=== PATIENT | male | born 1950 | race African-American/Black ===

== ENCOUNTER 2016-06-08 12:06 | Emergency (ER) | payer MEDICARE, MEDICAID ==
[~2016-06-08] VITALS: Ht 180.3 cm; Wt 112.0 kg
[~2016-06-08 12:06] MED LIST: ALBU05 IH; ALLO300T2 PO; COLC0.6T66 PO; COLCHICINE; DIAZ10TA4 PO; LISI20TA PO; METF500T PO; OMEP20CA4 PO; SOLI5TAB5 PO
[2016-06-08] MEDS ORDERED: ACETAMINOPHEN WITH CODEINE 300/30MG TABLET PO ONE (16:30)
[2016-06-08 16:35] VITALS: BP 166/84
== END 2016-06-08 17:30 | disposition home or self-care (01) ==
LOC: ER 16:24
DX: M25.561 Pain in right knee (principal); M54.5 Low back pain; M10.9 Gout, unspecified; I10 Essential (primary) hypertension; E11.9 Type 2 diabetes mellitus without complications; F17.210 Nicotine dependence, cigarettes, uncomplicated; Z88.6 Allergy status to analgesic agent; Z79.84 Long term (current) use of oral hypoglycemic drugs; Z79.899 Other long term (current) drug therapy; Z90.49 Acquired absence of other specified parts of digestive tract; Z96.659 Presence of unspecified artificial knee joint; Z82.49 Family history of ischemic heart disease and other diseases of the circulatory system
CPT/HCPCS: 99282

== ENCOUNTER 2017-06-22 06:46 | Emergency (ER) | payer MEDICARE, MEDICAID ==
[~2017-06-22] VITALS: Ht 180.3 cm; Wt 106.0 kg
[~2017-06-22 06:46] MED LIST changes: +ASCO-316 PO; +HYDR-519 PO; +OXYC30TA89 PO; +SOLI5TAB PO; -SOLI5TAB5 PO; +[UNRECOGNIZED DRUG - CODE] PO
[2017-06-22] MEDS ORDERED: METHYLPREDNISOLONE SOD SUCC 125 MG/2 ML VIAL IV STA (07:03)
[2017-06-22] MEDS ORDERED: IPRATROPIUM BROMIDE (0.02%) 0.5MG/2.5ML NEB HHN STA (07:03)
[2017-06-22] MEDS: ALBUTEROL (0.083%) 2.5MG/3ML NEB HHN SCH ×3 (07:15→08:23)
[2017-06-22 07:39] LABS: BASOPHILS % 0.9 % (0.0-2.0); HEMATOCRIT. 51.9 % (42.0-52.0); HEMOGLOBIN. 17.3 g/dL (14.0-18.0); LYMPHOCYTES % 28.3 % (20.0-50.0); MEAN CORPUSCULAR VOLUME 87.2 fL (80.0-94.0); MEAN PLATELET VOLUME 10.3 fl (7.4-10.4); MONOCYTES % 6.6 % (2.0-8.0); NEUTROPHILS % 61.2 % (40.0-76.0); PLATELET 93 x1000/uL (130-400); RED BLOOD CELL COUNT 5.95 mill/uL (4.7-6.1); RED CELL DISTRIBUTION WIDTH 15.6 % (11.6-14.6)
[2017-06-22 07:41] LABS: CHLORIDE 103 mEq/L (98-107)
[2017-06-22] MEDS ORDERED: ACETAMINOPHEN 325MG TABLET PO ONE (08:30)
[2017-06-22] MEDS ORDERED: ALBUTEROL (0.083%) 2.5MG/3ML NEB HHN ONE (10:45)
[2017-06-22] MEDS ORDERED: KETOROLAC 30MG/ML VIAL IV ONE (10:45)
[2017-06-22 11:50] VITALS: BP 140/74
== END 2017-06-22 12:10 | disposition home or self-care (01) ==
LOC: ER 06:46 → CANBEDREQ 12:41
DX: J44.1 Chronic obstructive pulmonary disease with (acute) exacerbation (principal); I10 Essential (primary) hypertension; E11.9 Type 2 diabetes mellitus without complications; E78.5 Hyperlipidemia, unspecified; E66.9 Obesity, unspecified; Z88.6 Allergy status to analgesic agent; Z88.8 Allergy status to other drugs, medicaments and biological substances; Z72.0 Tobacco use
CPT/HCPCS: 36415; 71045; 80053; 83880; 84484; 85025; 93005; 94640; 96374; 96375; 99285; J1885; J2930; J7611

== ENCOUNTER 2018-04-04 06:19 | Inpatient (IN) | payer MEDICARE, MEDICAID ==
[~2018-04-04] VITALS: Ht 180.3 cm; Wt 127.6 kg
[2018-04-04] MEDS: BLOOD SUGAR DIAGNOSTIC STRIP TEST SCH ×2 (01:32→17:02)
[~2018-04-04 06:19] MED LIST changes: -COLCHICINE; -SOLI5TAB PO
[2018-04-04] MEDS ORDERED: IPRATROPIUM BROMIDE (0.02%) 0.5MG/2.5ML NEB HHN STA (06:25)
[2018-04-04] MEDS ORDERED: METHYLPREDNISOLONE SOD SUCC 125 MG/2 ML VIAL IV STA (06:25)
[2018-04-04] MEDS ORDERED: ALBUTEROL (0.083%) 2.5MG/3ML NEB HHN STA (06:25)
[2018-04-04] MEDS ORDERED: SODIUM CHLORIDE 0.9% 1,000 ML IV ONE (06:28)
[2018-04-04 07:24] LABS: BASOPHILS % 0.8 % (0.0-2.0); EOSINOPHILS % 2.7 % (0.0-5.0); HEMATOCRIT. 57.1 % (42.0-52.0); HEMOGLOBIN. 18.9 g/dL (14.0-18.0); MEAN CORPUSCULAR VOLUME 87.9 fL (80.0-94.0); MEAN PLATELET VOLUME 9.3 fl (7.4-10.4); MONOCYTES % 8.4 % (2.0-8.0); NEUTROPHILS % 63.1 % (40.0-76.0); PLATELET 123 x1000/uL (130-400); RED BLOOD CELL COUNT 6.49 mill/uL (4.7-6.1); RED CELL DISTRIBUTION WIDTH 15.5 % (11.6-14.6)
[2018-04-04 07:31] LABS: CHLORIDE 97 mEq/L (98-107)
[2018-04-04 07:37] LABS: INR 1.2; PROTHROMBIN TIME 11.8 sec (9.1-11.1)
[2018-04-04 08:37] LABS: BG BASE EXCESS 2.5 mmol/L (-2.0-2.0); BG BILEVEL POS AIRWAY PRESSURE 15/5; BG CARBOXYHEMOGLOBIN 0.7 % (0.5-1.5); BG DEOXYHEMOGLOBIN 2.1 % (0.0-5.0); BG HCO3 ACT 28.8 mmol/L (22.0-26.0); BG METHEMOGLOBIN 0.5 % (0.0-1.5); BG OXYGEN SATURATION 97.9 % (92.0-98.5); BG OXYHEMOGLOBIN 96.7 % (94.0-97.0); BG PCO2 50.1 mmHg (35.0-45.0); BG PH 7.378 (7.350-7.450); BG PO2 107.5 mmHg (75.0-100.0); BG SAMPLE SITE RIGHT RADIAL; BG VENT MODE MASK - BIPAP; BG VENT RATE 18 set
[2018-04-04] MEDS ORDERED: LEVOFLOXACIN 750MG PREMIX 150 ML IV ONE (09:15)
[2018-04-04] MEDS ORDERED: LIDOCAINE HCL/PF 1% 2ML VIAL ONE (13:09)
[2018-04-04] MEDS ORDERED: DIPHENHYDRAMINE 50MG/ML VIAL IV PRN (13:30)
[2018-04-04] MEDS ORDERED: GUAIFENESIN 200MG/10ML SUGAR FREE UDC PO PRN (13:30)
[2018-04-04] MEDS ORDERED: ONDANSETRON HCL 4MG/2ML INJ IV PRN (13:30)
[2018-04-04] MEDS ORDERED: ACETAMINOPHEN 650MG SUPP PR PRN (13:30)
[2018-04-04] MEDS ORDERED: ACETAMINOPHEN 325MG TABLET PO PRN (13:30)
[2018-04-04] MEDS ORDERED: IPRATROPIUM/ALBUTEROL 0.5-3(2.5)MG/3ML NEB INH PRN (13:30)
[2018-04-04] MEDS ORDERED: CLONIDINE 0.1MG TABLET PO PRN (13:30)
[2018-04-04] MEDS ORDERED: LORAZEPAM 0.5MG TABLET PO PRN (13:30)
[2018-04-04] MEDS ORDERED: DOCUSATE SODIUM 100MG CAPSULE PO PRN (13:30)
[2018-04-04] MEDS ORDERED: NA PHOS,M-B/NA PHOS,DI-BA ENEMA 118ML PR PRN (13:30)
[2018-04-04] MEDS: IPRATROPIUM/ALBUTEROL 0.5-3(2.5)MG/3ML NEB INH SCH ×2 (13:30→16:36)
[2018-04-04] MEDS ORDERED: MAGNESIUM/ALUMINUM HYDROXIDE/SIMETHICONE 30ML UDC PO PRN (13:30)
[2018-04-04 14:54] LABS: HEMATOCRIT 52.4 % (42.0-52.0); HEMOGLOBIN 17.4 g/dL (14.0-18.0); MEAN CORPUSCULAR HEMOGLOBIN 29.2 pg (28.0-32.0); PLATELET 116 x1000/uL (130-400); RED BLOOD CELL COUNT 5.95 mill/uL (4.7-6.1); RED CELL DISTRIBUTION WIDTH 15.2 % (11.6-14.6)
[2018-04-04] MEDS ORDERED: CEFTRIAXONE 1 G PREMIX 50 ML IV SCH (15:00)
[2018-04-04] MEDS ORDERED: AZITHROMYCIN 500 MG in DEXT 5% WATER 250 ML IV SCH ×6 (15:00)
[2018-04-04 15:01] LABS: CHLORIDE 100 mEq/L (98-107)
[2018-04-04 15:09] LABS: CREATINE KINASE 966 IU/L (39-308)
[2018-04-04 15:10] LABS: CREATINE KINASE MB FRACTION 9.9 ng/mL (0.5-3.6)
[2018-04-04] MEDS: METHYLPREDNISOLONE SOD SUCC 40 MG/ML VIAL IV SCH (15:24)
[2018-04-04] MEDS ORDERED: LISINOPRIL 20 MG PO SCH (16:00)
[2018-04-04] MEDS ORDERED: DEXTROSE 50% WATER 50ML SYRINGE IV PRN (16:00)
[2018-04-04] MEDS ORDERED: BUDESONIDE 0.5MG/2ML NEB HHN SCH (16:15)
[2018-04-04] MEDS: SODIUM CHLORIDE 0.45% 1,000 ML IV SCH (16:40)
[2018-04-04 17:43] LABS: HEPATITIS B SURFACE ANTIGEN NEGATIVE
[2018-04-04 18:12] LABS: HEPATITIS A AB IGM NEGATIVE (NEGATIVE)
[2018-04-04] MEDS: INSULIN LISPRO 100 UNITS/ML SUBCUT SCH (18:20)
[2018-04-04] MEDS ORDERED: NITROGLYCERIN OINT 1GM/INCH UDPKT TD NR (19:00)
[2018-04-05] VITALS (12 sets, daily range): BP systolic 122–146; BP diastolic 68–96
[2018-04-05] MEDS: IPRATROPIUM/ALBUTEROL 0.5-3(2.5)MG/3ML NEB INH SCH ×6 (00:46→20:53)
[2018-04-05] MEDS: METHYLPREDNISOLONE SOD SUCC 40 MG/ML VIAL IV SCH ×4 (01:31→22:52)
[2018-04-05] MEDS: INSULIN LISPRO 100 UNITS/ML SUBCUT SCH ×5 (01:31→21:48)
[2018-04-05] MEDS: LOSARTAN POTASSIUM 25 MG TABLET PO SCH ×3 (01:31→21:00)
[2018-04-05] MEDS: NITROGLYCERIN OINT 1GM/INCH UDPKT TD SCH ×5 (01:31→21:46)
[2018-04-05] MEDS: HYDROCODONE/APAP 7.5/325MG 1 TAB TABLET PO PRN ×3 (01:58→21:49)
[2018-04-05] MEDS ORDERED: ENOXAPARIN 100MG/ML SYR SUBCUT SCH (05:00)
[2018-04-05 06:32] LABS: BASOPHILS % 0.5 % (0.0-2.0); HEMATOCRIT. 49.6 % (42.0-52.0); HEMOGLOBIN. 16.2 g/dL (14.0-18.0); LYMPHOCYTES % 9.7 % (20.0-50.0); MEAN CORPUSCULAR HEMOGLOBIN 28.7 pg (28.0-32.0); MEAN CORPUSCULAR VOLUME 87.8 fL (80.0-94.0); MEAN PLATELET VOLUME 9.5 fl (7.4-10.4); MONOCYTES % 4.2 % (2.0-8.0); NEUTROPHILS % 85.6 % (40.0-76.0); PLATELET 115 x1000/uL (130-400); RED BLOOD CELL COUNT 5.65 mill/uL (4.7-6.1); RED CELL DISTRIBUTION WIDTH 15.4 % (11.6-14.6)
[2018-04-05 06:43] LABS: CHLORIDE 103 mEq/L (98-107)
[2018-04-05 06:53] LABS: CREATINE KINASE MB FRACTION 12.5 ng/mL (0.5-3.6); LDL CHOLESTEROL 42 mg/dL (5-100)
[2018-04-05 06:54] LABS: CREATINE KINASE 814 IU/L (39-308)
[2018-04-05 06:55] LABS: T4 FREE 1.08 ng/dL (0.76-1.46)
[2018-04-05 06:56] LABS: HDL CHOLESTEROL 41 mg/dL (40-59)
[2018-04-05] MEDS: BLOOD SUGAR DIAGNOSTIC STRIP TEST SCH ×4 (07:30→21:30)
[2018-04-05] MEDS: OMEPRAZOLE 20MG CAPSULE EXTENDED RELEASE PO SCH (07:30)
[2018-04-05] MEDS: METFORMIN HCL 500MG TABLET PO SCH ×2 (08:00→17:29)
[2018-04-05] MEDS: VITAMIN E 1,000 UNIT CAPSULE PO SCH (09:00)
[2018-04-05 09:21] LABS: BG BASE EXCESS 2.2 mmol/L (-2.0-2.0); BG BILEVEL POS AIRWAY PRESSURE 15/5; BG CARBOXYHEMOGLOBIN 0.6 % (0.5-1.5); BG DEOXYHEMOGLOBIN 1.9 % (0.0-5.0); BG FRACTION INSPIRED OXYGEN 40; BG HCO3 ACT 27.8 mmol/L (22.0-26.0); BG METHEMOGLOBIN 0.4 % (0.0-1.5); BG OXYGEN SATURATION 98.1 % (92.0-98.5); BG OXYHEMOGLOBIN 97.1 % (94.0-97.0); BG PCO2 46.4 mmHg (35.0-45.0); BG PH 7.396 (7.350-7.450); BG PO2 115.9 mmHg (75.0-100.0); BG SAMPLE SITE RIGHT RADIAL; BG TOTAL HEMOGLOBIN 17.9 g/dL (12.0-18.0); BG VENT MODE MASK - BIPAP
[2018-04-05] MEDS: ASCORBIC ACID 500 MG TABLET PO SCH (09:32)
[2018-04-05] MEDS: ALLOPURINOL 300 MG TABLET PO SCH (09:33)
[2018-04-05] MEDS: COLCHICINE 0.6MG TABLET PO SCH (09:34)
[2018-04-05] MEDS: SODIUM CHLORIDE 0.45% 1,000 ML IV SCH (09:35)
[2018-04-05] MEDS: BUDESONIDE 0.5MG/2ML NEB HHN SCH ×2 (09:55→20:53)
[2018-04-05] MEDS ORDERED: CEFTRIAXONE 1 G PREMIX 50 ML IV SCH (13:00)
[2018-04-05] MEDS ORDERED: AZITHROMYCIN 500 MG in DEXT 5% WATER 250 ML IV SCH (14:00)
[2018-04-05] MEDS: CEFTRIAXONE 1,000 MG in DEXTROSE 5% WATER 50 ML IV SCH (14:57)
[2018-04-05] MEDS ORDERED: ASPIRIN 81MG EC TABLET PO SCH (15:30)
[2018-04-05] MEDS: ENOXAPARIN 150MG/ML SYR SUBCUT SCH (17:29)
[2018-04-06] VITALS (12 sets, daily range): BP systolic 109–160; BP diastolic 66–101
[2018-04-06] MEDS: IPRATROPIUM/ALBUTEROL 0.5-3(2.5)MG/3ML NEB INH SCH ×6 (00:37→21:14)
[2018-04-06] MEDS: SODIUM CHLORIDE 0.45% 1,000 ML IV SCH ×2 (01:37→13:04)
[2018-04-06] MEDS: ENOXAPARIN 150MG/ML SYR SUBCUT SCH ×2 (06:19→17:43)
[2018-04-06] MEDS: METHYLPREDNISOLONE SOD SUCC 40 MG/ML VIAL IV SCH ×3 (06:19→23:00)
[2018-04-06 07:24] LABS: BASOPHILS % 0.1 % (0.0-2.0); HEMATOCRIT. 47.4 % (42.0-52.0); HEMOGLOBIN. 15.6 g/dL (14.0-18.0); MEAN CORPUSCULAR HEMOGLOBIN 28.8 pg (28.0-32.0); MEAN CORPUSCULAR VOLUME 87.7 fL (80.0-94.0); MEAN PLATELET VOLUME 9.9 fl (7.4-10.4); MONOCYTES % 3.6 % (2.0-8.0); NEUTROPHILS % 88.3 % (40.0-76.0); PLATELET 131 x1000/uL (130-400); RED CELL DISTRIBUTION WIDTH 15.4 % (11.6-14.6)
[2018-04-06] MEDS: BLOOD SUGAR DIAGNOSTIC STRIP TEST SCH ×4 (07:30→21:20)
[2018-04-06 07:32] LABS: CHLORIDE 104 mEq/L (98-107)
[2018-04-06 07:44] LABS: CREATINE KINASE 440 IU/L (39-308)
[2018-04-06 07:44] LABS: CLARITY URINE CLEAR (CLEAR); COLOR URINE YELLOW (YELLOW); KETONES URINE NEGATIVE (NEGATIVE); LEUKOCYTE ESTERASE URINE NEGATIVE (NEGATIVE); NITRITE URINE NEGATIVE (NEGATIVE); OCCULT BLOOD URINE NEGATIVE (NEGATIVE); PH URINE 5.5 (4.5-8.0); PROTEIN URINE 1+ (NEGATIVE); UROBILINOGEN URINE 0.2 E.U./dL (0.2-1.0)
[2018-04-06 07:50] LABS: CREATINE KINASE MB FRACTION 10.5 ng/mL (0.5-3.6)
[2018-04-06 07:55] LABS: *AMPHETAMINES SCREEN URINE NEGATIVE (NEGATIVE); *BARBITURATES SCREEN URINE NEGATIVE (NEGATIVE); *BENZODIAZEPINES SCREEN URINE PRESUMTIVE POSITIVE (NEGATIVE); *COCAINE SCREEN URINE NEGATIVE (NEGATIVE)
[2018-04-06 07:56] LABS: CANNABINOID URINE SCREEN NEGATIVE (NEGATIVE); METHADONE URINE SCREEN NEGATIVE (NEGATIVE); OPIATES URINE SCREEN PRESUMTIVE POSITIVE (NEGATIVE); PHENCYCLIDINE URINE SCREEN NEGATIVE (NEGATIVE)
[2018-04-06] MEDS: COLCHICINE 0.6MG TABLET PO SCH (08:35)
[2018-04-06] MEDS: ASCORBIC ACID 500 MG TABLET PO SCH (08:35)
[2018-04-06] MEDS: LOSARTAN POTASSIUM 25 MG TABLET PO SCH ×2 (08:37→20:30)
[2018-04-06] MEDS: NITROGLYCERIN OINT 1GM/INCH UDPKT TD SCH ×4 (08:37→20:30)
[2018-04-06] MEDS: METFORMIN HCL 500MG TABLET PO SCH ×2 (08:38→17:43)
[2018-04-06] MEDS: OMEPRAZOLE 20MG CAPSULE EXTENDED RELEASE PO SCH (08:38)
[2018-04-06] MEDS: INSULIN LISPRO 100 UNITS/ML SUBCUT SCH ×4 (08:40→20:27)
[2018-04-06 09:03] LABS: BG BASE EXCESS 3.5 mmol/L (-2.0-2.0); BG CARBOXYHEMOGLOBIN 0.6 % (0.5-1.5); BG DEOXYHEMOGLOBIN 7.3 % (0.0-5.0); BG FRACTION INSPIRED OXYGEN 21; BG HCO3 ACT 30.9 mmol/L (22.0-26.0); BG METHEMOGLOBIN 0.2 % (0.0-1.5); BG OXYGEN SATURATION 92.6 % (92.0-98.5); BG OXYHEMOGLOBIN 91.9 % (94.0-97.0); BG PCO2 56.9 mmHg (35.0-45.0); BG PH 7.353 (7.350-7.450); BG SAMPLE SITE LEFT RADIAL; BG TOTAL HEMOGLOBIN 16.8 g/dL (12.0-18.0); BG VENT MODE ROOM AIR
[2018-04-06] MEDS: BUDESONIDE 0.5MG/2ML NEB HHN SCH ×2 (09:26→21:13)
[2018-04-06] MEDS: VITAMIN E 1,000 UNIT CAPSULE PO SCH (09:38)
[2018-04-06] MEDS: ALLOPURINOL 300 MG TABLET PO SCH (09:38)
[2018-04-06] MEDS: HYDROCODONE/APAP 7.5/325MG 1 TAB TABLET PO PRN ×2 (11:35→22:58)
[2018-04-06] MEDS: THROAT LOZENGES-BENZOCAINE/MENTH/CETYLPYRD CL LOZENGES MM PRN ×2 (12:50→18:00)
[2018-04-06] MEDS: CEFTRIAXONE 1,000 MG in DEXTROSE 5% WATER 50 ML IV SCH (13:45)
[2018-04-06] MEDS ORDERED: AZITHROMYCIN 500 MG in DEXT 5% WATER 250 ML IV SCH (14:00)
[2018-04-07] VITALS (12 sets, daily range): BP systolic 124–167; BP diastolic 38–97
[2018-04-07] MEDS: IPRATROPIUM/ALBUTEROL 0.5-3(2.5)MG/3ML NEB INH SCH ×7 (00:47→23:52)
[2018-04-07] MEDS: ENOXAPARIN 150MG/ML SYR SUBCUT SCH ×2 (06:06→17:19)
[2018-04-07] MEDS: METHYLPREDNISOLONE SOD SUCC 40 MG/ML VIAL IV SCH ×3 (06:06→20:44)
[2018-04-07] MEDS: HYDROCODONE/APAP 7.5/325MG 1 TAB TABLET PO PRN ×2 (06:06→20:36)
[2018-04-07] MEDS: BLOOD SUGAR DIAGNOSTIC STRIP TEST SCH ×4 (07:47→21:00)
[2018-04-07] MEDS: ALLOPURINOL 300 MG TABLET PO SCH (08:23)
[2018-04-07] MEDS: COLCHICINE 0.6MG TABLET PO SCH (08:23)
[2018-04-07] MEDS: VITAMIN E 1,000 UNIT CAPSULE PO SCH (08:23)
[2018-04-07] MEDS: OMEPRAZOLE 20MG CAPSULE EXTENDED RELEASE PO SCH (08:23)
[2018-04-07] MEDS: AZITHROMYCIN 500 MG TABLET PO SCH (08:23)
[2018-04-07] MEDS: LOSARTAN POTASSIUM 25 MG TABLET PO SCH ×2 (08:23→20:36)
[2018-04-07] MEDS: ASCORBIC ACID 500 MG TABLET PO SCH (08:23)
[2018-04-07] MEDS: NITROGLYCERIN OINT 1GM/INCH UDPKT TD SCH ×4 (08:23→20:36)
[2018-04-07] MEDS: METFORMIN HCL 500MG TABLET PO SCH ×2 (08:23→17:14)
[2018-04-07] MEDS: INSULIN LISPRO 100 UNITS/ML SUBCUT SCH ×4 (08:25→20:44)
[2018-04-07] MEDS: BUDESONIDE 0.5MG/2ML NEB HHN SCH ×2 (09:17→21:00)
[2018-04-07] MEDS: THROAT LOZENGES-BENZOCAINE/MENTH/CETYLPYRD CL LOZENGES MM PRN ×2 (11:35→17:14)
[2018-04-07] MEDS: CEFTRIAXONE 1,000 MG in DEXTROSE 5% WATER 50 ML IV SCH (14:34)
[2018-04-07] MEDS: FAMOTIDINE 20MG TABLET PO SCH (20:46)
[2018-04-08] VITALS (12 sets, daily range): BP systolic 115–168; BP diastolic 69–99
[2018-04-08] MEDS: IPRATROPIUM/ALBUTEROL 0.5-3(2.5)MG/3ML NEB INH SCH ×5 (05:03→21:38)
[2018-04-08] MEDS: ENOXAPARIN 150MG/ML SYR SUBCUT SCH ×2 (05:48→18:00)
[2018-04-08] MEDS: METHYLPREDNISOLONE SOD SUCC 40 MG/ML VIAL IV SCH ×2 (05:48→15:03)
[2018-04-08] MEDS: BLOOD SUGAR DIAGNOSTIC STRIP TEST SCH ×4 (08:03→21:28)
[2018-04-08] MEDS: BUDESONIDE 0.5MG/2ML NEB HHN SCH (08:13)
[2018-04-08] MEDS: ASCORBIC ACID 500 MG TABLET PO SCH (08:31)
[2018-04-08] MEDS: ALLOPURINOL 300 MG TABLET PO SCH (08:31)
[2018-04-08] MEDS: LOSARTAN POTASSIUM 25 MG TABLET PO SCH ×2 (08:31→21:28)
[2018-04-08] MEDS: VITAMIN E 1,000 UNIT CAPSULE PO SCH (08:31)
[2018-04-08] MEDS: AZITHROMYCIN 500 MG TABLET PO SCH (08:31)
[2018-04-08] MEDS: METFORMIN HCL 500MG TABLET PO SCH ×2 (08:31→18:02)
[2018-04-08] MEDS: FAMOTIDINE 20MG TABLET PO SCH ×2 (08:31→21:28)
[2018-04-08] MEDS: COLCHICINE 0.6MG TABLET PO SCH (08:32)
[2018-04-08] MEDS: INSULIN LISPRO 100 UNITS/ML SUBCUT SCH ×4 (08:33→21:30)
[2018-04-08] MEDS: NITROGLYCERIN OINT 1GM/INCH UDPKT TD SCH ×4 (08:34→21:28)
[2018-04-08] MEDS: CEFTRIAXONE 1,000 MG in DEXTROSE 5% WATER 50 ML IV SCH (15:04)
[2018-04-08] MEDS: HYDROCODONE/APAP 7.5/325MG 1 TAB TABLET PO PRN ×2 (16:17→21:58)
[2018-04-08] MEDS: THROAT LOZENGES-BENZOCAINE/MENTH/CETYLPYRD CL LOZENGES MM PRN (18:05)
[2018-04-09] VITALS (12 sets, daily range): BP systolic 129–168; BP diastolic 79–90
[2018-04-09] MEDS: IPRATROPIUM/ALBUTEROL 0.5-3(2.5)MG/3ML NEB INH SCH ×6 (00:40→21:04)
[2018-04-09] MEDS: METHYLPREDNISOLONE SOD SUCC 40 MG/ML VIAL IV SCH ×2 (02:45→15:48)
[2018-04-09] MEDS ORDERED: ENOXAPARIN 100MG/ML SYR SUBCUT NR (06:19)
[2018-04-09] MEDS ORDERED: ENOXAPARIN 30MG/0.3ML SYR SUBCUT NR (06:20)
[2018-04-09] MEDS: THROAT LOZENGES-BENZOCAINE/MENTH/CETYLPYRD CL LOZENGES MM PRN (06:26)
[2018-04-09 07:20] LABS: HEMATOCRIT 50.7 % (42.0-52.0); HEMOGLOBIN 16.6 g/dL (14.0-18.0); MEAN CORPUSCULAR HEMOGLOBIN 28.6 pg (28.0-32.0); MEAN CORPUSCULAR VOLUME 87.5 fL (80.0-94.0); PLATELET 134 x1000/uL (130-400); RED BLOOD CELL COUNT 5.79 mill/uL (4.7-6.1); RED CELL DISTRIBUTION WIDTH 15.2 % (11.6-14.6)
[2018-04-09] MEDS: BLOOD SUGAR DIAGNOSTIC STRIP TEST SCH ×4 (08:00→21:22)
[2018-04-09] MEDS: INSULIN LISPRO 100 UNITS/ML SUBCUT SCH ×4 (08:40→21:23)
[2018-04-09] MEDS: NITROGLYCERIN OINT 1GM/INCH UDPKT TD SCH ×4 (08:42→21:22)
[2018-04-09] MEDS: FAMOTIDINE 20MG TABLET PO SCH ×2 (08:42→21:22)
[2018-04-09] MEDS: LOSARTAN POTASSIUM 25 MG TABLET PO SCH ×2 (08:42→21:22)
[2018-04-09] MEDS: ASCORBIC ACID 500 MG TABLET PO SCH (08:42)
[2018-04-09] MEDS: COLCHICINE 0.6MG TABLET PO SCH (08:42)
[2018-04-09] MEDS: VITAMIN E 1,000 UNIT CAPSULE PO SCH (08:42)
[2018-04-09] MEDS: AZITHROMYCIN 500 MG TABLET PO SCH (08:42)
[2018-04-09] MEDS: ALLOPURINOL 300 MG TABLET PO SCH (08:42)
[2018-04-09] MEDS: METFORMIN HCL 500MG TABLET PO SCH ×2 (08:42→18:21)
[2018-04-09 09:02] LABS: BG BASE EXCESS 12.4 mmol/L (-2.0-2.0); BG CARBOXYHEMOGLOBIN 0.4 % (0.5-1.5); BG DEOXYHEMOGLOBIN 2.5 % (0.0-5.0); BG FRACTION INSPIRED OXYGEN 32; BG METHEMOGLOBIN 0.4 % (0.0-1.5); BG OXYGEN SATURATION 97.5 % (92.0-98.5); BG OXYHEMOGLOBIN 96.7 % (94.0-97.0); BG PCO2 66.4 mmHg (35.0-45.0); BG PH 7.408 (7.350-7.450); BG PO2 98.8 mmHg (75.0-100.0); BG SAMPLE SITE RIGHT RADIAL; BG TOTAL HEMOGLOBIN 17.5 g/dL (12.0-18.0); BG VENT MODE NASAL CANNULA
[2018-04-09 09:56] LABS: CHLORIDE 102 mEq/L (98-107)
[2018-04-09 10:04] LABS: CREATINE KINASE 240 IU/L (39-308)
[2018-04-09 10:06] LABS: CREATINE KINASE MB FRACTION 7.2 ng/mL (0.5-3.6)
[2018-04-09] MEDS: HYDROCODONE/APAP 7.5/325MG 1 TAB TABLET PO PRN ×2 (13:05→22:28)
[2018-04-09] MEDS ORDERED: LIDOCAINE HCL/PF 1% 2ML VIAL ONE (13:45)
[2018-04-09] MEDS: CEFTRIAXONE 1,000 MG in DEXTROSE 5% WATER 50 ML IV SCH (18:20)
[2018-04-09] MEDS: ENOXAPARIN 150MG/ML SYR SUBCUT SCH (18:22)
[2018-04-10] VITALS (11 sets, daily range): BP systolic 134–162; BP diastolic 62–97
[2018-04-10] MEDS: IPRATROPIUM/ALBUTEROL 0.5-3(2.5)MG/3ML NEB INH SCH ×4 (00:38→20:16)
[2018-04-10] MEDS: METHYLPREDNISOLONE SOD SUCC 40 MG/ML VIAL IV SCH (04:44)
[2018-04-10] MEDS: THROAT LOZENGES-BENZOCAINE/MENTH/CETYLPYRD CL LOZENGES MM PRN (06:21)
[2018-04-10] MEDS: ENOXAPARIN 150MG/ML SYR SUBCUT SCH (06:21)
[2018-04-10 06:56] LABS: HEMATOCRIT 50.8 % (42.0-52.0); HEMOGLOBIN 16.6 g/dL (14.0-18.0); MEAN CORPUSCULAR HEMOGLOBIN 28.5 pg (28.0-32.0); MEAN CORPUSCULAR VOLUME 87.5 fL (80.0-94.0); PLATELET 140 x1000/uL (130-400); RED BLOOD CELL COUNT 5.81 mill/uL (4.7-6.1); RED CELL DISTRIBUTION WIDTH 14.9 % (11.6-14.6)
[2018-04-10 07:16] LABS: CHLORIDE 99 mEq/L (98-107)
[2018-04-10] MEDS: BLOOD SUGAR DIAGNOSTIC STRIP TEST SCH ×4 (08:26→20:48)
[2018-04-10] MEDS: FAMOTIDINE 20MG TABLET PO SCH ×2 (08:52→20:45)
[2018-04-10] MEDS: VITAMIN E 1,000 UNIT CAPSULE PO SCH (08:52)
[2018-04-10] MEDS: LOSARTAN POTASSIUM 25 MG TABLET PO SCH ×2 (08:53→20:45)
[2018-04-10] MEDS: METFORMIN HCL 500MG TABLET PO SCH ×2 (08:53→18:00)
[2018-04-10] MEDS: ALLOPURINOL 300 MG TABLET PO SCH (08:53)
[2018-04-10] MEDS: ASCORBIC ACID 500 MG TABLET PO SCH (08:53)
[2018-04-10] MEDS: COLCHICINE 0.6MG TABLET PO SCH ×2 (08:53→09:00)
[2018-04-10] MEDS: AZITHROMYCIN 500 MG TABLET PO SCH (08:54)
[2018-04-10] MEDS: NITROGLYCERIN OINT 1GM/INCH UDPKT TD SCH ×4 (08:54→20:48)
[2018-04-10] MEDS: INSULIN LISPRO 100 UNITS/ML SUBCUT SCH ×4 (09:11→20:47)
[2018-04-10] MEDS ORDERED: LIDOCAINE HCL/PF 1% 2ML VIAL ONE (15:03)
[2018-04-10] MEDS: CEFTRIAXONE 1,000 MG in DEXTROSE 5% WATER 50 ML IV SCH (16:33)
[2018-04-10 18:53] LABS: BG BASE EXCESS 7.1 mmol/L (-2.0-2.0); BG CARBOXYHEMOGLOBIN 0.2 % (0.5-1.5); BG DEOXYHEMOGLOBIN 9.1 % (0.0-5.0); BG FRACTION INSPIRED OXYGEN 21; BG HCO3 ACT 34.2 mmol/L (22.0-26.0); BG METHEMOGLOBIN 0.4 % (0.0-1.5); BG OXYGEN SATURATION 90.8 % (92.0-98.5); BG OXYHEMOGLOBIN 90.3 % (94.0-97.0); BG PCO2 55.4 mmHg (35.0-45.0); BG PH 7.408 (7.350-7.450); BG PO2 60.3 mmHg (75.0-100.0); BG SAMPLE SITE RIGHT RADIAL; BG TOTAL HEMOGLOBIN 18.7 g/dL (12.0-18.0); BG VENT MODE ROOM AIR
[2018-04-10] MEDS: ENOXAPARIN 30MG/0.3ML SYR SUBCUT SCH (20:45)
[2018-04-10] MEDS: HYDROCODONE/APAP 7.5/325MG 1 TAB TABLET PO PRN (20:47)
[2018-04-11] VITALS (7 sets, daily range): BP systolic 128–163; BP diastolic 73–101
[2018-04-11] MEDS: IPRATROPIUM/ALBUTEROL 0.5-3(2.5)MG/3ML NEB INH SCH ×5 (01:07→16:22)
[2018-04-11] MEDS: METHYLPREDNISOLONE SOD SUCC 40 MG/ML VIAL IV SCH ×2 (03:39→15:43)
[2018-04-11 07:31] LABS: HEMATOCRIT 52.4 % (42.0-52.0); HEMOGLOBIN 17.2 g/dL (14.0-18.0); MEAN CORPUSCULAR HEMOGLOBIN 28.7 pg (28.0-32.0); MEAN CORPUSCULAR VOLUME 87.5 fL (80.0-94.0); PLATELET 145 x1000/uL (130-400); RED BLOOD CELL COUNT 5.99 mill/uL (4.7-6.1)
[2018-04-11 07:36] LABS: CHLORIDE 96 mEq/L (98-107)
[2018-04-11] MEDS: BLOOD SUGAR DIAGNOSTIC STRIP TEST SCH ×2 (08:03→17:28)
[2018-04-11] MEDS: METFORMIN HCL 500MG TABLET PO SCH ×2 (08:10→17:57)
[2018-04-11] MEDS: INSULIN LISPRO 100 UNITS/ML SUBCUT SCH ×3 (08:11→17:28)
[2018-04-11] MEDS: ENOXAPARIN 30MG/0.3ML SYR SUBCUT SCH (08:47)
[2018-04-11] MEDS: LOSARTAN POTASSIUM 25 MG TABLET PO SCH (08:48)
[2018-04-11] MEDS: FAMOTIDINE 20MG TABLET PO SCH (08:48)
[2018-04-11] MEDS: ALLOPURINOL 300 MG TABLET PO SCH (08:48)
[2018-04-11] MEDS: ASCORBIC ACID 500 MG TABLET PO SCH (08:48)
[2018-04-11] MEDS: VITAMIN E 1,000 UNIT CAPSULE PO SCH (08:48)
[2018-04-11] MEDS: AZITHROMYCIN 500 MG TABLET PO SCH (08:48)
[2018-04-11] MEDS: COLCHICINE 0.6MG TABLET PO SCH ×2 (08:48→09:00)
[2018-04-11] MEDS: NITROGLYCERIN OINT 1GM/INCH UDPKT TD SCH ×3 (09:00→17:00)
[2018-04-11] MEDS: HYDROCODONE/APAP 7.5/325MG 1 TAB TABLET PO PRN ×2 (09:19→16:02)
[2018-04-11] MEDS ORDERED: CEFTRIAXONE 1,000 MG in DEXTROSE 5% WATER 50 ML IV SCH (15:00)
== END 2018-04-11 19:19 | disposition home or self-care (01) | DRG 291 ==
LOC: ER 06:19 → 5EST 09:32 → EDBEDREQ 09:36 → ENRESERV 21:09 → 8WST 04-11 12:12
PROVIDERS: ADMIT Internal Medicine; ATTEND Internal Medicine
PROC: 5A09357 Assistance with Respiratory Ventilation, Less than 24 Consecutive Hours, Continuous Positive Airway Pressure (ICD-10-PCS; principal; 2018-04-04)
PROC: 5A09357 Assistance with Respiratory Ventilation, Less than 24 Consecutive Hours, Continuous Positive Airway Pressure (ICD-10-PCS; 2018-04-06)
PROC: 5A09357 Assistance with Respiratory Ventilation, Less than 24 Consecutive Hours, Continuous Positive Airway Pressure (ICD-10-PCS; 2018-04-07)
PROC: 5A09357 Assistance with Respiratory Ventilation, Less than 24 Consecutive Hours, Continuous Positive Airway Pressure (ICD-10-PCS; 2018-04-08)
PROC: 5A09357 Assistance with Respiratory Ventilation, Less than 24 Consecutive Hours, Continuous Positive Airway Pressure (ICD-10-PCS; 2018-04-09)
PROC: 5A09357 Assistance with Respiratory Ventilation, Less than 24 Consecutive Hours, Continuous Positive Airway Pressure (ICD-10-PCS; 2018-04-10)
DX: I13.0 Hypertensive heart and chronic kidney disease with heart failure and stage 1 through stage 4 chronic kidney disease, or unspecified chronic kidney disease (principal); J18.9 Pneumonia, unspecified organism; I50.33 Acute on chronic diastolic (congestive) heart failure; J96.22 Acute and chronic respiratory failure with hypercapnia; E66.2 Morbid (severe) obesity with alveolar hypoventilation; E87.2 Acidosis; J44.1 Chronic obstructive pulmonary disease with (acute) exacerbation; J44.0 Chronic obstructive pulmonary disease with (acute) lower respiratory infection; D69.6 Thrombocytopenia, unspecified; E11.22 Type 2 diabetes mellitus with diabetic chronic kidney disease; E11.621 Type 2 diabetes mellitus with foot ulcer; E11.65 Type 2 diabetes mellitus with hyperglycemia; E78.00 Pure hypercholesterolemia, unspecified; E78.5 Hyperlipidemia, unspecified; F17.210 Nicotine dependence, cigarettes, uncomplicated; G47.33 Obstructive sleep apnea (adult) (pediatric); K21.9 Gastro-esophageal reflux disease without esophagitis; L97.509 Non-pressure chronic ulcer of other part of unspecified foot with unspecified severity; M10.9 Gout, unspecified; N18.9 Chronic kidney disease, unspecified; Z91.19 Patient's noncompliance with other medical treatment and regimen; Z88.5 Allergy status to narcotic agent; Z88.9 Allergy status to unspecified drugs, medicaments and biological substances; R74.0 Nonspecific elevation of levels of transaminase and lactic acid dehydrogenase [LDH]; E86.0 Dehydration; Z68.39 Body mass index [BMI] 39.0-39.9, adult
CPT/HCPCS: 36415; 36600; 71045; 76700; 80048; 80061; 80305; 82375; 82550; 82553; 82805; 82962; 83036; 83605; 83735; 83880; 84145; 84439; 84443; 84484; 84550; 85027; 86705; 86709; 86803; 87340; 87804; 93005; 93306; 93970; 94003; 94618; 94640; 94644; 94660; 96365; 96375; 97116; 97162; 97530; 99285; J0456; J0696; J1650; J1815; J1956; J2920; J2930; J3490; J7030; J7060; J7611; J7620; J7626

== ENCOUNTER 2018-09-20 20:31 | Emergency (ER) | payer MEDICARE, MEDICAID ==
[~2018-09-20] VITALS: Ht 180.3 cm; Wt 116.0 kg
[~2018-09-20 20:31] MED LIST changes: -LISI20TA PO; -OXYC30TA89 PO
[2018-09-20] MEDS ORDERED: HYDROCODONE/ACETAMINOPHEN 5/325MG TABLET PO ONE (23:30)
[2018-09-21] MEDS ORDERED: BACITRACIN ZINC OINT UDPKT TOP ONE
[2018-09-21] MEDS ORDERED: BACITRACIN 15GM TUBE TOP NR (00:15)
[2018-09-21 00:19] LABS: BASOPHILS % 0.8 % (0.0-2.0); EOSINOPHILS % 5.2 % (0.0-5.0); HEMATOCRIT. 49.3 % (42.0-52.0); HEMOGLOBIN. 16.4 g/dL (14.0-18.0); MEAN CORPUSCULAR HEMOGLOBIN 29.2 pg (28.0-32.0); MEAN PLATELET VOLUME 9.6 fl (7.4-10.4); MONOCYTES % 11.8 % (2.0-8.0); NEUTROPHILS % 55.2 % (40.0-76.0); PLATELET 113 x1000/uL (130-400); RED CELL DISTRIBUTION WIDTH 14.5 % (11.6-14.6)
[2018-09-21 00:20] LABS: CHLORIDE 102 mEq/L (98-107)
[2018-09-21 01:50] VITALS: BP 167/82
== END 2018-09-21 01:50 | disposition home or self-care (01) ==
LOC: ER 20:31
DX: E11.622 Type 2 diabetes mellitus with other skin ulcer (principal); L97.829 Non-pressure chronic ulcer of other part of left lower leg with unspecified severity; L97.819 Non-pressure chronic ulcer of other part of right lower leg with unspecified severity; I10 Essential (primary) hypertension; Z79.84 Long term (current) use of oral hypoglycemic drugs; Z79.899 Other long term (current) drug therapy; Z88.6 Allergy status to analgesic agent
CPT/HCPCS: 36415; 80048; 82962; 99283

== ENCOUNTER 2018-09-30 14:25 | Inpatient (IN) | payer MEDICARE, MEDICAID ==
[~2018-09-30] VITALS: Ht 185.4 cm; Wt 132.9 kg
[2018-09-30] MEDS ORDERED: ONDANSETRON HCL 4MG/2ML INJ IV STA (18:02)
[2018-09-30] MEDS ORDERED: METHYLPREDNISOLONE SOD SUCC 125 MG/2 ML VIAL IV STA (18:02)
[2018-09-30] MEDS ORDERED: MORPHINE SULFATE 4 MG/ML CPJ (NOT FOR IM USE) IV STA (18:02)
[2018-09-30] MEDS ORDERED: FUROSEMIDE 40MG/4ML VIAL IV ONE (18:15)
[2018-09-30] MEDS ORDERED: PIPERACILLIN/TAZ 3.375G PREMIX 50 ML IV ONE (18:15)
[2018-09-30] MEDS ORDERED: IPRATROPIUM/ALBUTEROL 0.5-3(2.5)MG/3ML NEB HHN ONE (18:15)
[2018-09-30] MEDS ORDERED: VANCOMYCIN 1 G PREMIX 200 ML IV SCH ×2 (18:15→21:45)
[2018-09-30 18:47] LABS: CLARITY URINE CLEAR (CLEAR); COLOR URINE YELLOW (YELLOW); KETONES URINE NEGATIVE (NEGATIVE); LEUKOCYTE ESTERASE URINE NEGATIVE (NEGATIVE); NITRITE URINE NEGATIVE (NEGATIVE); OCCULT BLOOD URINE NEGATIVE (NEGATIVE); PH URINE 6.5 (4.5-8.0); PROTEIN URINE 1+ (NEGATIVE); SPECIFIC GRAVITY URINE 1.019 (1.005-1.030)
[2018-09-30 18:47] LABS: BASOPHILS % 1.4 % (0.0-2.0); EOSINOPHILS % 4.5 % (0.0-5.0); HEMATOCRIT. 50.7 % (42.0-52.0); HEMOGLOBIN. 17.1 g/dL (14.0-18.0); LYMPHOCYTES % 22.3 % (20.0-50.0); MEAN CORPUSCULAR HEMOGLOBIN 29.3 pg (28.0-32.0); MEAN CORPUSCULAR VOLUME 87.2 fL (80.0-94.0); MEAN PLATELET VOLUME 9.6 fl (7.4-10.4); MONOCYTES % 7.7 % (2.0-8.0); NEUTROPHILS % 64.1 % (40.0-76.0); PLATELET 148 x1000/uL (130-400); RED BLOOD CELL COUNT 5.81 mill/uL (4.7-6.1); RED CELL DISTRIBUTION WIDTH 14.9 % (11.6-14.6)
[2018-09-30 18:55] LABS: CHLORIDE 104 mEq/L (98-107)
[2018-09-30 18:59] LABS: ETHANOL BLOOD < 10 mg/dL
[2018-09-30 19:00] LABS: INR 1.1; PARTIAL THROMBOPLASTIN TIME 28.9 sec (23.4-31.0)
[2018-09-30 19:05] LABS: *BARBITURATES SCREEN URINE NEGATIVE (NEGATIVE); *BENZODIAZEPINES SCREEN URINE PRESUMTIVE POSITIVE (NEGATIVE); METHADONE URINE SCREEN NEGATIVE (NEGATIVE)
[2018-09-30 19:06] LABS: CANNABINOID URINE SCREEN NEGATIVE (NEGATIVE); OPIATES URINE SCREEN PRESUMTIVE POSITIVE (NEGATIVE); PHENCYCLIDINE URINE SCREEN NEGATIVE (NEGATIVE)
[2018-09-30 19:08] LABS: *COCAINE SCREEN URINE NEGATIVE (NEGATIVE)
[2018-09-30 19:14] LABS: *AMPHETAMINES SCREEN URINE NEGATIVE (NEGATIVE)
[2018-09-30] MEDS ORDERED: CLONIDINE 0.1MG TABLET PO ONE (19:30)
[2018-09-30] MEDS ORDERED: ONDANSETRON HCL 4MG/2ML INJ IV PRN (21:45)
[2018-09-30] MEDS ORDERED: GUAIFENESIN 200MG/10ML SUGAR FREE UDC PO PRN (21:45)
[2018-09-30] MEDS ORDERED: IPRATROPIUM/ALBUTEROL 0.5-3(2.5)MG/3ML NEB INH PRN (21:45)
[2018-09-30] MEDS ORDERED: DOCUSATE SODIUM 100MG CAPSULE PO PRN (21:45)
[2018-09-30 22:36] VITALS: BP 135/62
[2018-09-30 23:31] LABS: CREATINE KINASE 521 IU/L (39-308)
[2018-09-30 23:35] LABS: CREATINE KINASE MB FRACTION 4.4 ng/mL (0.5-3.6)
[2018-09-30] MEDS: MORPHINE SULFATE 2 MG/ML CPJ (NOT FOR IM USE) IV PRN (23:48)
[2018-10-01 00:23] VITALS: BP 134/53
[2018-10-01] MEDS: IPRATROPIUM/ALBUTEROL 0.5-3(2.5)MG/3ML NEB INH SCH ×4 (01:18→21:28)
[2018-10-01] MEDS ORDERED: DEXTROSE 50% WATER 50ML SYRINGE IV PRN (02:30)
[2018-10-01] MEDS: PIPERACILLIN/TAZOBACTAM 3.375 G in DEXT 5% WATER 100 ML IV SCH ×3 (03:21→19:06)
[2018-10-01 04:00] VITALS: BP 102/48
[2018-10-01] MEDS ORDERED: VANCOMYCIN 750 MG PREMIX 150 ML IV SCH (06:00)
[2018-10-01 06:53] LABS: CHLORIDE 96 mEq/L (98-107)
[2018-10-01 06:54] LABS: BASOPHILS % 0.3 % (0.0-2.0); HEMATOCRIT. 48.6 % (42.0-52.0); HEMOGLOBIN. 16.6 g/dL (14.0-18.0); LYMPHOCYTES % 9.7 % (20.0-50.0); MEAN CORPUSCULAR HEMOGLOBIN 29.9 pg (28.0-32.0); MEAN CORPUSCULAR VOLUME 87.2 fL (80.0-94.0); MONOCYTES % 1.5 % (2.0-8.0); NEUTROPHILS % 88.5 % (40.0-76.0); PLATELET 135 x1000/uL (130-400); RED BLOOD CELL COUNT 5.57 mill/uL (4.7-6.1); RED CELL DISTRIBUTION WIDTH 14.8 % (11.6-14.6)
[2018-10-01 07:03] LABS: LDL CHOLESTEROL 90 mg/dL (5-100)
[2018-10-01 07:05] LABS: CREATINE KINASE 424 IU/L (39-308); HDL CHOLESTEROL 51 mg/dL (40-59)
[2018-10-01] MEDS: BLOOD SUGAR DIAGNOSTIC STRIP TEST SCH ×4 (07:05→21:34)
[2018-10-01] MEDS: INSULIN LISPRO 100 UNITS/ML SUBCUT SCH ×4 (07:19→21:51)
[2018-10-01 08:00] VITALS: BP 196/91
[2018-10-01] MEDS ORDERED: ENOXAPARIN 40MG/0.4ML SYR SUBCUT SCH (09:00)
[2018-10-01] MEDS ORDERED: ENOXAPARIN 30MG/0.3ML SYR SUBCUT SCH (09:00)
[2018-10-01] MEDS: FUROSEMIDE 40MG/4ML VIAL IV SCH (09:15)
[2018-10-01 12:00] VITALS: BP 145/75
[2018-10-01] MEDS: MORPHINE SULFATE 2 MG/ML CPJ (NOT FOR IM USE) IV PRN ×2 (12:35→19:08)
[2018-10-01] MEDS ORDERED: DIPHENHYDRAMINE 50MG/ML VIAL IV PRN (15:45)
[2018-10-01 16:00] VITALS: BP 133/52
[2018-10-01] MEDS ORDERED: INSULIN GLARGINE UD 100 UNITS/ML SYR SUBCUT NR (17:00)
[2018-10-01 20:00] VITALS: BP_SYST 108; BP_SYST 165; BP_DIAS 39; BP_DIAS 56
[2018-10-01] MEDS: BUDESONIDE 0.5MG/2ML NEB HHN SCH (21:28)
[2018-10-01] MEDS: ENOXAPARIN 40MG/0.4ML SYR SUBCUT SCH (21:34)
[2018-10-01] MEDS ORDERED: INSULIN GLARGINE UD 100 UNITS/ML SYR SUBCUT SCH (22:00)
[2018-10-01] MEDS ORDERED: VANCOMYCIN 1 G PREMIX 200 ML IV SCH ×2 (23:00)
[2018-10-02] VITALS: BP 134/62
[2018-10-02] MEDS: IPRATROPIUM/ALBUTEROL 0.5-3(2.5)MG/3ML NEB INH SCH ×3 (01:52→14:10)
[2018-10-02] MEDS: PIPERACILLIN/TAZOBACTAM 3.375 G in DEXT 5% WATER 100 ML IV SCH ×3 (02:11→20:44)
[2018-10-02 04:00] VITALS: BP 137/45
[2018-10-02] MEDS: BLOOD SUGAR DIAGNOSTIC STRIP TEST SCH ×4 (06:32→20:24)
[2018-10-02] MEDS: INSULIN LISPRO 100 UNITS/ML SUBCUT SCH ×4 (06:44→20:37)
[2018-10-02 06:54] LABS: BASOPHILS % 0.7 % (0.0-2.0); HEMATOCRIT. 47.1 % (42.0-52.0); HEMOGLOBIN. 15.8 g/dL (14.0-18.0); MEAN CORPUSCULAR HEMOGLOBIN 29.2 pg (28.0-32.0); MEAN PLATELET VOLUME 9.8 fl (7.4-10.4); MONOCYTES % 6.6 % (2.0-8.0); NEUTROPHILS % 74.7 % (40.0-76.0); PLATELET 138 x1000/uL (130-400); RED BLOOD CELL COUNT 5.41 mill/uL (4.7-6.1); RED CELL DISTRIBUTION WIDTH 14.8 % (11.6-14.6)
[2018-10-02 06:57] LABS: CHLORIDE 99 mEq/L (98-107)
[2018-10-02 07:16] LABS: CREATINE KINASE 416 IU/L (39-308)
[2018-10-02 07:19] LABS: CREATINE KINASE MB FRACTION 4.4 ng/mL (0.5-3.6)
[2018-10-02 08:00] VITALS: BP 129/65
[2018-10-02] MEDS: ENOXAPARIN 40MG/0.4ML SYR SUBCUT SCH ×2 (08:42→20:16)
[2018-10-02] MEDS: FUROSEMIDE 40MG/4ML VIAL IV SCH (08:42)
[2018-10-02] MEDS: MORPHINE SULFATE 2 MG/ML CPJ (NOT FOR IM USE) IV PRN ×2 (08:47→21:32)
[2018-10-02] MEDS ORDERED: INSULIN GLARGINE UD 100 UNITS/ML SYR SUBCUT NR (11:30)
[2018-10-02 12:00] VITALS: BP 118/77
[2018-10-02] MEDS ORDERED: NITROGLYCERIN 0.4MG TABLET SL SL PRN (12:45)
[2018-10-02] MEDS: BUDESONIDE 0.5MG/2ML NEB HHN SCH ×2 (14:10→22:05)
[2018-10-02] MEDS: METHYLPREDNISOLONE SOD SUCC 40 MG/ML VIAL IV SCH (14:51)
[2018-10-02 16:00] VITALS: BP 127/60
[2018-10-02] MEDS: VANCOMYCIN 1 G PREMIX 200 ML IV SCH (18:17)
[2018-10-02 20:00] VITALS: BP 140/52
[2018-10-02] MEDS: INSULIN GLARGINE UD 100 UNITS/ML SYR SUBCUT SCH (22:00)
[2018-10-02] MEDS: IPRATROPIUM/ALBUTEROL 0.5-3(2.5)MG/3ML NEB HHN SCH (22:06)
[2018-10-03] VITALS: BP 136/45
[2018-10-03] MEDS: IPRATROPIUM/ALBUTEROL 0.5-3(2.5)MG/3ML NEB HHN SCH ×4 (03:00→19:55)
[2018-10-03] MEDS: PIPERACILLIN/TAZOBACTAM 3.375 G in DEXT 5% WATER 100 ML IV SCH ×3 (03:17→20:23)
[2018-10-03 04:00] VITALS: BP 174/63
[2018-10-03] MEDS: MORPHINE SULFATE 2 MG/ML CPJ (NOT FOR IM USE) IV PRN ×2 (05:49→20:24)
[2018-10-03] MEDS: VANCOMYCIN 1 G PREMIX 200 ML IV SCH ×2 (06:02→17:00)
[2018-10-03] MEDS: BLOOD SUGAR DIAGNOSTIC STRIP TEST SCH ×4 (06:04→20:32)
[2018-10-03] MEDS: CLONIDINE 0.1MG TABLET PO PRN (06:04)
[2018-10-03] MEDS: INSULIN LISPRO 100 UNITS/ML SUBCUT SCH ×4 (07:23→20:44)
[2018-10-03 08:11] LABS: HEMATOCRIT 50.6 % (42.0-52.0); HEMOGLOBIN 16.8 g/dL (14.0-18.0); MEAN CORPUSCULAR VOLUME 87.3 fL (80.0-94.0); PLATELET 148 x1000/uL (130-400); RED CELL DISTRIBUTION WIDTH 14.8 % (11.6-14.6)
[2018-10-03 08:34] LABS: CHLORIDE 97 mEq/L (98-107)
[2018-10-03] MEDS: METHYLPREDNISOLONE SOD SUCC 40 MG/ML VIAL IV SCH (09:25)
[2018-10-03] MEDS: FUROSEMIDE 40MG/4ML VIAL IV SCH (09:25)
[2018-10-03] MEDS: ENOXAPARIN 40MG/0.4ML SYR SUBCUT SCH (09:26)
[2018-10-03] MEDS: INSULIN GLARGINE UD 100 UNITS/ML SYR SUBCUT SCH ×2 (09:27→21:51)
[2018-10-03] MEDS: BUDESONIDE 0.5MG/2ML NEB HHN SCH ×2 (09:45→19:55)
[2018-10-03 20:00] VITALS: BP 152/64
[2018-10-03] MEDS: FAMOTIDINE 20MG TABLET PO SCH (20:23)
[2018-10-03] MEDS: ENOXAPARIN 30MG/0.3ML SYR SUBCUT SCH (20:23)
[2018-10-03] MEDS ORDERED: OXYC30TA86 MT (20:44)
[2018-10-03] MEDS ORDERED: LISI-604 MT (20:44)
[2018-10-04] VITALS (7 sets, daily range): BP systolic 123–163; BP diastolic 55–77
[2018-10-04] MEDS: IPRATROPIUM/ALBUTEROL 0.5-3(2.5)MG/3ML NEB HHN SCH ×3 (01:53→20:45)
[2018-10-04] MEDS: PIPERACILLIN/TAZOBACTAM 3.375 G in DEXT 5% WATER 100 ML IV SCH ×3 (03:04→20:48)
[2018-10-04] MEDS: VANCOMYCIN 1 G PREMIX 200 ML IV SCH ×2 (05:10→17:46)
[2018-10-04] MEDS: BLOOD SUGAR DIAGNOSTIC STRIP TEST SCH ×4 (06:01→20:48)
[2018-10-04 06:20] LABS: HEMATOCRIT 49.2 % (42.0-52.0); HEMOGLOBIN 16.4 g/dL (14.0-18.0); MEAN CORPUSCULAR HEMOGLOBIN 29.2 pg (28.0-32.0); MEAN CORPUSCULAR VOLUME 87.5 fL (80.0-94.0); PLATELET 145 x1000/uL (130-400); RED BLOOD CELL COUNT 5.63 mill/uL (4.7-6.1); RED CELL DISTRIBUTION WIDTH 14.7 % (11.6-14.6)
[2018-10-04] MEDS: CLONIDINE 0.1MG TABLET PO PRN (06:25)
[2018-10-04] MEDS: INSULIN LISPRO 100 UNITS/ML SUBCUT SCH ×4 (06:28→20:49)
[2018-10-04 06:47] LABS: CHLORIDE 96 mEq/L (98-107)
[2018-10-04 06:56] LABS: VANCOMYCIN TROUGH 44.3 ug/mL (5.0-10.0)
[2018-10-04] MEDS: BUDESONIDE 0.5MG/2ML NEB HHN SCH ×2 (08:15→20:45)
[2018-10-04] MEDS: METHYLPREDNISOLONE SOD SUCC 40 MG/ML VIAL IV SCH (09:43)
[2018-10-04] MEDS: FUROSEMIDE 40MG/4ML VIAL IV SCH (09:43)
[2018-10-04] MEDS: FAMOTIDINE 20MG TABLET PO SCH ×2 (09:43→20:47)
[2018-10-04] MEDS: ENOXAPARIN 30MG/0.3ML SYR SUBCUT SCH ×2 (09:44→20:47)
[2018-10-04] MEDS: INSULIN GLARGINE UD 100 UNITS/ML SYR SUBCUT SCH ×2 (09:46→21:49)
[2018-10-04] MEDS: MORPHINE SULFATE 2 MG/ML CPJ (NOT FOR IM USE) IV PRN (23:08)
[2018-10-05] VITALS: BP_SYST 122; BP_SYST 131; BP_DIAS 51; BP_DIAS 57
[2018-10-05] MEDS: PIPERACILLIN/TAZOBACTAM 3.375 G in DEXT 5% WATER 100 ML IV SCH ×3 (03:42→18:03)
[2018-10-05 04:00] VITALS: BP 129/54
[2018-10-05 05:05] LABS: CHLORIDE 95 mEq/L (98-107)
[2018-10-05 05:12] LABS: VANCOMYCIN TROUGH 15.8 ug/mL (5.0-10.0)
[2018-10-05] MEDS: VANCOMYCIN 1 G PREMIX 200 ML IV SCH (05:38)
[2018-10-05] MEDS: BLOOD SUGAR DIAGNOSTIC STRIP TEST SCH ×2 (06:33→12:10)
[2018-10-05] MEDS: INSULIN LISPRO 100 UNITS/ML SUBCUT SCH ×3 (06:34→17:15)
[2018-10-05 08:00] VITALS: BP 149/57
[2018-10-05] MEDS: ENOXAPARIN 30MG/0.3ML SYR SUBCUT SCH (09:25)
[2018-10-05] MEDS: FUROSEMIDE 40MG/4ML VIAL IV SCH (09:25)
[2018-10-05] MEDS: METHYLPREDNISOLONE SOD SUCC 40 MG/ML VIAL IV SCH (09:25)
[2018-10-05] MEDS: FAMOTIDINE 20MG TABLET PO SCH (09:25)
[2018-10-05] MEDS: MORPHINE SULFATE 2 MG/ML CPJ (NOT FOR IM USE) IV PRN (09:37)
[2018-10-05] MEDS: IPRATROPIUM/ALBUTEROL 0.5-3(2.5)MG/3ML NEB HHN SCH ×3 (09:44→15:15)
[2018-10-05] MEDS: INSULIN GLARGINE UD 100 UNITS/ML SYR SUBCUT SCH (10:48)
[2018-10-05 12:00] VITALS: BP 151/74
[2018-10-05] MEDS ORDERED: HYDROCODONE/ACETAMINOPHEN 5/325MG TABLET PO PRN (12:00)
[2018-10-05 15:02] VITALS: BP 151/74
== END 2018-10-05 20:30 | disposition home or self-care (01) | DRG 291 ==
LOC: ER 14:25 → 5WST 19:55 → EDBEDREQ 19:59 → EDBEDREQTM 19:59 → ENRESERV 20:40 → CANRESERV 20:42 → ENRESERV 20:42
PROVIDERS: ADMIT Internal Medicine; ATTEND Internal Medicine
DX: I13.0 Hypertensive heart and chronic kidney disease with heart failure and stage 1 through stage 4 chronic kidney disease, or unspecified chronic kidney disease (principal); I50.33 Acute on chronic diastolic (congestive) heart failure; J44.1 Chronic obstructive pulmonary disease with (acute) exacerbation; E66.2 Morbid (severe) obesity with alveolar hypoventilation; N17.9 Acute kidney failure, unspecified; M62.82 Rhabdomyolysis; N39.0 Urinary tract infection, site not specified; Z96.653 Presence of artificial knee joint, bilateral; K21.9 Gastro-esophageal reflux disease without esophagitis; R07.1 Chest pain on breathing; L97.529 Non-pressure chronic ulcer of other part of left foot with unspecified severity; L97.519 Non-pressure chronic ulcer of other part of right foot with unspecified severity; E11.621 Type 2 diabetes mellitus with foot ulcer; E11.65 Type 2 diabetes mellitus with hyperglycemia; R74.0 Nonspecific elevation of levels of transaminase and lactic acid dehydrogenase [LDH]; E78.5 Hyperlipidemia, unspecified; M10.9 Gout, unspecified; D72.829 Elevated white blood cell count, unspecified; E11.22 Type 2 diabetes mellitus with diabetic chronic kidney disease; M19.90 Unspecified osteoarthritis, unspecified site; N18.9 Chronic kidney disease, unspecified; Z82.49 Family history of ischemic heart disease and other diseases of the circulatory system; Z90.89 Acquired absence of other organs; Z87.891 Personal history of nicotine dependence; Z88.6 Allergy status to analgesic agent; Z88.1 Allergy status to other antibiotic agents; Z91.048 Other nonmedicinal substance allergy status; Z79.899 Other long term (current) drug therapy; Z79.84 Long term (current) use of oral hypoglycemic drugs; Z68.38 Body mass index [BMI] 38.0-38.9, adult; Z71.3 Dietary counseling and surveillance; Z99.81 Dependence on supplemental oxygen
CPT/HCPCS: 36415; 71045; 80048; 80061; 80202; 80305; 80320; 81003; 82550; 82553; 82962; 83036; 83605; 83735; 83880; 84484; 84550; 85027; 93005; 93306; 93970; 94640; 96374; 97110; 97162; 99285; J1650; J1815; J1940; J2270; J2405; J2543; J2920; J2930; J3370; J7060; J7620; J7626; G0480

== ENCOUNTER 2018-11-07 10:39 | Inpatient (IN) | payer MEDICARE, MEDICAID ==
[~2018-11-07] VITALS: Ht 180.3 cm; Wt 132.4 kg
[~2018-11-07 10:39] MED LIST changes: -ASCO-316 PO; -HYDR-519 PO; +LISI-604 MT; -OMEP20CA4 PO; +OXYC30TA86 MT; -[UNRECOGNIZED DRUG - CODE] PO
[2018-11-07] MEDS ORDERED: FUROSEMIDE 40MG/4ML VIAL IV ONE (11:15)
[2018-11-07] MEDS ORDERED: NITROGLYCERIN OINT 1GM/INCH UDPKT TD ONE (11:15)
[2018-11-07] MEDS ORDERED: CLOPIDOGREL 75MG TABLET PO ONE (11:15)
[2018-11-07] MEDS ORDERED: ONDANSETRON HCL 4MG/2ML INJ IV STA ×2 (13:22→17:06)
[2018-11-07] MEDS ORDERED: MORPHINE SULFATE 4 MG/ML CPJ (NOT FOR IM USE) IV STA ×2 (13:22→17:06)
[2018-11-07 14:28] LABS: BASOPHILS % 0.8 % (0.0-2.0); EOSINOPHILS % 4.1 % (0.0-5.0); HEMATOCRIT. 50.2 % (42.0-52.0); HEMOGLOBIN. 16.7 g/dL (14.0-18.0); LYMPHOCYTES % 14.8 % (20.0-50.0); MEAN CORPUSCULAR VOLUME 87.1 fL (80.0-94.0); MEAN PLATELET VOLUME 8.9 fl (7.4-10.4); MONOCYTES % 10.7 % (2.0-8.0); NEUTROPHILS % 69.6 % (40.0-76.0); PLATELET 172 x1000/uL (130-400); RED BLOOD CELL COUNT 5.76 mill/uL (4.7-6.1)
[2018-11-07] MEDS ORDERED: SODIUM BICARBONATE 4% (2.4MEQ) 5ML VIAL IV ONE (14:33)
[2018-11-07] MEDS ORDERED: LIDOCAINE HCL 1% 20ML VIAL (Pyxis) INJ ONE (14:34)
[2018-11-07 14:37] LABS: CHLORIDE 99 mEq/L (98-107)
[2018-11-07 14:38] LABS: D-DIMER 1.44 mg/L FEU (<0.50); INR 1.1; PROTHROMBIN TIME 11.1 sec (9.6-11.0)
[2018-11-07] MEDS ORDERED: DOCUSATE SODIUM 100MG CAPSULE PO PRN (18:45)
[2018-11-07] MEDS ORDERED: ONDANSETRON HCL 4MG/2ML INJ IV PRN (18:45)
[2018-11-07] MEDS ORDERED: DIPHENHYDRAMINE 50MG/ML VIAL IV PRN (18:45)
[2018-11-07] MEDS ORDERED: MAGNESIUM/ALUMINUM HYDROXIDE/SIMETHICONE 30ML UDC PO PRN (18:45)
[2018-11-07] MEDS ORDERED: ACETAMINOPHEN 325MG TABLET PO PRN (18:45)
[2018-11-07] MEDS ORDERED: NA PHOS,M-B/NA PHOS,DI-BA ENEMA 118ML PR PRN (18:45)
[2018-11-07] MEDS ORDERED: IPRATROPIUM/ALBUTEROL 0.5-3(2.5)MG/3ML NEB NEB PRN (18:45)
[2018-11-07] MEDS ORDERED: LORAZEPAM 0.5MG TABLET PO PRN (18:45)
[2018-11-07] MEDS ORDERED: ACETAMINOPHEN 650MG SUPP PR PRN (18:45)
[2018-11-07] MEDS ORDERED: GUAIFENESIN 200MG/10ML SUGAR FREE UDC PO PRN (18:45)
[2018-11-07] MEDS ORDERED: DEXTROSE 50% WATER 50ML SYRINGE IV PRN (18:45)
[2018-11-07] MEDS ORDERED: CLONIDINE 0.1MG TABLET PO PRN (18:45)
[2018-11-07] MEDS ORDERED: MORPHINE SULFATE 2 MG/ML CPJ (NOT FOR IM USE) IV PRN (18:45)
[2018-11-08] VITALS: BP 158/66
[2018-11-08] MEDS: LISINOPRIL 20MG TABLET PO SCH ×2 (00:46→09:45)
[2018-11-08] MEDS: METHYLPREDNISOLONE SOD SUCC 40 MG/ML VIAL IV SCH ×4 (00:46→21:48)
[2018-11-08] MEDS: INSULIN LISPRO 100 UNITS/ML SUBCUT SCH ×5 (00:47→21:17)
[2018-11-08] MEDS: IPRATROPIUM/ALBUTEROL 0.5-3(2.5)MG/3ML NEB NEB SCH ×4 (02:29→20:52)
[2018-11-08 04:00] VITALS: BP 148/56
[2018-11-08] MEDS: BLOOD SUGAR DIAGNOSTIC STRIP TEST SCH ×5 (06:39→21:00)
[2018-11-08 06:47] LABS: BASOPHILS % 0.5 % (0.0-2.0); EOSINOPHILS % 0.5 % (0.0-5.0); HEMATOCRIT. 45.8 % (42.0-52.0); HEMOGLOBIN. 15.2 g/dL (14.0-18.0); LYMPHOCYTES % 11.5 % (20.0-50.0); MEAN CORPUSCULAR HEMOGLOBIN 29.2 pg (28.0-32.0); MEAN CORPUSCULAR VOLUME 88.2 fL (80.0-94.0); MEAN PLATELET VOLUME 9.5 fl (7.4-10.4); NEUTROPHILS % 84.5 % (40.0-76.0); PLATELET 139 x1000/uL (130-400); RED CELL DISTRIBUTION WIDTH 15.3 % (11.6-14.6)
[2018-11-08 07:11] LABS: CHLORIDE 98 mEq/L (98-107)
[2018-11-08 07:23] LABS: CREATINE KINASE 502 IU/L (39-308)
[2018-11-08 07:26] LABS: CREATINE KINASE MB FRACTION 2.6 ng/mL (0.5-3.6)
[2018-11-08 08:00] VITALS: BP 167/75
[2018-11-08] MEDS: ALLOPURINOL 300 MG TABLET PO SCH (09:45)
[2018-11-08] MEDS: FUROSEMIDE 40MG/4ML VIAL IV SCH ×2 (09:46→21:05)
[2018-11-08 12:00] VITALS: BP 150/80
[2018-11-08 14:47] LABS: BG CARBOXYHEMOGLOBIN 1.4 % (0.5-1.5); BG DEOXYHEMOGLOBIN 7.1 % (0.0-5.0); BG FRACTION INSPIRED OXYGEN 21; BG HCO3 ACT 31.9 mmol/L (22.0-26.0); BG METHEMOGLOBIN 0.4 % (0.0-1.5); BG OXYGEN SATURATION 92.8 % (92.0-98.5); BG OXYHEMOGLOBIN 91.1 % (94.0-97.0); BG PCO2 50.6 mmHg (35.0-45.0); BG PH 7.418 (7.350-7.450); BG PO2 63.4 mmHg (75.0-100.0); BG SAMPLE SITE RIGHT RADIAL; BG VENT MODE ROOM AIR
[2018-11-08] MEDS ORDERED: OMEPRAZOLE 20MG CAPSULE EXTENDED RELEASE PO SCH (15:20)
[2018-11-08 16:00] VITALS: BP 140/70
[2018-11-08] MEDS ORDERED: OMEP20CA5 PO (17:17)
[2018-11-08] MEDS ORDERED: TRAMADOL 50MG TABLET PO PRN (17:30)
[2018-11-08 20:00] VITALS: BP 135/50
[2018-11-08] MEDS: HYDROCODONE/ACETAMINOPHEN 5/325MG TABLET PO PRN (21:12)
[2018-11-09] VITALS: BP 125/53
[2018-11-09] MEDS: HYDROCODONE/ACETAMINOPHEN 5/325MG TABLET PO PRN ×2 (03:22→15:29)
[2018-11-09 04:00] VITALS: BP 137/65
[2018-11-09] MEDS: METHYLPREDNISOLONE SOD SUCC 40 MG/ML VIAL IV SCH ×2 (05:38→13:05)
[2018-11-09] MEDS: BLOOD SUGAR DIAGNOSTIC STRIP TEST SCH ×3 (06:35→17:45)
[2018-11-09] MEDS ORDERED: OMEPRAZOLE 20MG CAPSULE EXTENDED RELEASE PO SCH (07:20)
[2018-11-09] MEDS: LISINOPRIL 20MG TABLET PO SCH (08:21)
[2018-11-09] MEDS: IPRATROPIUM/ALBUTEROL 0.5-3(2.5)MG/3ML NEB NEB SCH ×3 (08:21→14:45)
[2018-11-09] MEDS: ALLOPURINOL 300 MG TABLET PO SCH (08:21)
[2018-11-09] MEDS: FUROSEMIDE 40MG/4ML VIAL IV SCH (08:21)
[2018-11-09 08:26] VITALS: BP 127/63
[2018-11-09] MEDS: INSULIN LISPRO 100 UNITS/ML SUBCUT SCH ×2 (08:37→12:00)
[2018-11-09] MEDS ORDERED: INSULIN LISPRO 100 UNITS/ML SUBCUT NR (12:00)
[2018-11-09 12:24] VITALS: BP 132/52
[2018-11-09 16:18] VITALS: BP 133/65
[2018-11-09 17:11] VITALS: BP 133/65
[2018-11-09] MEDS ORDERED: INSULIN LISPRO 100 UNITS/ML SUBCUT SCH (17:50)
[2018-11-09] MEDS ORDERED: INSULIN GLARGINE UD 100 UNITS/ML SYR SUBCUT SCH (22:00)
== END 2018-11-09 20:54 | disposition home or self-care (01) | DRG 291 ==
LOC: ER 10:39 → 6WST 16:21 → ENRESERV 20:46
PROVIDERS: ADMIT Internal Medicine; ATTEND Internal Medicine
PROC: 02HV33Z Insertion of Infusion Device into Superior Vena Cava, Percutaneous Approach (ICD-10-PCS; principal; 2018-11-07)
PROC: B5181ZA Fluoroscopy of Superior Vena Cava using Low Osmolar Contrast, Guidance (ICD-10-PCS; 2018-11-07)
PROC: B548ZZA Ultrasonography of Superior Vena Cava, Guidance (ICD-10-PCS; 2018-11-07)
DX: I13.0 Hypertensive heart and chronic kidney disease with heart failure and stage 1 through stage 4 chronic kidney disease, or unspecified chronic kidney disease (principal); I50.43 Acute on chronic combined systolic (congestive) and diastolic (congestive) heart failure; J18.9 Pneumonia, unspecified organism; E66.2 Morbid (severe) obesity with alveolar hypoventilation; F11.20 Opioid dependence, uncomplicated; J44.0 Chronic obstructive pulmonary disease with (acute) lower respiratory infection; Z68.41 Body mass index [BMI] 40.0-44.9, adult; E11.22 Type 2 diabetes mellitus with diabetic chronic kidney disease; E11.621 Type 2 diabetes mellitus with foot ulcer; E78.5 Hyperlipidemia, unspecified; R74.0 Nonspecific elevation of levels of transaminase and lactic acid dehydrogenase [LDH]; G89.29 Other chronic pain; L97.509 Non-pressure chronic ulcer of other part of unspecified foot with unspecified severity; M10.9 Gout, unspecified; M54.9 Dorsalgia, unspecified; I34.0 Nonrheumatic mitral (valve) insufficiency; M19.90 Unspecified osteoarthritis, unspecified site; N18.9 Chronic kidney disease, unspecified; Z82.49 Family history of ischemic heart disease and other diseases of the circulatory system; Z90.89 Acquired absence of other organs; Z91.19 Patient's noncompliance with other medical treatment and regimen; Z88.6 Allergy status to analgesic agent; Z88.8 Allergy status to other drugs, medicaments and biological substances; Z79.899 Other long term (current) drug therapy; Z79.84 Long term (current) use of oral hypoglycemic drugs
CPT/HCPCS: 36415; 36573; 36600; 71045; 76700; 78582; 82375; 82550; 82553; 82805; 82962; 83880; 84132; 84484; 85379; 87077; 93005; 93970; 94640; 96374; 97161; 99285; A9558; C1725; J1815; J1940; J2270; J2405; J2920; J3490; J7620

== ENCOUNTER 2018-11-10 08:36 | Inpatient (IN) | payer MEDICARE, MEDICAID ==
[~2018-11-10] VITALS: Ht 180.3 cm; Wt 129.3 kg
[~2018-11-10 08:36] MED LIST changes: +OMEP20CA5 PO
[2018-11-10] MEDS ORDERED: IPRATROPIUM BROMIDE (0.02%) 0.5MG/2.5ML NEB HHN STA (08:40)
[2018-11-10] MEDS ORDERED: METHYLPREDNISOLONE SOD SUCC 125 MG/2 ML VIAL IV STA (08:40)
[2018-11-10] MEDS ORDERED: MAGNESIUM 2 G PREMIX 50 ML IV ONE (08:45)
[2018-11-10] MEDS: ALBUTEROL (0.083%) 2.5MG/3ML NEB HHN SCH ×3 (09:00→10:00)
[2018-11-10 09:17] LABS: BASOPHILS % 0.5 % (0.0-2.0); EOSINOPHILS % 0.1 % (0.0-5.0); HEMATOCRIT. 49.1 % (42.0-52.0); HEMOGLOBIN. 16.3 g/dL (14.0-18.0); LYMPHOCYTES % 10.9 % (20.0-50.0); MEAN CORPUSCULAR VOLUME 87.6 fL (80.0-94.0); MEAN PLATELET VOLUME 9.6 fl (7.4-10.4); MONOCYTES % 5.9 % (2.0-8.0); NEUTROPHILS % 82.6 % (40.0-76.0); PLATELET 174 x1000/uL (130-400); RED CELL DISTRIBUTION WIDTH 15.5 % (11.6-14.6)
[2018-11-10 09:20] LABS: CHLORIDE 96 mEq/L (98-107)
[2018-11-10] MEDS ORDERED: DEXTROSE 50% WATER 50ML SYRINGE IV PRN (12:15)
[2018-11-10] MEDS ORDERED: ONDANSETRON HCL 4MG/2ML INJ IV PRN (12:15)
[2018-11-10] MEDS ORDERED: ACETAMINOPHEN 325MG TABLET PO PRN (12:15)
[2018-11-10] MEDS: INSULIN LISPRO 100 UNITS/ML SUBCUT SCH ×3 (12:16→22:11)
[2018-11-10] MEDS ORDERED: IPRATROPIUM/ALBUTEROL 0.5-3(2.5)MG/3ML NEB HHN PRN (12:30)
[2018-11-10] MEDS ORDERED: BLOOD SUGAR DIAGNOSTIC STRIP TEST SCH (13:00)
[2018-11-10] MEDS ORDERED: METHYLPREDNISOLONE SOD SUCC 125 MG/2 ML VIAL IV SCH (14:00)
[2018-11-10 15:30] VITALS: BP 137/62
[2018-11-10 16:00] VITALS: BP 142/66
[2018-11-10] MEDS: BLOOD SUGAR DIAGNOSTIC STRIP TEST SCH ×2 (17:20→21:40)
[2018-11-10] MEDS: METHYLPREDNISOLONE SOD SUCC 125 MG/2 ML VIAL IV SCH ×2 (18:19→22:14)
[2018-11-10] MEDS: MONTELUKAST SODIUM 10MG TABLET PO SCH (18:19)
[2018-11-10 20:00] VITALS: BP 163/74
[2018-11-10] MEDS: IPRATROPIUM/ALBUTEROL 0.5-3(2.5)MG/3ML NEB HHN SCH (21:03)
[2018-11-10] MEDS ORDERED: INSULIN GLARGINE UD 100 UNITS/ML SYR SUBCUT SCH (22:00)
[2018-11-10] MEDS: ENOXAPARIN 30MG/0.3ML SYR SUBCUT SCH (22:13)
[2018-11-10] MEDS: CLONIDINE 0.1MG TABLET PO PRN (22:14)
[2018-11-10] MEDS: BENZONATATE 100MG CAPSULE PO PRN (22:15)
[2018-11-10] MEDS: INSULIN GLARGINE UD 100 UNITS/ML SYR SUBCUT SCH (23:22)
[2018-11-11] VITALS: BP 141/56
[2018-11-11] MEDS: IPRATROPIUM/ALBUTEROL 0.5-3(2.5)MG/3ML NEB HHN SCH ×8 (00:53→23:25)
[2018-11-11] MEDS: HYDROCODONE/ACETAMINOPHEN 5/325MG TABLET PO PRN ×3 (01:28→23:31)
[2018-11-11 02:23] LABS: CLARITY URINE CLEAR (CLEAR); COLOR URINE YELLOW (YELLOW); KETONES URINE NEGATIVE (NEGATIVE); LEUKOCYTE ESTERASE URINE NEGATIVE (NEGATIVE); NITRITE URINE NEGATIVE (NEGATIVE); OCCULT BLOOD URINE NEGATIVE (NEGATIVE); PH URINE 6.5 (4.5-8.0); PROTEIN URINE NEGATIVE (NEGATIVE); SPECIFIC GRAVITY URINE 1.019 (1.005-1.030); UROBILINOGEN URINE 0.2 E.U./dL (0.2-1.0)
[2018-11-11 02:35] LABS: *AMPHETAMINES SCREEN URINE NEGATIVE (NEGATIVE); *BARBITURATES SCREEN URINE NEGATIVE (NEGATIVE); CANNABINOID URINE SCREEN NEGATIVE (NEGATIVE); PHENCYCLIDINE URINE SCREEN NEGATIVE (NEGATIVE)
[2018-11-11 02:36] LABS: *BENZODIAZEPINES SCREEN URINE NEGATIVE (NEGATIVE); *COCAINE SCREEN URINE NEGATIVE (NEGATIVE); METHADONE URINE SCREEN NEGATIVE (NEGATIVE); OPIATES URINE SCREEN PRESUMTIVE POSITIVE (NEGATIVE)
[2018-11-11 04:00] VITALS: BP 140/62
[2018-11-11] MEDS: BLOOD SUGAR DIAGNOSTIC STRIP TEST SCH ×4 (06:36→21:37)
[2018-11-11] MEDS: METHYLPREDNISOLONE SOD SUCC 125 MG/2 ML VIAL IV SCH ×2 (06:36→13:47)
[2018-11-11] MEDS: INSULIN LISPRO 100 UNITS/ML SUBCUT SCH ×4 (07:08→21:37)
[2018-11-11 08:00] VITALS: BP 166/82
[2018-11-11] MEDS: ENOXAPARIN 30MG/0.3ML SYR SUBCUT SCH ×2 (09:13→21:17)
[2018-11-11] MEDS: BENZONATATE 100MG CAPSULE PO PRN (09:37)
[2018-11-11] MEDS ORDERED: LISINOPRIL 20MG TABLET PO NR (10:45)
[2018-11-11] MEDS: INSULIN GLARGINE UD 100 UNITS/ML SYR SUBCUT SCH ×2 (11:06→21:36)
[2018-11-11 11:54] LABS: HEMATOCRIT. 46.7 % (42.0-52.0); HEMOGLOBIN. 15.5 g/dL (14.0-18.0); MEAN CORPUSCULAR HEMOGLOBIN 29.1 pg (28.0-32.0); MEAN CORPUSCULAR VOLUME 87.8 fL (80.0-94.0); MEAN PLATELET VOLUME 9.6 fl (7.4-10.4); PLATELET 161 x1000/uL (130-400); RED BLOOD CELL COUNT 5.32 mill/uL (4.7-6.1); RED CELL DISTRIBUTION WIDTH 14.7 % (11.6-14.6)
[2018-11-11 12:00] VITALS: BP 154/68
[2018-11-11 12:24] LABS: CHLORIDE 94 mEq/L (98-107)
[2018-11-11 14:00] LABS: PLATELET ESTIMATE NORMAL
[2018-11-11] MEDS ORDERED: PIPERACILLIN/TAZOBACTAM 2.25 G in DEXTROSE 5% WATER 50 ML IV SCH (15:30)
[2018-11-11 16:00] VITALS: BP 186/81
[2018-11-11] MEDS: METFORMIN HCL 500MG TABLET PO SCH (18:16)
[2018-11-11] MEDS: MONTELUKAST SODIUM 10MG TABLET PO SCH (18:17)
[2018-11-11] MEDS: PIPERACILLIN SODIUM/TAZOBACTAM 4.5 G in DEXT 5% WATER 100 ML IV SCH ×2 (18:18→23:32)
[2018-11-11 20:00] VITALS: BP 185/68
[2018-11-11] MEDS: METHYLPREDNISOLONE SOD SUCC 40 MG/ML VIAL IV SCH (21:17)
[2018-11-12] VITALS (7 sets, daily range): BP systolic 136–186; BP diastolic 55–69
[2018-11-12] MEDS: IPRATROPIUM/ALBUTEROL 0.5-3(2.5)MG/3ML NEB HHN SCH ×5 (03:48→20:57)
[2018-11-12] MEDS: METHYLPREDNISOLONE SOD SUCC 40 MG/ML VIAL IV SCH ×2 (06:38→21:52)
[2018-11-12] MEDS: PIPERACILLIN SODIUM/TAZOBACTAM 4.5 G in DEXT 5% WATER 100 ML IV SCH ×3 (06:38→18:47)
[2018-11-12] MEDS: OMEPRAZOLE 20MG CAPSULE EXTENDED RELEASE PO SCH (06:38)
[2018-11-12] MEDS: BLOOD SUGAR DIAGNOSTIC STRIP TEST SCH ×4 (06:38→21:52)
[2018-11-12 06:54] LABS: HEMATOCRIT 45.1 % (42.0-52.0); MEAN CORPUSCULAR HEMOGLOBIN 29.2 pg (28.0-32.0); MEAN CORPUSCULAR VOLUME 87.5 fL (80.0-94.0); PLATELET 146 x1000/uL (130-400); RED BLOOD CELL COUNT 5.16 mill/uL (4.7-6.1)
[2018-11-12] MEDS: HYDROCODONE/ACETAMINOPHEN 5/325MG TABLET PO PRN ×2 (07:02→13:24)
[2018-11-12 07:08] LABS: CHLORIDE 97 mEq/L (98-107)
[2018-11-12] MEDS: ENOXAPARIN 30MG/0.3ML SYR SUBCUT SCH ×2 (08:41→21:51)
[2018-11-12] MEDS: ALLOPURINOL 300 MG TABLET PO SCH (08:41)
[2018-11-12] MEDS: METFORMIN HCL 500MG TABLET PO SCH ×2 (08:42→18:46)
[2018-11-12] MEDS: BENZONATATE 100MG CAPSULE PO PRN (08:42)
[2018-11-12] MEDS: LISINOPRIL 20MG TABLET PO SCH (08:42)
[2018-11-12] MEDS: INSULIN LISPRO 100 UNITS/ML SUBCUT SCH ×4 (08:43→22:13)
[2018-11-12] MEDS: INSULIN GLARGINE UD 100 UNITS/ML SYR SUBCUT SCH ×2 (11:01→22:12)
[2018-11-12] MEDS ORDERED: INSULIN LISPRO 100 UNITS/ML SUBCUT NR (11:15)
[2018-11-12] MEDS: MONTELUKAST SODIUM 10MG TABLET PO SCH (18:46)
[2018-11-12] MEDS: SODIUM CHLORIDE 45ML SPRAY NS PRN (18:46)
[2018-11-13] VITALS: BP 158/80
[2018-11-13] MEDS: SODIUM CHLORIDE 45ML SPRAY NS PRN ×3 (01:05→15:28)
[2018-11-13] MEDS: PIPERACILLIN SODIUM/TAZOBACTAM 4.5 G in DEXT 5% WATER 100 ML IV SCH ×4 (01:06→18:32)
[2018-11-13] MEDS: IPRATROPIUM/ALBUTEROL 0.5-3(2.5)MG/3ML NEB HHN SCH ×6 (01:23→21:23)
[2018-11-13] MEDS: HYDROCODONE/ACETAMINOPHEN 5/325MG TABLET PO PRN ×3 (01:44→20:56)
[2018-11-13 04:00] VITALS: BP 155/79
[2018-11-13] MEDS: OMEPRAZOLE 20MG CAPSULE EXTENDED RELEASE PO SCH (06:52)
[2018-11-13] MEDS: BLOOD SUGAR DIAGNOSTIC STRIP TEST SCH ×4 (06:53→20:56)
[2018-11-13] MEDS: METFORMIN HCL 500MG TABLET PO SCH ×2 (08:20→18:32)
[2018-11-13] MEDS: ALLOPURINOL 300 MG TABLET PO SCH (08:20)
[2018-11-13] MEDS: ENOXAPARIN 30MG/0.3ML SYR SUBCUT SCH ×2 (08:21→20:56)
[2018-11-13] MEDS: INSULIN LISPRO 100 UNITS/ML SUBCUT SCH ×4 (08:24→21:35)
[2018-11-13] MEDS: LISINOPRIL 20MG TABLET PO SCH (08:25)
[2018-11-13] MEDS: METHYLPREDNISOLONE SOD SUCC 40 MG/ML VIAL IV SCH (10:00)
[2018-11-13 12:00] VITALS: BP 164/73
[2018-11-13] MEDS: INSULIN GLARGINE UD 100 UNITS/ML SYR SUBCUT SCH ×2 (14:03→21:36)
[2018-11-13] MEDS: CLONIDINE 0.1MG TABLET PO PRN (15:43)
[2018-11-13 16:00] VITALS: BP 129/81
[2018-11-13] MEDS ORDERED: METHYLPREDNISOLONE SOD SUCC 40 MG/ML VIAL IV SCH (18:00)
[2018-11-13] MEDS: MONTELUKAST SODIUM 10MG TABLET PO SCH (18:32)
[2018-11-13 20:00] VITALS: BP 141/56
[2018-11-13] MEDS: SODIUM CHLORIDE 0.9% INJ 3ML FLUSH IVF SCH (21:39)
[2018-11-14] VITALS: BP 187/74
[2018-11-14] MEDS: PIPERACILLIN SODIUM/TAZOBACTAM 4.5 G in DEXT 5% WATER 100 ML IV SCH ×4 (00:45→18:34)
[2018-11-14] MEDS: IPRATROPIUM/ALBUTEROL 0.5-3(2.5)MG/3ML NEB HHN SCH ×7 (01:03→23:50)
[2018-11-14] MEDS: HYDROCODONE/ACETAMINOPHEN 5/325MG TABLET PO PRN (02:06)
[2018-11-14 03:42] VITALS: BP 157/72
[2018-11-14] MEDS: SODIUM CHLORIDE 0.9% INJ 3ML FLUSH IVF SCH ×3 (06:00→21:41)
[2018-11-14] MEDS: OMEPRAZOLE 20MG CAPSULE EXTENDED RELEASE PO SCH (06:33)
[2018-11-14] MEDS: BLOOD SUGAR DIAGNOSTIC STRIP TEST SCH ×4 (06:33→21:33)
[2018-11-14 07:45] LABS: CHLORIDE 98 mEq/L (98-107)
[2018-11-14 07:54] LABS: HEMATOCRIT 49.7 % (42.0-52.0); HEMOGLOBIN 16.5 g/dL (14.0-18.0); MEAN CORPUSCULAR VOLUME 87.7 fL (80.0-94.0); PLATELET 140 x1000/uL (130-400); RED BLOOD CELL COUNT 5.67 mill/uL (4.7-6.1); RED CELL DISTRIBUTION WIDTH 15.1 % (11.6-14.6)
[2018-11-14 08:17] VITALS: BP 168/79
[2018-11-14] MEDS: INSULIN LISPRO 100 UNITS/ML SUBCUT SCH ×4 (09:10→21:44)
[2018-11-14] MEDS: METFORMIN HCL 500MG TABLET PO SCH ×2 (09:11→18:32)
[2018-11-14] MEDS: ALLOPURINOL 300 MG TABLET PO SCH (09:11)
[2018-11-14] MEDS: LISINOPRIL 20MG TABLET PO SCH (09:13)
[2018-11-14] MEDS: METHYLPREDNISOLONE SOD SUCC 40 MG/ML VIAL IV SCH (09:13)
[2018-11-14] MEDS: ENOXAPARIN 30MG/0.3ML SYR SUBCUT SCH ×2 (09:15→21:42)
[2018-11-14] MEDS: INSULIN GLARGINE UD 100 UNITS/ML SYR SUBCUT SCH ×2 (11:01→21:58)
[2018-11-14 12:42] VITALS: BP 148/88
[2018-11-14] MEDS: SODIUM CHLORIDE 45ML SPRAY NS PRN (15:35)
[2018-11-14 16:17] VITALS: BP 148/64
[2018-11-14] MEDS: MONTELUKAST SODIUM 10MG TABLET PO SCH (18:32)
[2018-11-14 20:00] VITALS: BP 164/76
[2018-11-15] VITALS: BP 157/75
[2018-11-15] MEDS: PIPERACILLIN SODIUM/TAZOBACTAM 4.5 G in DEXT 5% WATER 100 ML IV SCH ×2 (00:16→06:35)
[2018-11-15] MEDS: IPRATROPIUM/ALBUTEROL 0.5-3(2.5)MG/3ML NEB HHN SCH ×3 (03:57→13:36)
[2018-11-15 04:00] VITALS: BP 128/71
[2018-11-15] MEDS: BLOOD SUGAR DIAGNOSTIC STRIP TEST SCH (06:35)
[2018-11-15] MEDS: SODIUM CHLORIDE 0.9% INJ 3ML FLUSH IVF SCH (06:35)
[2018-11-15] MEDS: OMEPRAZOLE 20MG CAPSULE EXTENDED RELEASE PO SCH (06:36)
[2018-11-15] MEDS: METFORMIN HCL 500MG TABLET PO SCH (08:38)
[2018-11-15] MEDS: ALLOPURINOL 300 MG TABLET PO SCH (08:38)
[2018-11-15] MEDS: LISINOPRIL 20MG TABLET PO SCH (08:40)
[2018-11-15] MEDS: ENOXAPARIN 30MG/0.3ML SYR SUBCUT SCH (08:41)
[2018-11-15] MEDS: METHYLPREDNISOLONE SOD SUCC 40 MG/ML VIAL IV SCH (08:41)
[2018-11-15 08:45] VITALS: BP 163/69
[2018-11-15] MEDS: HYDROCODONE/ACETAMINOPHEN 5/325MG TABLET PO PRN ×2 (09:01→16:31)
[2018-11-15] MEDS: INSULIN LISPRO 100 UNITS/ML SUBCUT SCH (09:07)
[2018-11-15] MEDS: INSULIN GLARGINE UD 100 UNITS/ML SYR SUBCUT SCH (10:44)
[2018-11-15 12:38] VITALS: BP 173/79
[2018-11-15 15:06] VITALS: BP 145/79
[2018-11-15 16:31] VITALS: BP 141/66
== END 2018-11-15 16:35 | disposition home or self-care (01) | DRG 291 ==
LOC: ER 08:36 → EDBEDREQ 11:16 → ENRESERV 14:04 → 6WST 14:56
PROVIDERS: ADMIT Internal Medicine; ATTEND Internal Medicine
PROC: 5A09357 Assistance with Respiratory Ventilation, Less than 24 Consecutive Hours, Continuous Positive Airway Pressure (ICD-10-PCS; principal; 2018-11-10)
DX: I13.0 Hypertensive heart and chronic kidney disease with heart failure and stage 1 through stage 4 chronic kidney disease, or unspecified chronic kidney disease (principal); J96.00 Acute respiratory failure, unspecified whether with hypoxia or hypercapnia; I50.43 Acute on chronic combined systolic (congestive) and diastolic (congestive) heart failure; J44.1 Chronic obstructive pulmonary disease with (acute) exacerbation; L97.909 Non-pressure chronic ulcer of unspecified part of unspecified lower leg with unspecified severity; E44.1 Mild protein-calorie malnutrition; E66.2 Morbid (severe) obesity with alveolar hypoventilation; F11.20 Opioid dependence, uncomplicated; I42.9 Cardiomyopathy, unspecified; E87.8 Other disorders of electrolyte and fluid balance, not elsewhere classified; E11.22 Type 2 diabetes mellitus with diabetic chronic kidney disease; K80.20 Calculus of gallbladder without cholecystitis without obstruction; E78.5 Hyperlipidemia, unspecified; M19.90 Unspecified osteoarthritis, unspecified site; I34.0 Nonrheumatic mitral (valve) insufficiency; M10.9 Gout, unspecified; K76.0 Fatty (change of) liver, not elsewhere classified; N18.9 Chronic kidney disease, unspecified; T38.0X5A Adverse effect of glucocorticoids and synthetic analogues, initial encounter; Z82.49 Family history of ischemic heart disease and other diseases of the circulatory system; Z90.49 Acquired absence of other specified parts of digestive tract; Z91.19 Patient's noncompliance with other medical treatment and regimen; Z88.5 Allergy status to narcotic agent; Z71.3 Dietary counseling and surveillance; Z68.39 Body mass index [BMI] 39.0-39.9, adult
CPT/HCPCS: 36415; 71045; 71250; 80048; 80305; 81003; 82962; 83880; 84484; 85027; 93005; 94640; 94660; 97162; 99291; C1893; J1650; J1815; J2543; J2920; J2930; J3475; J7060; J7611; J7620

== ENCOUNTER 2018-11-27 11:29 | Inpatient (IN) | payer MEDICARE, MEDICAID ==
[~2018-11-27] VITALS: Ht 180.3 cm; Wt 117.9 kg
[2018-11-27 12:59] LABS: BASOPHILS % 0.6 % (0.0-2.0); EOSINOPHILS % 2.5 % (0.0-5.0); HEMATOCRIT. 48.8 % (42.0-52.0); HEMOGLOBIN. 16.3 g/dL (14.0-18.0); LYMPHOCYTES % 12.9 % (20.0-50.0); MEAN CORPUSCULAR HEMOGLOBIN 29.2 pg (28.0-32.0); MEAN CORPUSCULAR VOLUME 87.3 fL (80.0-94.0); MEAN PLATELET VOLUME 8.9 fl (7.4-10.4); MONOCYTES % 5.5 % (2.0-8.0); NEUTROPHILS % 78.5 % (40.0-76.0); PLATELET 106 x1000/uL (130-400); RED BLOOD CELL COUNT 5.59 mill/uL (4.7-6.1); RED CELL DISTRIBUTION WIDTH 15.7 % (11.6-14.6)
[2018-11-27 13:06] LABS: CHLORIDE 100 mEq/L (98-107)
[2018-11-27] MEDS ORDERED: TRAMADOL 50MG TABLET PO ONE ×2 (14:45→18:00)
[2018-11-28] VITALS: BP_SYST 131; BP_SYST 144; BP_DIAS 48; BP_DIAS 69
[2018-11-28] MEDS ORDERED: DEXTROSE 50% WATER 50ML SYRINGE IV PRN (01:30)
[2018-11-28] MEDS ORDERED: IPRATROPIUM/ALBUTEROL 0.5-3(2.5)MG/3ML NEB HHN PRN (01:45)
[2018-11-28] MEDS: HYDROCODONE/APAP 7.5/325MG 1 TAB TABLET PO PRN ×2 (03:49→12:52)
[2018-11-28 04:00] VITALS: BP 130/62
[2018-11-28] MEDS ORDERED: POTASSIUM CHLORIDE 20MEQ TABLET SR PO NR (04:00)
[2018-11-28 07:36] LABS: BASOPHILS % 0.8 % (0.0-2.0); EOSINOPHILS % 2.4 % (0.0-5.0); HEMATOCRIT. 46.4 % (42.0-52.0); HEMOGLOBIN. 15.4 g/dL (14.0-18.0); LYMPHOCYTES % 19.2 % (20.0-50.0); MEAN CORPUSCULAR HEMOGLOBIN 29.3 pg (28.0-32.0); MEAN PLATELET VOLUME 9.4 fl (7.4-10.4); MONOCYTES % 5.6 % (2.0-8.0); PLATELET 100 x1000/uL (130-400); RED BLOOD CELL COUNT 5.27 mill/uL (4.7-6.1); RED CELL DISTRIBUTION WIDTH 15.6 % (11.6-14.6)
[2018-11-28] MEDS: PANTOPRAZOLE 40MG DR TABLET PO SCH (07:40)
[2018-11-28] MEDS: BLOOD SUGAR DIAGNOSTIC STRIP TEST SCH ×4 (07:42→20:17)
[2018-11-28] MEDS: INSULIN LISPRO 100 UNITS/ML SUBCUT SCH ×4 (07:43→20:18)
[2018-11-28 07:51] LABS: CHLORIDE 99 mEq/L (98-107)
[2018-11-28 08:00] VITALS: BP 162/77
[2018-11-28] MEDS: FUROSEMIDE 40MG/4ML VIAL IVP SCH ×2 (09:43→17:44)
[2018-11-28] MEDS: ALLOPURINOL 300 MG TABLET PO SCH (09:43)
[2018-11-28] MEDS: ENOXAPARIN 30MG/0.3ML SYR SUBCUT SCH ×2 (09:44→20:56)
[2018-11-28] MEDS: LISINOPRIL 20MG TABLET PO SCH (09:44)
[2018-11-28 12:00] VITALS: BP_SYST 110; BP_SYST 154; BP_DIAS 42; BP_DIAS 53
[2018-11-28 16:00] VITALS: BP 134/61
[2018-11-28 20:00] VITALS: BP 146/75
[2018-11-28] MEDS: DIAZEPAM 5 MG TABLET PO SCH (20:55)
[2018-11-29] VITALS: BP 133/71
[2018-11-29 04:00] VITALS: BP 124/63
[2018-11-29] MEDS: BLOOD SUGAR DIAGNOSTIC STRIP TEST SCH ×4 (06:27→20:07)
[2018-11-29] MEDS: PANTOPRAZOLE 40MG DR TABLET PO SCH (06:45)
[2018-11-29] MEDS: HYDROCODONE/APAP 7.5/325MG 1 TAB TABLET PO PRN ×2 (06:45→19:03)
[2018-11-29] MEDS: INSULIN LISPRO 100 UNITS/ML SUBCUT SCH ×4 (07:10→20:13)
[2018-11-29 08:00] VITALS: BP 123/72
[2018-11-29] MEDS: FUROSEMIDE 40MG/4ML VIAL IVP SCH ×2 (09:33→19:02)
[2018-11-29] MEDS: ALLOPURINOL 300 MG TABLET PO SCH (09:34)
[2018-11-29] MEDS: ENOXAPARIN 30MG/0.3ML SYR SUBCUT SCH ×2 (09:34→20:11)
[2018-11-29] MEDS: LISINOPRIL 20MG TABLET PO SCH (09:34)
[2018-11-29 12:00] VITALS: BP 148/70
[2018-11-29 16:00] VITALS: BP 140/80
[2018-11-29 20:00] VITALS: BP 123/68
[2018-11-29] MEDS: DIAZEPAM 5 MG TABLET PO SCH (20:11)
[2018-11-30] VITALS: BP 116/58
[2018-11-30 04:00] VITALS: BP 121/58
[2018-11-30] MEDS: BLOOD SUGAR DIAGNOSTIC STRIP TEST SCH ×2 (07:50→20:19)
[2018-11-30 08:00] VITALS: BP 95/53
[2018-11-30] MEDS: LISINOPRIL 20MG TABLET PO SCH (09:00)
[2018-11-30] MEDS: FUROSEMIDE 40MG/4ML VIAL IVP SCH ×2 (09:22→17:21)
[2018-11-30] MEDS: ALLOPURINOL 300 MG TABLET PO SCH (09:22)
[2018-11-30] MEDS: PANTOPRAZOLE 40MG DR TABLET PO SCH (09:22)
[2018-11-30] MEDS: INSULIN LISPRO 100 UNITS/ML SUBCUT SCH ×3 (09:31→20:29)
[2018-11-30] MEDS: ENOXAPARIN 30MG/0.3ML SYR SUBCUT SCH ×2 (09:48→20:29)
[2018-11-30 12:00] VITALS: BP 100/51
[2018-11-30] MEDS: HYDROCODONE/APAP 7.5/325MG 1 TAB TABLET PO PRN (12:48)
[2018-11-30 16:00] VITALS: BP 142/65
[2018-11-30 20:00] VITALS: BP 115/68
[2018-11-30 20:06] LABS: CHLORIDE 98 mEq/L (98-107)
[2018-11-30] MEDS: DIAZEPAM 5 MG TABLET PO SCH (20:29)
[2018-11-30] MEDS ORDERED: MAGNESIUM 1 G PREMIX 100 ML IV NR (22:00)
[2018-11-30] MEDS ORDERED: MAGNESIUM 4 G PREMIX 100 ML IV NR (23:00)
[2018-12-01] VITALS: BP 152/57
[2018-12-01 04:00] VITALS: BP 157/57
[2018-12-01] MEDS: PANTOPRAZOLE 40MG DR TABLET PO SCH (07:14)
[2018-12-01 07:37] LABS: CHLORIDE 97 mEq/L (98-107)
[2018-12-01] MEDS: BLOOD SUGAR DIAGNOSTIC STRIP TEST SCH ×4 (07:40→21:15)
[2018-12-01 07:52] LABS: PHOSPHORUS 2.2 mg/dL (2.5-4.9)
[2018-12-01 08:00] VITALS: BP 122/60
[2018-12-01] MEDS: INSULIN LISPRO 100 UNITS/ML SUBCUT SCH ×4 (08:10→21:16)
[2018-12-01] MEDS: FUROSEMIDE 40MG/4ML VIAL IVP SCH ×2 (09:31→17:34)
[2018-12-01] MEDS: ENOXAPARIN 30MG/0.3ML SYR SUBCUT SCH ×2 (09:32→21:15)
[2018-12-01] MEDS: ALLOPURINOL 300 MG TABLET PO SCH (09:36)
[2018-12-01] MEDS: LISINOPRIL 20MG TABLET PO SCH (10:02)
[2018-12-01] MEDS: CYCLOBENZAPRINE 10MG TABLET PO SCH ×2 (15:24→21:15)
[2018-12-01] MEDS: HYDROCODONE/APAP 7.5/325MG 1 TAB TABLET PO PRN (15:37)
[2018-12-01 20:00] VITALS: BP 125/60
[2018-12-01] MEDS: DIAZEPAM 5 MG TABLET PO SCH (21:15)
[2018-12-02] VITALS: BP 98/55
[2018-12-02] MEDS: BLOOD SUGAR DIAGNOSTIC STRIP TEST SCH ×4 (06:40→21:36)
[2018-12-02] MEDS: CYCLOBENZAPRINE 10MG TABLET PO SCH ×3 (06:40→21:38)
[2018-12-02] MEDS: INSULIN LISPRO 100 UNITS/ML SUBCUT SCH ×4 (06:40→21:00)
[2018-12-02] MEDS: PANTOPRAZOLE 40MG DR TABLET PO SCH (06:40)
[2018-12-02 08:00] VITALS: BP 136/52
[2018-12-02] MEDS: LISINOPRIL 20MG TABLET PO SCH (09:28)
[2018-12-02] MEDS: ALLOPURINOL 300 MG TABLET PO SCH (09:28)
[2018-12-02] MEDS: FUROSEMIDE 40MG/4ML VIAL IVP SCH ×2 (09:29→17:57)
[2018-12-02] MEDS: ENOXAPARIN 30MG/0.3ML SYR SUBCUT SCH ×2 (09:29→21:38)
[2018-12-02 12:00] VITALS: BP 167/70
[2018-12-02] MEDS ORDERED: CLONIDINE 0.1MG TABLET PO PRN (14:45)
[2018-12-02 16:00] VITALS: BP 139/76
[2018-12-02 16:23] LABS: BASOPHILS % 0.7 % (0.0-2.0); EOSINOPHILS % 7.2 % (0.0-5.0); HEMATOCRIT. 48.2 % (42.0-52.0); MEAN CORPUSCULAR HEMOGLOBIN 29.4 pg (28.0-32.0); MEAN CORPUSCULAR VOLUME 88.3 fL (80.0-94.0); MEAN PLATELET VOLUME 9.7 fl (7.4-10.4); MONOCYTES % 8.5 % (2.0-8.0); NEUTROPHILS % 56.6 % (40.0-76.0); PLATELET 112 x1000/uL (130-400); RED BLOOD CELL COUNT 5.46 mill/uL (4.7-6.1); RED CELL DISTRIBUTION WIDTH 15.6 % (11.6-14.6)
[2018-12-02 16:27] LABS: CHLORIDE 99 mEq/L (98-107)
[2018-12-02 20:00] VITALS: BP 96/54
[2018-12-02] MEDS: DIAZEPAM 5 MG TABLET PO SCH (21:38)
[2018-12-02 21:50] VITALS: BP 130/69
[2018-12-02] MEDS: HYDROCODONE/APAP 7.5/325MG 1 TAB TABLET PO PRN (21:54)
[2018-12-03] VITALS: BP 108/57
[2018-12-03 04:00] VITALS: BP 115/70
[2018-12-03] MEDS: CYCLOBENZAPRINE 10MG TABLET PO SCH ×2 (05:36→15:05)
[2018-12-03] MEDS ORDERED: HYDROCODONE/APAP 7.5/325MG 1 TAB TABLET PO PRN (06:30)
[2018-12-03] MEDS: BLOOD SUGAR DIAGNOSTIC STRIP TEST SCH ×2 (07:40→13:12)
[2018-12-03 08:00] VITALS: BP 113/44
[2018-12-03] MEDS: INSULIN LISPRO 100 UNITS/ML SUBCUT SCH ×2 (08:10→13:10)
[2018-12-03] MEDS: ENOXAPARIN 30MG/0.3ML SYR SUBCUT SCH (09:30)
[2018-12-03] MEDS: FUROSEMIDE 40MG/4ML VIAL IVP SCH (09:30)
[2018-12-03] MEDS: LISINOPRIL 20MG TABLET PO SCH (09:31)
[2018-12-03] MEDS: PANTOPRAZOLE 40MG DR TABLET PO SCH (09:31)
[2018-12-03] MEDS: ALLOPURINOL 300 MG TABLET PO SCH (09:39)
[2018-12-03 12:00] VITALS: BP 113/52
[2018-12-03 16:24] VITALS: BP 110/63
== END 2018-12-03 16:55 | disposition home or self-care (01) | DRG 551 ==
LOC: ER 11:29 → 7WST 18:11 → ENRESERV 20:37
PROVIDERS: ADMIT Internal Medicine; ATTEND Internal Medicine
DX: M48.061 Spinal stenosis, lumbar region without neurogenic claudication (principal); I50.43 Acute on chronic combined systolic (congestive) and diastolic (congestive) heart failure; I13.0 Hypertensive heart and chronic kidney disease with heart failure and stage 1 through stage 4 chronic kidney disease, or unspecified chronic kidney disease; J44.1 Chronic obstructive pulmonary disease with (acute) exacerbation; E66.2 Morbid (severe) obesity with alveolar hypoventilation; F11.20 Opioid dependence, uncomplicated; M51.9 Unspecified thoracic, thoracolumbar and lumbosacral intervertebral disc disorder; D69.6 Thrombocytopenia, unspecified; D72.829 Elevated white blood cell count, unspecified; E11.22 Type 2 diabetes mellitus with diabetic chronic kidney disease; G89.29 Other chronic pain; M54.9 Dorsalgia, unspecified; K80.20 Calculus of gallbladder without cholecystitis without obstruction; M10.9 Gout, unspecified; M19.90 Unspecified osteoarthritis, unspecified site; N18.9 Chronic kidney disease, unspecified; T38.0X5A Adverse effect of glucocorticoids and synthetic analogues, initial encounter; Z90.49 Acquired absence of other specified parts of digestive tract; Z79.52 Long term (current) use of systemic steroids; Z79.84 Long term (current) use of oral hypoglycemic drugs; Z79.899 Other long term (current) drug therapy; Z91.19 Patient's noncompliance with other medical treatment and regimen; Z88.6 Allergy status to analgesic agent; Z88.8 Allergy status to other drugs, medicaments and biological substances
CPT/HCPCS: 36415; 71045; 72148; 80048; 82962; 83735; 83880; 84075; 84100; 84436; 84443; 84484; 86850; 86900; 93005; 97162; 99285; J1650; J1815; J1940; J3475

== ENCOUNTER 2019-02-02 12:02 | Inpatient (IN) | payer MEDICARE, MEDICAID ==
[~2019-02-02] VITALS: Ht 172.7 cm; Wt 78.0 kg
[2019-02-02 12:38] LABS: BASOPHILS % 0.2 % (0.0-2.0); EOSINOPHILS % 3.4 % (0.0-5.0); HEMOGLOBIN. 15.2 g/dL (14.0-18.0); LYMPHOCYTES % 23.2 % (20.0-50.0); MEAN CORPUSCULAR HEMOGLOBIN 30.2 pg (28.0-32.0); MEAN CORPUSCULAR VOLUME 89.6 fL (80.0-94.0); MEAN PLATELET VOLUME 9.2 fl (7.4-10.4); MONOCYTES % 7.5 % (2.0-8.0); NEUTROPHILS % 65.7 % (40.0-76.0); PLATELET 160 x1000/uL (130-400); RED BLOOD CELL COUNT 5.03 mill/uL (4.7-6.1); RED CELL DISTRIBUTION WIDTH 15.1 % (11.6-14.6)
[2019-02-02 12:44] LABS: CHLORIDE 102 mEq/L (98-107)
[2019-02-02 12:56] LABS: BG BASE EXCESS 5.6 mmol/L (-2.0-2.0); BG BILEVEL POS AIRWAY PRESSURE 16/5; BG CARBOXYHEMOGLOBIN 1.2 % (0.5-1.5); BG DEOXYHEMOGLOBIN 0.7 % (0.0-5.0); BG FRACTION INSPIRED OXYGEN 50; BG HCO3 ACT 32.2 mmol/L (22.0-26.0); BG METHEMOGLOBIN 0.1 % (0.0-1.5); BG OXYGEN SATURATION 99.3 % (92.0-98.5); BG PCO2 54.3 mmHg (35.0-45.0); BG PH 7.391 (7.350-7.450); BG PO2 186.4 mmHg (75.0-100.0); BG SAMPLE SITE RIGHT RADIAL; BG TOTAL HEMOGLOBIN 15.5 g/dL (12.0-18.0); BG VENT MODE MASK - BIPAP; BG VENT RATE 16 set
[2019-02-02] MEDS ORDERED: LIDOCAINE HCL/PF 1% 2ML VIAL ONE (13:00)
[2019-02-02] MEDS ORDERED: IPRATROPIUM BROMIDE (0.02%) 0.5MG/2.5ML NEB HHN STA (13:11)
[2019-02-02] MEDS ORDERED: METHYLPREDNISOLONE SOD SUCC 125 MG/2 ML VIAL IV STA (13:11)
[2019-02-02] MEDS ORDERED: ALBUTEROL (0.083%) 2.5MG/3ML NEB HHN STA (13:11)
[2019-02-02] MEDS ORDERED: DEXTROSE 50% WATER 50ML SYRINGE IV PRN (15:30)
[2019-02-02] MEDS ORDERED: DOCUSATE SODIUM 100MG CAPSULE PO PRN (15:30)
[2019-02-02] MEDS ORDERED: ONDANSETRON HCL 4MG/2ML INJ IV PRN (15:30)
[2019-02-02] MEDS ORDERED: ACETAMINOPHEN 325MG TABLET PO PRN (15:30)
[2019-02-02] MEDS ORDERED: NA PHOS,M-B/NA PHOS,DI-BA ENEMA 118ML PR PRN (15:30)
[2019-02-02] MEDS ORDERED: IPRATROPIUM/ALBUTEROL 0.5-3(2.5)MG/3ML NEB NEB PRN (15:30)
[2019-02-02] MEDS ORDERED: MAGNESIUM/ALUMINUM HYDROXIDE/SIMETHICONE 30ML UDC PO PRN (15:30)
[2019-02-02] MEDS ORDERED: ACETAMINOPHEN 650MG SUPP PR PRN (15:30)
[2019-02-02 20:22] LABS: INR 1.1; PROTHROMBIN TIME 11.1 sec (9.6-11.0)
[2019-02-02] MEDS: INSULIN LISPRO 100 UNITS/ML SUBCUT SCH (20:29)
[2019-02-02 23:00] VITALS: BP 116/65
[2019-02-02 23:30] VITALS: BP 116/65
[2019-02-03] VITALS: BP 125/57
[2019-02-03] MEDS: IPRATROPIUM/ALBUTEROL 0.5-3(2.5)MG/3ML NEB NEB SCH ×4 (00:41→20:12)
[2019-02-03] MEDS: METHYLPREDNISOLONE SOD SUCC 40 MG/ML VIAL IV SCH ×4 (02:05→21:35)
[2019-02-03] MEDS: METFORMIN HCL 500MG TABLET PO SCH ×3 (02:05→21:34)
[2019-02-03] MEDS: AMLODIPINE 5MG TABLET PO SCH ×3 (02:06→21:35)
[2019-02-03] MEDS: INSULIN GLARGINE UD 100 UNITS/ML SYR SUBCUT SCH ×2 (02:17→11:09)
[2019-02-03] MEDS: DIPHENHYDRAMINE 50MG/ML VIAL IV PRN ×2 (02:35→21:38)
[2019-02-03 04:00] VITALS: BP 164/87
[2019-02-03] MEDS: BLOOD SUGAR DIAGNOSTIC STRIP TEST SCH ×4 (06:42→21:35)
[2019-02-03] MEDS: OMEPRAZOLE 20MG CAPSULE EXTENDED RELEASE PO SCH (06:42)
[2019-02-03 07:01] LABS: BASOPHILS % 0.2 % (0.0-2.0); HEMATOCRIT. 43.4 % (42.0-52.0); HEMOGLOBIN. 14.8 g/dL (14.0-18.0); LYMPHOCYTES % 7.3 % (20.0-50.0); MEAN CORPUSCULAR HEMOGLOBIN 30.4 pg (28.0-32.0); MEAN CORPUSCULAR VOLUME 88.9 fL (80.0-94.0); MEAN PLATELET VOLUME 9.9 fl (7.4-10.4); MONOCYTES % 3.8 % (2.0-8.0); NEUTROPHILS % 88.7 % (40.0-76.0); PLATELET 151 x1000/uL (130-400); RED BLOOD CELL COUNT 4.88 mill/uL (4.7-6.1)
[2019-02-03 07:02] LABS: CHLORIDE 102 mEq/L (98-107)
[2019-02-03 07:11] LABS: LDL CHOLESTEROL 70 mg/dL (5-100)
[2019-02-03 07:12] LABS: CREATINE KINASE 227 IU/L (39-308)
[2019-02-03 07:13] LABS: CREATINE KINASE MB FRACTION 2.3 ng/mL (0.5-3.6); HDL CHOLESTEROL 56 mg/dL (40-59); T4 FREE 0.98 ng/dL (0.76-1.46)
[2019-02-03 08:00] VITALS: BP 164/68
[2019-02-03] MEDS: ALLOPURINOL 300 MG TABLET PO SCH (08:25)
[2019-02-03] MEDS: COLCHICINE 0.6MG TABLET PO SCH (08:25)
[2019-02-03] MEDS: LISINOPRIL 20MG TABLET PO SCH ×2 (08:29)
[2019-02-03] MEDS: INSULIN LISPRO 100 UNITS/ML SUBCUT SCH ×4 (08:42→21:38)
[2019-02-03] MEDS: BUDESONIDE 0.5MG/2ML NEB HHN SCH ×2 (10:37→20:12)
[2019-02-03] MEDS ORDERED: INSULIN LISPRO 100 UNITS/ML SUBCUT NR (11:00)
[2019-02-03 12:00] VITALS: BP 149/52
[2019-02-03] MEDS: GUAIFENESIN 200MG/10ML SUGAR FREE UDC PO PRN (13:34)
[2019-02-03] MEDS: HYDROCODONE/APAP 7.5/325MG 1 TAB TABLET PO PRN ×2 (13:36→19:43)
[2019-02-03 16:10] VITALS: BP 170/67
[2019-02-03 20:00] VITALS: BP 137/57
[2019-02-03] MEDS ORDERED: INSULIN GLARGINE UD 100 UNITS/ML SYR SUBCUT NR (23:30)
[2019-02-04] VITALS: BP 139/51
[2019-02-04] MEDS: GUAIFENESIN 200MG/10ML SUGAR FREE UDC PO PRN ×4 (01:47→21:07)
[2019-02-04] MEDS: HYDROCODONE/APAP 7.5/325MG 1 TAB TABLET PO PRN ×2 (01:47→22:19)
[2019-02-04] MEDS: IPRATROPIUM/ALBUTEROL 0.5-3(2.5)MG/3ML NEB NEB SCH ×4 (02:09→20:10)
[2019-02-04 03:49] VITALS: BP 140/64
[2019-02-04] MEDS: METHYLPREDNISOLONE SOD SUCC 40 MG/ML VIAL IV SCH ×3 (06:17→22:18)
[2019-02-04] MEDS: BLOOD SUGAR DIAGNOSTIC STRIP TEST SCH ×4 (06:20→20:57)
[2019-02-04] MEDS: OMEPRAZOLE 20MG CAPSULE EXTENDED RELEASE PO SCH (06:20)
[2019-02-04 08:00] VITALS: BP 150/69
[2019-02-04] MEDS: BUDESONIDE 0.5MG/2ML NEB HHN SCH ×2 (08:14→20:14)
[2019-02-04] MEDS: INSULIN LISPRO 100 UNITS/ML SUBCUT SCH ×4 (09:15→22:28)
[2019-02-04] MEDS: COLCHICINE 0.6MG TABLET PO SCH (09:21)
[2019-02-04] MEDS: METFORMIN HCL 500MG TABLET PO SCH ×2 (09:21→20:45)
[2019-02-04] MEDS: ALLOPURINOL 300 MG TABLET PO SCH (09:21)
[2019-02-04] MEDS: LISINOPRIL 20MG TABLET PO SCH (09:24)
[2019-02-04] MEDS: AMLODIPINE 5MG TABLET PO SCH ×2 (09:26→20:45)
[2019-02-04] MEDS: INSULIN GLARGINE UD 100 UNITS/ML SYR SUBCUT SCH ×2 (11:09→22:28)
[2019-02-04 12:00] VITALS: BP 153/78
[2019-02-04 16:00] VITALS: BP 157/76
[2019-02-04 20:00] VITALS: BP 151/62
[2019-02-04] MEDS: DIPHENHYDRAMINE 50MG/ML VIAL IV PRN (22:19)
[2019-02-05] VITALS: BP 158/74
[2019-02-05] MEDS: IPRATROPIUM/ALBUTEROL 0.5-3(2.5)MG/3ML NEB NEB SCH ×3 (02:08→14:48)
[2019-02-05 04:00] VITALS: BP 161/76
[2019-02-05] MEDS: METHYLPREDNISOLONE SOD SUCC 40 MG/ML VIAL IV SCH ×2 (06:42→12:52)
[2019-02-05] MEDS: OMEPRAZOLE 20MG CAPSULE EXTENDED RELEASE PO SCH (06:43)
[2019-02-05] MEDS: CLONIDINE 0.1MG TABLET PO PRN ×2 (06:43→08:18)
[2019-02-05] MEDS: BLOOD SUGAR DIAGNOSTIC STRIP TEST SCH ×2 (06:43→12:33)
[2019-02-05 08:00] VITALS: BP 185/65
[2019-02-05] MEDS: INSULIN LISPRO 100 UNITS/ML SUBCUT SCH ×2 (08:15→12:57)
[2019-02-05] MEDS: LISINOPRIL 20MG TABLET PO SCH (08:17)
[2019-02-05] MEDS: COLCHICINE 0.6MG TABLET PO SCH (08:17)
[2019-02-05] MEDS: METFORMIN HCL 500MG TABLET PO SCH (08:17)
[2019-02-05] MEDS: AMLODIPINE 5MG TABLET PO SCH (08:17)
[2019-02-05] MEDS: HYDROCODONE/APAP 7.5/325MG 1 TAB TABLET PO PRN (08:18)
[2019-02-05 08:27] LABS: CLARITY URINE CLEAR (CLEAR); COLOR URINE YELLOW (YELLOW); KETONES URINE NEGATIVE (NEGATIVE); LEUKOCYTE ESTERASE URINE NEGATIVE (NEGATIVE); NITRITE URINE NEGATIVE (NEGATIVE); OCCULT BLOOD URINE NEGATIVE (NEGATIVE); PH URINE 5.5 (4.5-8.0); PROTEIN URINE TRACE (NEGATIVE); UROBILINOGEN URINE 0.2 E.U./dL (0.2-1.0)
[2019-02-05] MEDS: ALLOPURINOL 300 MG TABLET PO SCH (08:28)
[2019-02-05 08:36] LABS: *AMPHETAMINES SCREEN URINE NEGATIVE (NEGATIVE); *BARBITURATES SCREEN URINE NEGATIVE (NEGATIVE); *BENZODIAZEPINES SCREEN URINE PRESUMTIVE POSITIVE (NEGATIVE); *COCAINE SCREEN URINE NEGATIVE (NEGATIVE); METHADONE URINE SCREEN NEGATIVE (NEGATIVE)
[2019-02-05 08:37] LABS: CANNABINOID URINE SCREEN NEGATIVE (NEGATIVE); OPIATES URINE SCREEN PRESUMTIVE POSITIVE (NEGATIVE); PHENCYCLIDINE URINE SCREEN NEGATIVE (NEGATIVE)
[2019-02-05] MEDS: INSULIN GLARGINE UD 100 UNITS/ML SYR SUBCUT SCH (10:23)
[2019-02-05 12:00] VITALS: BP 149/63
[2019-02-05] MEDS ORDERED: FAMOTIDINE 20MG TABLET PO SCH (21:00)
== END 2019-02-05 16:31 | disposition home or self-care (01) | DRG 189 ==
LOC: ER 12:43 → 6WST 14:02 → EDBEDREQTM 17:53 → EDBEDREQ 17:53 → EDBEDREQSVC 17:53 → ENRESERV 21:47
PROVIDERS: ADMIT Internal Medicine; ATTEND Internal Medicine
PROC: 5A09357 Assistance with Respiratory Ventilation, Less than 24 Consecutive Hours, Continuous Positive Airway Pressure (ICD-10-PCS; principal; 2019-02-02)
DX: J96.00 Acute respiratory failure, unspecified whether with hypoxia or hypercapnia (principal); I50.43 Acute on chronic combined systolic (congestive) and diastolic (congestive) heart failure; I13.0 Hypertensive heart and chronic kidney disease with heart failure and stage 1 through stage 4 chronic kidney disease, or unspecified chronic kidney disease; J44.1 Chronic obstructive pulmonary disease with (acute) exacerbation; E66.2 Morbid (severe) obesity with alveolar hypoventilation; F11.20 Opioid dependence, uncomplicated; E78.00 Pure hypercholesterolemia, unspecified; K80.20 Calculus of gallbladder without cholecystitis without obstruction; M19.90 Unspecified osteoarthritis, unspecified site; G89.29 Other chronic pain; E11.22 Type 2 diabetes mellitus with diabetic chronic kidney disease; M48.061 Spinal stenosis, lumbar region without neurogenic claudication; M10.9 Gout, unspecified; N18.9 Chronic kidney disease, unspecified; Z82.49 Family history of ischemic heart disease and other diseases of the circulatory system; Z90.49 Acquired absence of other specified parts of digestive tract; Z91.19 Patient's noncompliance with other medical treatment and regimen; Z88.6 Allergy status to analgesic agent; Z88.8 Allergy status to other drugs, medicaments and biological substances; Z79.84 Long term (current) use of oral hypoglycemic drugs; Z79.899 Other long term (current) drug therapy; Z72.0 Tobacco use
CPT/HCPCS: 36415; 36600; 71045; 80053; 80061; 80305; 81003; 82375; 82550; 82553; 82805; 82962; 83880; 84439; 84443; 84484; 85025; 93005; 96374; 99291; J1200; J1815; J2920; J2930; J3490; J7611; J7620; J7626

== ENCOUNTER 2019-02-05 16:52 | Inpatient (IN) | payer MEDICARE, MEDICAID ==
[~2019-02-05] VITALS: Ht 182.9 cm; Wt 116.6 kg
[2019-02-05] MEDS ORDERED: ALBUTEROL (0.083%) 2.5MG/3ML NEB HHN STA (17:56)
[2019-02-05] MEDS ORDERED: IPRATROPIUM BROMIDE (0.02%) 0.5MG/2.5ML NEB HHN STA (17:56)
[2019-02-05] MEDS ORDERED: METHYLPREDNISOLONE SOD SUCC 125 MG/2 ML VIAL IV STA (17:56)
[2019-02-05 18:10] LABS: HEMATOCRIT. 45.2 % (42.0-52.0); HEMOGLOBIN. 14.9 g/dL (14.0-18.0); MEAN CORPUSCULAR HEMOGLOBIN 29.7 pg (28.0-32.0); MEAN CORPUSCULAR VOLUME 90.2 fL (80.0-94.0); PLATELET 131 x1000/uL (130-400); RED BLOOD CELL COUNT 5.01 mill/uL (4.7-6.1); RED CELL DISTRIBUTION WIDTH 15.3 % (11.6-14.6)
[2019-02-05 18:13] LABS: CHLORIDE 99 mEq/L (98-107)
[2019-02-05 20:02] LABS: PLATELET ESTIMATE NORMAL
[2019-02-05] MEDS: MORPHINE SULFATE 2 MG/ML CPJ (NOT FOR IM USE) IV PRN (23:57)
[2019-02-06] MEDS ORDERED: DEXTROSE 50% WATER 50ML SYRINGE IV PRN (01:30)
[2019-02-06] MEDS: INSULIN LISPRO 100 UNITS/ML SUBCUT SCH ×7 (02:05→21:21)
[2019-02-06 02:20] VITALS: BP 155/76
[2019-02-06] MEDS: IPRATROPIUM/ALBUTEROL 0.5-3(2.5)MG/3ML NEB HHN PRN ×3 (03:08→14:32)
[2019-02-06 04:00] VITALS: BP 127/85
[2019-02-06] MEDS: MORPHINE SULFATE 2 MG/ML CPJ (NOT FOR IM USE) IV PRN (05:30)
[2019-02-06] MEDS: BLOOD SUGAR DIAGNOSTIC STRIP TEST SCH ×4 (05:59→20:52)
[2019-02-06 08:00] VITALS: BP 108/81
[2019-02-06] MEDS: OMEPRAZOLE 20MG CAPSULE EXTENDED RELEASE PO SCH (08:00)
[2019-02-06] MEDS: METFORMIN HCL 500MG TABLET PO SCH ×2 (08:02→18:16)
[2019-02-06] MEDS ORDERED: METOPROLOL TARTRATE 50MG TABLET PO SCH (09:00)
[2019-02-06] MEDS: LISINOPRIL 20MG TABLET PO SCH (09:00)
[2019-02-06] MEDS: METHYLPREDNISOLONE SOD SUCC 40 MG/ML VIAL IV SCH ×3 (09:30→21:19)
[2019-02-06] MEDS: CLOPIDOGREL 75MG TABLET PO SCH (09:34)
[2019-02-06] MEDS: COLCHICINE 0.6MG TABLET PO SCH (09:35)
[2019-02-06] MEDS: ENOXAPARIN 30MG/0.3ML SYR SUBCUT SCH ×2 (09:36→21:19)
[2019-02-06] MEDS: ALLOPURINOL 300 MG TABLET PO SCH (09:40)
[2019-02-06] MEDS ORDERED: BENZONATATE 100MG CAPSULE PO PRN (12:00)
[2019-02-06] MEDS: IPRATROPIUM/ALBUTEROL 0.5-3(2.5)MG/3ML NEB HHN SCH ×3 (12:37→21:32)
[2019-02-06] MEDS: GUAIFENESIN 600MG ER TABLET PO SCH ×2 (13:38→21:18)
[2019-02-06] MEDS ORDERED: MORPHINE SULFATE 2 MG/ML CPJ (NOT FOR IM USE) IV NR (15:30)
[2019-02-06 15:43] VITALS: BP 148/45
[2019-02-06 20:00] VITALS: BP 173/77
[2019-02-06] MEDS ORDERED: GUAIFENESIN 200MG/10ML SUGAR FREE UDC PO PRN (20:30)
[2019-02-06] MEDS: CLONIDINE 0.1MG TABLET PO PRN (21:18)
[2019-02-06] MEDS: DIAZEPAM 5 MG TABLET PO SCH (21:19)
[2019-02-06] MEDS: INSULIN GLARGINE UD 100 UNITS/ML SYR SUBCUT SCH (21:31)
[2019-02-07] VITALS (7 sets, daily range): BP systolic 147–198; BP diastolic 75–97
[2019-02-07] MEDS: IPRATROPIUM/ALBUTEROL 0.5-3(2.5)MG/3ML NEB HHN SCH ×6 (01:17→20:06)
[2019-02-07] MEDS: METHYLPREDNISOLONE SOD SUCC 40 MG/ML VIAL IV SCH ×2 (06:03→13:15)
[2019-02-07] MEDS ORDERED: THROAT LOZENGES-BENZOCAINE/MENTH/CETYLPYRD CL LOZENGES MM PRN ×2 (06:15→11:45)
[2019-02-07] MEDS: BLOOD SUGAR DIAGNOSTIC STRIP TEST SCH ×4 (07:47→21:54)
[2019-02-07] MEDS: METFORMIN HCL 500MG TABLET PO SCH ×2 (08:32→17:17)
[2019-02-07] MEDS: ENOXAPARIN 30MG/0.3ML SYR SUBCUT SCH ×2 (08:32→21:40)
[2019-02-07] MEDS: CLONIDINE 0.1MG TABLET PO PRN (08:33)
[2019-02-07] MEDS: OMEPRAZOLE 20MG CAPSULE EXTENDED RELEASE PO SCH (08:33)
[2019-02-07] MEDS: GUAIFENESIN 600MG ER TABLET PO SCH (08:33)
[2019-02-07] MEDS: ALLOPURINOL 300 MG TABLET PO SCH (08:33)
[2019-02-07] MEDS: CLOPIDOGREL 75MG TABLET PO SCH (08:33)
[2019-02-07] MEDS: LISINOPRIL 20MG TABLET PO SCH (08:33)
[2019-02-07] MEDS: COLCHICINE 0.6MG TABLET PO SCH (08:35)
[2019-02-07] MEDS: INSULIN LISPRO 100 UNITS/ML SUBCUT SCH ×6 (08:36→17:20)
[2019-02-07] MEDS: INSULIN GLARGINE UD 100 UNITS/ML SYR SUBCUT SCH (10:00)
[2019-02-07] MEDS: HYDRALAZINE HCL 10MG TABLET PO SCH ×2 (12:14→21:40)
[2019-02-07] MEDS ORDERED: HYDRALAZINE 20MG/ML VIAL IV PRN (12:15)
[2019-02-07] MEDS ORDERED: INSULIN LISPRO 100 UNITS/ML SUBCUT SCH (12:40)
[2019-02-07] MEDS: HYDROCODONE/ACETAMINOPHEN 5/325MG TABLET PO PRN ×2 (12:49→21:41)
[2019-02-07] MEDS: PHENOL/SODIUM PHENOLATE 1.4% SRPAY 177ML MM PRN ×2 (14:32→20:04)
[2019-02-07] MEDS ORDERED: NON FORMULARY PATIENT HOME MED XX SCH (14:45)
[2019-02-07] MEDS: MONTELUKAST SODIUM 10MG TABLET PO SCH (16:28)
[2019-02-07] MEDS: PIPERACILLIN/TAZOBACTAM 3.375 G in DEXT 5% WATER 100 ML IV SCH (16:29)
[2019-02-07] MEDS: SODIUM CHLORIDE 45ML SPRAY NS SCH (17:16)
[2019-02-07] MEDS: NYSTATIN 100,000 UNITS/ML 5ML UDC SSW SCH (17:17)
[2019-02-07] MEDS: DIPHENHYDRAMINE 12.5MG/5ML UDC PO SCH (17:23)
[2019-02-07] MEDS: VISCOUS LIDOCAINE 2% 15 ML UDC PO SCH (17:23)
[2019-02-07] MEDS: AMLODIPINE 5MG TABLET PO SCH (21:41)
[2019-02-07] MEDS: DIAZEPAM 5 MG TABLET PO SCH (21:41)
[2019-02-08] VITALS (8 sets, daily range): BP systolic 155–200; BP diastolic 65–94
[2019-02-08] MEDS: INSULIN LISPRO 100 UNITS/ML SUBCUT SCH ×8 (00:01→22:07)
[2019-02-08] MEDS: INSULIN GLARGINE UD 100 UNITS/ML SYR SUBCUT SCH ×3 (00:02→22:08)
[2019-02-08] MEDS: IPRATROPIUM/ALBUTEROL 0.5-3(2.5)MG/3ML NEB HHN SCH ×6 (00:32→20:05)
[2019-02-08] MEDS: PIPERACILLIN/TAZOBACTAM 3.375 G in DEXT 5% WATER 100 ML IV SCH ×5 (00:54→23:02)
[2019-02-08] MEDS: VISCOUS LIDOCAINE 2% 15 ML UDC PO SCH ×4 (00:54→17:26)
[2019-02-08] MEDS: SODIUM CHLORIDE 45ML SPRAY NS SCH ×5 (00:54→23:02)
[2019-02-08] MEDS: DIPHENHYDRAMINE 12.5MG/5ML UDC PO SCH ×4 (00:55→17:26)
[2019-02-08] MEDS: NYSTATIN 100,000 UNITS/ML 5ML UDC SSW SCH ×4 (00:57→17:26)
[2019-02-08] MEDS: GUAIFENESIN 600MG ER TABLET PO SCH ×3 (01:15→21:56)
[2019-02-08] MEDS: METHYLPREDNISOLONE SOD SUCC 40 MG/ML VIAL IV SCH ×2 (07:33)
[2019-02-08] MEDS: BLOOD SUGAR DIAGNOSTIC STRIP TEST SCH ×4 (07:45→21:59)
[2019-02-08] MEDS: ALLOPURINOL 300 MG TABLET PO SCH (08:33)
[2019-02-08] MEDS: LISINOPRIL 20MG TABLET PO SCH (08:33)
[2019-02-08] MEDS: CLOPIDOGREL 75MG TABLET PO SCH (08:34)
[2019-02-08] MEDS: HYDRALAZINE HCL 10MG TABLET PO SCH ×2 (08:34→21:56)
[2019-02-08] MEDS: AMLODIPINE 5MG TABLET PO SCH ×2 (08:34→21:56)
[2019-02-08] MEDS: OMEPRAZOLE 20MG CAPSULE EXTENDED RELEASE PO SCH (08:34)
[2019-02-08] MEDS: COLCHICINE 0.6MG TABLET PO SCH (08:34)
[2019-02-08] MEDS: METFORMIN HCL 500MG TABLET PO SCH ×2 (08:34→18:11)
[2019-02-08] MEDS: ENOXAPARIN 30MG/0.3ML SYR SUBCUT SCH ×2 (08:35→21:59)
[2019-02-08] MEDS: CLONIDINE 0.1MG TABLET PO PRN ×2 (13:34→22:08)
[2019-02-08 17:04] LABS: CHLORIDE 97 mEq/L (98-107)
[2019-02-08 17:13] LABS: BASOPHILS % 0.1 % (0.0-2.0); HEMATOCRIT. 49.1 % (42.0-52.0); HEMOGLOBIN. 16.2 g/dL (14.0-18.0); LYMPHOCYTES % 8.7 % (20.0-50.0); MEAN CORPUSCULAR HEMOGLOBIN 29.5 pg (28.0-32.0); MEAN CORPUSCULAR VOLUME 89.4 fL (80.0-94.0); MONOCYTES % 7.2 % (2.0-8.0); PLATELET 133 x1000/uL (130-400); RED BLOOD CELL COUNT 5.49 mill/uL (4.7-6.1); RED CELL DISTRIBUTION WIDTH 15.3 % (11.6-14.6)
[2019-02-08] MEDS: PREDNISONE 20MG TABLET PO SCH (17:26)
[2019-02-08] MEDS: MONTELUKAST SODIUM 10MG TABLET PO SCH (17:29)
[2019-02-08 17:45] LABS: HEPATITIS B SURFACE ANTIGEN NEGATIVE; MONOTEST NEGATIVE (NEGATIVE)
[2019-02-08 18:15] LABS: HEPATITIS A AB IGM NEGATIVE (NEGATIVE)
[2019-02-08] MEDS: HYDROCODONE/ACETAMINOPHEN 5/325MG TABLET PO PRN (18:39)
[2019-02-08] MEDS: DIAZEPAM 5 MG TABLET PO SCH (21:55)
[2019-02-09] VITALS: BP 155/74
[2019-02-09] MEDS: IPRATROPIUM/ALBUTEROL 0.5-3(2.5)MG/3ML NEB HHN SCH ×6 (01:28→20:16)
[2019-02-09 04:00] VITALS: BP 153/88
[2019-02-09] MEDS: PIPERACILLIN/TAZOBACTAM 3.375 G in DEXT 5% WATER 100 ML IV SCH ×2 (05:01→11:59)
[2019-02-09] MEDS: SODIUM CHLORIDE 45ML SPRAY NS SCH ×4 (05:01→23:30)
[2019-02-09] MEDS: BLOOD SUGAR DIAGNOSTIC STRIP TEST SCH ×4 (06:04→21:46)
[2019-02-09 08:00] VITALS: BP 154/74
[2019-02-09] MEDS: ALLOPURINOL 300 MG TABLET PO SCH (08:51)
[2019-02-09] MEDS: DIPHENHYDRAMINE 12.5MG/5ML UDC PO SCH ×3 (08:51→18:15)
[2019-02-09] MEDS: OMEPRAZOLE 20MG CAPSULE EXTENDED RELEASE PO SCH (08:51)
[2019-02-09] MEDS: LISINOPRIL 20MG TABLET PO SCH (08:52)
[2019-02-09] MEDS: PREDNISONE 20MG TABLET PO SCH ×2 (08:52→18:18)
[2019-02-09] MEDS: AMLODIPINE 5MG TABLET PO SCH ×2 (08:52→21:37)
[2019-02-09] MEDS: NYSTATIN 100,000 UNITS/ML 5ML UDC SSW SCH ×3 (08:52→18:15)
[2019-02-09] MEDS: COLCHICINE 0.6MG TABLET PO SCH (08:52)
[2019-02-09] MEDS: CLOPIDOGREL 75MG TABLET PO SCH (08:52)
[2019-02-09] MEDS: METFORMIN HCL 500MG TABLET PO SCH ×2 (08:53→18:14)
[2019-02-09] MEDS: HYDRALAZINE HCL 10MG TABLET PO SCH ×2 (08:53→21:37)
[2019-02-09] MEDS: INSULIN LISPRO 100 UNITS/ML SUBCUT SCH ×6 (08:54→21:47)
[2019-02-09] MEDS ORDERED: NON FORMULARY PATIENT HOME MED XX SCH (09:00)
[2019-02-09] MEDS: GUAIFENESIN 600MG ER TABLET PO SCH ×2 (09:01→21:37)
[2019-02-09] MEDS: ENOXAPARIN 30MG/0.3ML SYR SUBCUT SCH ×2 (09:01→21:45)
[2019-02-09] MEDS: VISCOUS LIDOCAINE 2% 15 ML UDC PO SCH ×3 (09:06→18:14)
[2019-02-09] MEDS: INSULIN GLARGINE UD 100 UNITS/ML SYR SUBCUT SCH ×2 (10:53→21:49)
[2019-02-09 11:49] LABS: BASOPHILS % 0.1 % (0.0-2.0); HEMATOCRIT. 46.4 % (42.0-52.0); HEMOGLOBIN. 15.4 g/dL (14.0-18.0); MEAN CORPUSCULAR HEMOGLOBIN 29.9 pg (28.0-32.0); MEAN PLATELET VOLUME 9.6 fl (7.4-10.4); MONOCYTES % 8.9 % (2.0-8.0); PLATELET 107 x1000/uL (130-400); RED BLOOD CELL COUNT 5.15 mill/uL (4.7-6.1); RED CELL DISTRIBUTION WIDTH 14.9 % (11.6-14.6)
[2019-02-09 12:00] VITALS: BP 135/78
[2019-02-09 12:00] LABS: CHLORIDE 97 mEq/L (98-107)
[2019-02-09 16:00] VITALS: BP 154/74
[2019-02-09] MEDS: FLUCONAZOLE 100MG TABLET PO SCH (18:15)
[2019-02-09] MEDS: HYDROCODONE/ACETAMINOPHEN 10/325MG TABLET PO PRN (18:15)
[2019-02-09] MEDS: MONTELUKAST SODIUM 10MG TABLET PO SCH (18:16)
[2019-02-09 20:00] VITALS: BP 153/76
[2019-02-09] MEDS: DIAZEPAM 5 MG TABLET PO SCH (21:37)
[2019-02-10] VITALS: BP 154/88
[2019-02-10] MEDS: HYDROCODONE/ACETAMINOPHEN 10/325MG TABLET PO PRN ×2 (03:29→21:57)
[2019-02-10 04:00] VITALS: BP 159/92
[2019-02-10] MEDS: IPRATROPIUM/ALBUTEROL 0.5-3(2.5)MG/3ML NEB HHN SCH ×5 (04:50→20:31)
[2019-02-10] MEDS: SODIUM CHLORIDE 45ML SPRAY NS SCH ×3 (05:03→17:52)
[2019-02-10] MEDS: BLOOD SUGAR DIAGNOSTIC STRIP TEST SCH ×4 (06:06→21:25)
[2019-02-10 08:00] VITALS: BP 115/70
[2019-02-10] MEDS: ENOXAPARIN 40MG/0.4ML SYR SUBCUT SCH ×4 (08:44→21:23)
[2019-02-10] MEDS: CLOPIDOGREL 75MG TABLET PO SCH (08:45)
[2019-02-10] MEDS: NYSTATIN 100,000 UNITS/ML 5ML UDC SSW SCH ×3 (08:45→17:48)
[2019-02-10] MEDS: VISCOUS LIDOCAINE 2% 15 ML UDC PO SCH ×3 (08:45→17:49)
[2019-02-10] MEDS: LISINOPRIL 20MG TABLET PO SCH (08:45)
[2019-02-10] MEDS: HYDRALAZINE HCL 10MG TABLET PO SCH ×2 (08:46→21:24)
[2019-02-10] MEDS: METFORMIN HCL 500MG TABLET PO SCH ×2 (08:46→17:49)
[2019-02-10] MEDS: OMEPRAZOLE 20MG CAPSULE EXTENDED RELEASE PO SCH (08:46)
[2019-02-10] MEDS: FLUCONAZOLE 100MG TABLET PO SCH (08:46)
[2019-02-10] MEDS: GUAIFENESIN 600MG ER TABLET PO SCH ×2 (08:46→21:23)
[2019-02-10] MEDS: COLCHICINE 0.6MG TABLET PO SCH (08:46)
[2019-02-10] MEDS: PREDNISONE 20MG TABLET PO SCH ×2 (08:46→17:49)
[2019-02-10] MEDS: ALLOPURINOL 300 MG TABLET PO SCH (08:46)
[2019-02-10] MEDS: INSULIN LISPRO 100 UNITS/ML SUBCUT SCH ×7 (08:48→21:22)
[2019-02-10] MEDS: DIPHENHYDRAMINE 12.5MG/5ML UDC PO SCH ×3 (09:00→17:49)
[2019-02-10] MEDS: INSULIN GLARGINE UD 100 UNITS/ML SYR SUBCUT SCH ×2 (11:28→21:22)
[2019-02-10 12:00] VITALS: BP 136/61
[2019-02-10] MEDS: AMLODIPINE 5MG TABLET PO SCH ×2 (13:41→21:24)
[2019-02-10 16:00] VITALS: BP 150/82
[2019-02-10] MEDS: MONTELUKAST SODIUM 10MG TABLET PO SCH (17:49)
[2019-02-10 20:00] VITALS: BP 180/88
[2019-02-10] MEDS: DIAZEPAM 5 MG TABLET PO SCH (21:23)
[2019-02-11] VITALS: BP 139/80
[2019-02-11] MEDS: SODIUM CHLORIDE 45ML SPRAY NS SCH ×5 (00:05→18:00)
[2019-02-11] MEDS: IPRATROPIUM/ALBUTEROL 0.5-3(2.5)MG/3ML NEB HHN SCH ×5 (02:40→21:03)
[2019-02-11] MEDS ORDERED: THROAT LOZENGES-BENZOCAINE/MENTH/CETYLPYRD CL LOZENGES MM PRN (03:30)
[2019-02-11 04:00] VITALS: BP 137/81
[2019-02-11 08:00] VITALS: BP 146/85
[2019-02-11 08:07] LABS: HIV SCREEN 4G Non Reactive (Non Reactive)
[2019-02-11] MEDS: BLOOD SUGAR DIAGNOSTIC STRIP TEST SCH ×4 (08:19→21:12)
[2019-02-11] MEDS: ALLOPURINOL 300 MG TABLET PO SCH (08:53)
[2019-02-11] MEDS: COLCHICINE 0.6MG TABLET PO SCH (08:54)
[2019-02-11] MEDS: METFORMIN HCL 500MG TABLET PO SCH ×2 (08:54→19:10)
[2019-02-11] MEDS: CLOPIDOGREL 75MG TABLET PO SCH (08:54)
[2019-02-11] MEDS: FLUCONAZOLE 100MG TABLET PO SCH (08:54)
[2019-02-11] MEDS: AMLODIPINE 5MG TABLET PO SCH ×2 (08:54→20:24)
[2019-02-11] MEDS: NYSTATIN 100,000 UNITS/ML 5ML UDC SSW SCH ×3 (08:55→19:05)
[2019-02-11] MEDS: VISCOUS LIDOCAINE 2% 15 ML UDC PO SCH ×3 (08:55→19:05)
[2019-02-11] MEDS: DIPHENHYDRAMINE 12.5MG/5ML UDC PO SCH ×3 (08:55→19:05)
[2019-02-11] MEDS: GUAIFENESIN 600MG ER TABLET PO SCH ×2 (08:57→20:24)
[2019-02-11] MEDS: HYDRALAZINE HCL 10MG TABLET PO SCH ×2 (08:57→20:24)
[2019-02-11] MEDS: OMEPRAZOLE 20MG CAPSULE EXTENDED RELEASE PO SCH (08:57)
[2019-02-11] MEDS: ENOXAPARIN 40MG/0.4ML SYR SUBCUT SCH ×2 (08:58→21:30)
[2019-02-11] MEDS: PREDNISONE 20MG TABLET PO SCH ×2 (09:02→19:11)
[2019-02-11] MEDS: LISINOPRIL 20MG TABLET PO SCH (09:02)
[2019-02-11] MEDS: INSULIN LISPRO 100 UNITS/ML SUBCUT SCH ×7 (09:06→21:30)
[2019-02-11] MEDS: INSULIN GLARGINE UD 100 UNITS/ML SYR SUBCUT SCH ×2 (10:43→21:30)
[2019-02-11 12:00] VITALS: BP 140/83
[2019-02-11 16:00] VITALS: BP 143/93
[2019-02-11] MEDS: MONTELUKAST SODIUM 10MG TABLET PO SCH (19:05)
[2019-02-11 20:00] VITALS: BP 180/105
[2019-02-11] MEDS: DIAZEPAM 5 MG TABLET PO SCH (20:24)
[2019-02-11] MEDS: CLONIDINE 0.1MG TABLET PO PRN (20:24)
[2019-02-12] VITALS: BP 136/62
[2019-02-12] MEDS: IPRATROPIUM/ALBUTEROL 0.5-3(2.5)MG/3ML NEB HHN SCH ×6 (01:03→21:46)
[2019-02-12] MEDS: HYDROCODONE/ACETAMINOPHEN 10/325MG TABLET PO PRN ×2 (03:02→18:33)
[2019-02-12 04:00] VITALS: BP 117/70
[2019-02-12] MEDS: METHYLPREDNISOLONE SOD SUCC 40 MG/ML VIAL IV SCH ×3 (04:18→21:42)
[2019-02-12] MEDS: SODIUM CHLORIDE 45ML SPRAY NS SCH ×5 (06:33→23:21)
[2019-02-12] MEDS: BLOOD SUGAR DIAGNOSTIC STRIP TEST SCH ×4 (07:42→21:00)
[2019-02-12 08:00] VITALS: BP 140/84
[2019-02-12] MEDS: DIPHENHYDRAMINE 12.5MG/5ML UDC PO SCH ×3 (09:14→18:30)
[2019-02-12] MEDS: CLOPIDOGREL 75MG TABLET PO SCH (09:14)
[2019-02-12] MEDS: VISCOUS LIDOCAINE 2% 15 ML UDC PO SCH ×3 (09:14→18:30)
[2019-02-12] MEDS: NYSTATIN 100,000 UNITS/ML 5ML UDC SSW SCH ×3 (09:14→18:30)
[2019-02-12] MEDS: ENOXAPARIN 40MG/0.4ML SYR SUBCUT SCH ×2 (09:15→21:43)
[2019-02-12] MEDS: FLUCONAZOLE 100MG TABLET PO SCH (09:15)
[2019-02-12] MEDS: METFORMIN HCL 500MG TABLET PO SCH ×2 (09:15→18:32)
[2019-02-12] MEDS: OMEPRAZOLE 20MG CAPSULE EXTENDED RELEASE PO SCH (09:15)
[2019-02-12] MEDS: GUAIFENESIN 600MG ER TABLET PO SCH ×2 (09:16→21:42)
[2019-02-12] MEDS: HYDRALAZINE HCL 10MG TABLET PO SCH ×2 (09:16→21:42)
[2019-02-12] MEDS: COLCHICINE 0.6MG TABLET PO SCH (09:16)
[2019-02-12] MEDS: LISINOPRIL 20MG TABLET PO SCH (09:16)
[2019-02-12] MEDS: AMLODIPINE 5MG TABLET PO SCH ×2 (09:17→21:42)
[2019-02-12] MEDS: ALLOPURINOL 300 MG TABLET PO SCH (09:23)
[2019-02-12] MEDS: INSULIN LISPRO 100 UNITS/ML SUBCUT SCH ×7 (09:24→22:02)
[2019-02-12] MEDS: INSULIN GLARGINE UD 100 UNITS/ML SYR SUBCUT SCH ×2 (09:59→22:03)
[2019-02-12 12:00] VITALS: BP 132/78
[2019-02-12 16:00] VITALS: BP 153/96
[2019-02-12] MEDS: MONTELUKAST SODIUM 10MG TABLET PO SCH (18:32)
[2019-02-13] VITALS: BP 124/81
[2019-02-13] MEDS: IPRATROPIUM/ALBUTEROL 0.5-3(2.5)MG/3ML NEB HHN SCH ×5 (00:09→22:09)
[2019-02-13 04:00] VITALS: BP 149/82
[2019-02-13] MEDS: SODIUM CHLORIDE 45ML SPRAY NS SCH ×4 (05:08→23:44)
[2019-02-13] MEDS: METHYLPREDNISOLONE SOD SUCC 40 MG/ML VIAL IV SCH (05:10)
[2019-02-13] MEDS: BLOOD SUGAR DIAGNOSTIC STRIP TEST SCH ×4 (07:40→21:19)
[2019-02-13 08:00] VITALS: BP 164/105
[2019-02-13 09:02] LABS: HEMATOCRIT. 48.8 % (42.0-52.0); HEMOGLOBIN. 16.1 g/dL (14.0-18.0); MEAN CORPUSCULAR HEMOGLOBIN 29.8 pg (28.0-32.0); MEAN CORPUSCULAR VOLUME 90.1 fL (80.0-94.0); MEAN PLATELET VOLUME 10.3 fl (7.4-10.4); PLATELET 126 x1000/uL (130-400); RED BLOOD CELL COUNT 5.41 mill/uL (4.7-6.1); RED CELL DISTRIBUTION WIDTH 15.3 % (11.6-14.6)
[2019-02-13 09:10] LABS: CHLORIDE 97 mEq/L (98-107)
[2019-02-13] MEDS: INSULIN LISPRO 100 UNITS/ML SUBCUT SCH ×7 (09:38→21:20)
[2019-02-13] MEDS: INSULIN GLARGINE UD 100 UNITS/ML SYR SUBCUT SCH ×2 (09:39→21:19)
[2019-02-13] MEDS: ALLOPURINOL 300 MG TABLET PO SCH (09:40)
[2019-02-13] MEDS: METFORMIN HCL 500MG TABLET PO SCH ×2 (09:42→18:37)
[2019-02-13] MEDS: LISINOPRIL 20MG TABLET PO SCH (09:42)
[2019-02-13] MEDS: HYDRALAZINE HCL 10MG TABLET PO SCH ×2 (09:42→21:20)
[2019-02-13] MEDS: CLOPIDOGREL 75MG TABLET PO SCH (09:42)
[2019-02-13] MEDS: COLCHICINE 0.6MG TABLET PO SCH (09:42)
[2019-02-13] MEDS: NYSTATIN 100,000 UNITS/ML 5ML UDC SSW SCH ×3 (09:43→18:38)
[2019-02-13] MEDS: AMLODIPINE 5MG TABLET PO SCH ×2 (09:44→21:20)
[2019-02-13] MEDS: GUAIFENESIN 600MG ER TABLET PO SCH ×2 (09:44→21:20)
[2019-02-13] MEDS: HYDROCODONE/ACETAMINOPHEN 10/325MG TABLET PO PRN ×2 (09:44→18:37)
[2019-02-13] MEDS: OMEPRAZOLE 20MG CAPSULE EXTENDED RELEASE PO SCH (09:44)
[2019-02-13] MEDS: FLUCONAZOLE 100MG TABLET PO SCH (09:45)
[2019-02-13] MEDS: VISCOUS LIDOCAINE 2% 15 ML UDC PO SCH ×3 (09:45→18:38)
[2019-02-13] MEDS: DIPHENHYDRAMINE 12.5MG/5ML UDC PO SCH ×3 (09:45→18:38)
[2019-02-13] MEDS: ENOXAPARIN 40MG/0.4ML SYR SUBCUT SCH ×2 (09:49→21:18)
[2019-02-13 12:00] VITALS: BP 124/78
[2019-02-13 13:03] LABS: PLATELET ESTIMATE SLIGHTLY DECREASED
[2019-02-13] MEDS: MONTELUKAST SODIUM 10MG TABLET PO SCH (18:41)
[2019-02-13 20:00] VITALS: BP 114/59
[2019-02-14] VITALS: BP 142/77
[2019-02-14] MEDS: IPRATROPIUM/ALBUTEROL 0.5-3(2.5)MG/3ML NEB HHN SCH ×5 (02:54→21:08)
[2019-02-14 04:00] VITALS: BP 111/65
[2019-02-14] MEDS: SODIUM CHLORIDE 45ML SPRAY NS SCH ×3 (05:41→17:50)
[2019-02-14 08:00] VITALS: BP 116/77
[2019-02-14] MEDS: ACETYLCYSTEINE 100MG/ML 10% VIAL 4ML INH SCH ×2 (08:00→16:00)
[2019-02-14 08:12] VITALS: BP 116/7
[2019-02-14] MEDS: ALLOPURINOL 300 MG TABLET PO SCH (08:26)
[2019-02-14] MEDS: METFORMIN HCL 500MG TABLET PO SCH ×2 (08:27→17:53)
[2019-02-14] MEDS: HYDRALAZINE HCL 10MG TABLET PO SCH ×2 (08:27→21:00)
[2019-02-14] MEDS: OMEPRAZOLE 20MG CAPSULE EXTENDED RELEASE PO SCH (08:27)
[2019-02-14] MEDS: GUAIFENESIN 600MG ER TABLET PO SCH ×2 (08:27→21:28)
[2019-02-14] MEDS: LISINOPRIL 20MG TABLET PO SCH (08:27)
[2019-02-14] MEDS: AMLODIPINE 5MG TABLET PO SCH ×2 (08:28→21:00)
[2019-02-14] MEDS: DIPHENHYDRAMINE 12.5MG/5ML UDC PO SCH ×3 (08:28→17:57)
[2019-02-14] MEDS: CLOPIDOGREL 75MG TABLET PO SCH (08:28)
[2019-02-14] MEDS: NYSTATIN 100,000 UNITS/ML 5ML UDC SSW SCH ×2 (08:28→12:55)
[2019-02-14] MEDS: VISCOUS LIDOCAINE 2% 15 ML UDC PO SCH ×3 (08:28→17:58)
[2019-02-14] MEDS: COLCHICINE 0.6MG TABLET PO SCH (08:28)
[2019-02-14] MEDS: INSULIN LISPRO 100 UNITS/ML SUBCUT SCH ×7 (08:30→21:26)
[2019-02-14] MEDS: BLOOD SUGAR DIAGNOSTIC STRIP TEST SCH ×4 (08:31→21:25)
[2019-02-14] MEDS: ENOXAPARIN 40MG/0.4ML SYR SUBCUT SCH (08:31)
[2019-02-14 08:52] LABS: HEMATOCRIT. 48.9 % (42.0-52.0); HEMOGLOBIN. 16.1 g/dL (14.0-18.0); MEAN CORPUSCULAR HEMOGLOBIN 29.7 pg (28.0-32.0); MEAN CORPUSCULAR VOLUME 90.6 fL (80.0-94.0); MEAN PLATELET VOLUME 10.2 fl (7.4-10.4); PLATELET 123 x1000/uL (130-400); RED CELL DISTRIBUTION WIDTH 15.1 % (11.6-14.6)
[2019-02-14 08:58] LABS: CHLORIDE 97 mEq/L (98-107)
[2019-02-14] MEDS ORDERED: PREDNISONE 20MG TABLET PO SCH (09:00)
[2019-02-14] MEDS: INSULIN GLARGINE UD 100 UNITS/ML SYR SUBCUT SCH ×2 (09:22→21:28)
[2019-02-14 10:17] LABS: PLATELET ESTIMATE SLIGHTLY DECREASED
[2019-02-14 12:19] VITALS: BP 157/79
[2019-02-14] MEDS: MONTELUKAST SODIUM 10MG TABLET PO SCH (17:53)
[2019-02-14 20:00] VITALS: BP 100/61
[2019-02-15] VITALS: BP 113/55
[2019-02-15] MEDS: HYDROCODONE/ACETAMINOPHEN 10/325MG TABLET PO PRN ×2 (00:15→18:04)
[2019-02-15] MEDS: SODIUM CHLORIDE 45ML SPRAY NS SCH ×4 (00:15→18:02)
[2019-02-15] MEDS: ACETYLCYSTEINE 100MG/ML 10% VIAL 4ML INH SCH ×3 (00:42→20:09)
[2019-02-15] MEDS: IPRATROPIUM/ALBUTEROL 0.5-3(2.5)MG/3ML NEB HHN SCH ×6 (00:42→20:10)
[2019-02-15 04:00] VITALS: BP 106/63
[2019-02-15] MEDS: BLOOD SUGAR DIAGNOSTIC STRIP TEST SCH ×4 (07:40→21:35)
[2019-02-15 08:00] VITALS: BP 99/61
[2019-02-15] MEDS: OMEPRAZOLE 20MG CAPSULE EXTENDED RELEASE PO SCH (08:09)
[2019-02-15] MEDS: PREDNISONE 20MG TABLET PO SCH (08:10)
[2019-02-15] MEDS: METFORMIN HCL 500MG TABLET PO SCH ×2 (08:10→17:52)
[2019-02-15] MEDS: INSULIN LISPRO 100 UNITS/ML SUBCUT SCH ×7 (08:11→21:00)
[2019-02-15] MEDS ORDERED: ENOXAPARIN 40MG/0.4ML SYR SUBCUT SCH (09:00)
[2019-02-15] MEDS: DIPHENHYDRAMINE 12.5MG/5ML UDC PO SCH ×3 (09:01→17:52)
[2019-02-15] MEDS: VISCOUS LIDOCAINE 2% 15 ML UDC PO SCH ×3 (09:01→17:52)
[2019-02-15] MEDS: LISINOPRIL 20MG TABLET PO SCH (09:02)
[2019-02-15] MEDS: ALLOPURINOL 300 MG TABLET PO SCH (09:02)
[2019-02-15] MEDS: AMLODIPINE 5MG TABLET PO SCH ×2 (09:02→21:35)
[2019-02-15] MEDS: CLOPIDOGREL 75MG TABLET PO SCH (09:02)
[2019-02-15] MEDS: GUAIFENESIN 600MG ER TABLET PO SCH ×2 (09:02→21:34)
[2019-02-15] MEDS: COLCHICINE 0.6MG TABLET PO SCH (09:02)
[2019-02-15] MEDS: HYDRALAZINE HCL 10MG TABLET PO SCH ×2 (09:04→21:34)
[2019-02-15] MEDS: INSULIN GLARGINE UD 100 UNITS/ML SYR SUBCUT SCH ×2 (11:01→21:36)
[2019-02-15 12:00] VITALS: BP 99/61
[2019-02-15 16:00] VITALS: BP 112/70
[2019-02-15] MEDS ORDERED: FUROSEMIDE 40MG/4ML VIAL IVP NR (16:45)
[2019-02-15] MEDS: MONTELUKAST SODIUM 10MG TABLET PO SCH (17:52)
[2019-02-15 20:00] VITALS: BP 110/72
[2019-02-15 21:52] LABS: *AMPHETAMINES SCREEN URINE NEGATIVE (NEGATIVE); *BARBITURATES SCREEN URINE NEGATIVE (NEGATIVE); *BENZODIAZEPINES SCREEN URINE NEGATIVE (NEGATIVE); *COCAINE SCREEN URINE NEGATIVE (NEGATIVE); CANNABINOID URINE SCREEN NEGATIVE (NEGATIVE); METHADONE URINE SCREEN NEGATIVE (NEGATIVE); OPIATES URINE SCREEN NEGATIVE (NEGATIVE); PHENCYCLIDINE URINE SCREEN NEGATIVE (NEGATIVE)
[2019-02-16] VITALS: BP 116/67
[2019-02-16 04:00] VITALS: BP 114/74
[2019-02-16] MEDS: IPRATROPIUM/ALBUTEROL 0.5-3(2.5)MG/3ML NEB HHN SCH ×4 (07:19→21:27)
[2019-02-16] MEDS: BLOOD SUGAR DIAGNOSTIC STRIP TEST SCH ×4 (07:40→21:56)
[2019-02-16 08:00] VITALS: BP 117/63
[2019-02-16] MEDS: INSULIN LISPRO 100 UNITS/ML SUBCUT SCH ×7 (08:44→21:56)
[2019-02-16] MEDS: VISCOUS LIDOCAINE 2% 15 ML UDC PO SCH ×3 (08:45→17:33)
[2019-02-16] MEDS: ENOXAPARIN 30MG/0.3ML SYR SUBCUT SCH ×2 (08:48→21:55)
[2019-02-16] MEDS: DIPHENHYDRAMINE 12.5MG/5ML UDC PO SCH ×3 (08:48→17:33)
[2019-02-16] MEDS: PREDNISONE 20MG TABLET PO SCH (08:48)
[2019-02-16] MEDS: HYDRALAZINE HCL 10MG TABLET PO SCH ×2 (08:49→21:00)
[2019-02-16] MEDS: OMEPRAZOLE 20MG CAPSULE EXTENDED RELEASE PO SCH (08:49)
[2019-02-16] MEDS: CLOPIDOGREL 75MG TABLET PO SCH (08:49)
[2019-02-16] MEDS: AMLODIPINE 5MG TABLET PO SCH ×2 (08:51→21:00)
[2019-02-16] MEDS: METFORMIN HCL 500MG TABLET PO SCH ×2 (08:51→17:32)
[2019-02-16] MEDS: COLCHICINE 0.6MG TABLET PO SCH (08:52)
[2019-02-16] MEDS: GUAIFENESIN 600MG ER TABLET PO SCH ×2 (08:52→21:54)
[2019-02-16] MEDS: LISINOPRIL 20MG TABLET PO SCH (08:52)
[2019-02-16] MEDS: ALLOPURINOL 300 MG TABLET PO SCH (09:27)
[2019-02-16] MEDS: ACETYLCYSTEINE 100MG/ML 10% VIAL 4ML INH SCH ×2 (09:33→15:17)
[2019-02-16] MEDS: INSULIN GLARGINE UD 100 UNITS/ML SYR SUBCUT SCH ×2 (10:56→21:56)
[2019-02-16 12:00] VITALS: BP 111/44
[2019-02-16] MEDS: FUROSEMIDE 40MG/4ML VIAL IVP SCH (12:45)
[2019-02-16] MEDS: HYDROCODONE/ACETAMINOPHEN 10/325MG TABLET PO PRN ×2 (15:02→21:54)
[2019-02-16 16:00] VITALS: BP 115/61
[2019-02-16] MEDS: MONTELUKAST SODIUM 10MG TABLET PO SCH (17:32)
[2019-02-16 20:00] VITALS: BP 104/54
[2019-02-17 00:12] VITALS: BP 121/67
[2019-02-17] MEDS: IPRATROPIUM/ALBUTEROL 0.5-3(2.5)MG/3ML NEB HHN SCH ×5 (00:30→17:26)
[2019-02-17] MEDS: ACETYLCYSTEINE 100MG/ML 10% VIAL 4ML INH SCH ×2 (00:30→17:26)
[2019-02-17 04:00] VITALS: BP 113/59
[2019-02-17 06:46] LABS: BASOPHILS % 0.3 % (0.0-2.0); EOSINOPHILS % 0.3 % (0.0-5.0); HEMOGLOBIN. 15.6 g/dL (14.0-18.0); LYMPHOCYTES % 9.6 % (20.0-50.0); MEAN CORPUSCULAR HEMOGLOBIN 29.8 pg (28.0-32.0); MEAN CORPUSCULAR VOLUME 89.8 fL (80.0-94.0); MONOCYTES % 5.9 % (2.0-8.0); NEUTROPHILS % 83.9 % (40.0-76.0); RED BLOOD CELL COUNT 5.24 mill/uL (4.7-6.1)
[2019-02-17] MEDS: BLOOD SUGAR DIAGNOSTIC STRIP TEST SCH ×3 (06:55→18:27)
[2019-02-17 07:25] LABS: CHLORIDE 96 mEq/L (98-107)
[2019-02-17] MEDS: HYDROCODONE/ACETAMINOPHEN 10/325MG TABLET PO PRN ×2 (07:53→15:20)
[2019-02-17] MEDS: ALLOPURINOL 300 MG TABLET PO SCH (07:53)
[2019-02-17] MEDS: OMEPRAZOLE 20MG CAPSULE EXTENDED RELEASE PO SCH (07:56)
[2019-02-17 08:00] VITALS: BP 178/101
[2019-02-17 08:03] LABS: PLATELET 93 x1000/uL (130-400)
[2019-02-17] MEDS: COLCHICINE 0.6MG TABLET PO SCH (08:51)
[2019-02-17] MEDS: METFORMIN HCL 500MG TABLET PO SCH ×2 (08:52→18:31)
[2019-02-17] MEDS: GUAIFENESIN 600MG ER TABLET PO SCH (08:52)
[2019-02-17] MEDS: CLOPIDOGREL 75MG TABLET PO SCH (08:52)
[2019-02-17] MEDS: VISCOUS LIDOCAINE 2% 15 ML UDC PO SCH (08:52)
[2019-02-17] MEDS: PREDNISONE 20MG TABLET PO SCH (08:52)
[2019-02-17] MEDS: DIPHENHYDRAMINE 12.5MG/5ML UDC PO SCH (08:52)
[2019-02-17] MEDS: FUROSEMIDE 40MG/4ML VIAL IVP SCH (08:52)
[2019-02-17] MEDS: AMLODIPINE 5MG TABLET PO SCH (08:52)
[2019-02-17] MEDS: HYDRALAZINE HCL 10MG TABLET PO SCH (08:53)
[2019-02-17] MEDS: LISINOPRIL 20MG TABLET PO SCH (08:53)
[2019-02-17] MEDS: INSULIN LISPRO 100 UNITS/ML SUBCUT SCH ×6 (08:54→18:32)
[2019-02-17] MEDS: ENOXAPARIN 30MG/0.3ML SYR SUBCUT SCH (08:55)
[2019-02-17] MEDS ORDERED: FLUTICASONE PROPIONATE 50MCG/SPRAY BOTTLE BOTHNSTRLS SCH ×2 (11:00→21:00)
[2019-02-17] MEDS: INSULIN GLARGINE UD 100 UNITS/ML SYR SUBCUT SCH (11:50)
[2019-02-17 12:00] VITALS: BP 131/80
[2019-02-17 12:07] VITALS: BP 131/80
[2019-02-17] MEDS ORDERED: HYDR-4001 MT (13:04)
[2019-02-17 15:20] VITALS: BP 142/80
[2019-02-17] MEDS: MONTELUKAST SODIUM 10MG TABLET PO SCH (18:31)
== END 2019-02-17 19:30 | disposition home or self-care (01) | DRG 189 ==
LOC: ER 17:21 → EDBEDREQ 19:31 → ENRESERV 23:13 → 7WST 02-06 00:54
PROVIDERS: ADMIT Internal Medicine; ATTEND Internal Medicine
PROC: 02HV33Z Insertion of Infusion Device into Superior Vena Cava, Percutaneous Approach (ICD-10-PCS; 2019-02-09)
PROC: B548ZZA Ultrasonography of Superior Vena Cava, Guidance (ICD-10-PCS; 2019-02-09)
PROC: B5181ZA Fluoroscopy of Superior Vena Cava using Low Osmolar Contrast, Guidance (ICD-10-PCS; 2019-02-09)
PROC: 5A09357 Assistance with Respiratory Ventilation, Less than 24 Consecutive Hours, Continuous Positive Airway Pressure (ICD-10-PCS; principal; 2019-02-15)
PROC: 5A09357 Assistance with Respiratory Ventilation, Less than 24 Consecutive Hours, Continuous Positive Airway Pressure (ICD-10-PCS; 2019-02-16)
PROC: 5A09357 Assistance with Respiratory Ventilation, Less than 24 Consecutive Hours, Continuous Positive Airway Pressure (ICD-10-PCS; 2019-02-17)
DX: J96.00 Acute respiratory failure, unspecified whether with hypoxia or hypercapnia (principal); J44.1 Chronic obstructive pulmonary disease with (acute) exacerbation; I50.32 Chronic diastolic (congestive) heart failure; E44.1 Mild protein-calorie malnutrition; B37.0 Candidal stomatitis; E66.2 Morbid (severe) obesity with alveolar hypoventilation; J06.9 Acute upper respiratory infection, unspecified; E11.9 Type 2 diabetes mellitus without complications; E78.5 Hyperlipidemia, unspecified; G89.29 Other chronic pain; I11.0 Hypertensive heart disease with heart failure; K21.9 Gastro-esophageal reflux disease without esophagitis; M10.9 Gout, unspecified; M19.90 Unspecified osteoarthritis, unspecified site; M48.061 Spinal stenosis, lumbar region without neurogenic claudication; M54.9 Dorsalgia, unspecified; R74.0 Nonspecific elevation of levels of transaminase and lactic acid dehydrogenase [LDH]; E78.00 Pure hypercholesterolemia, unspecified; I89.0 Lymphedema, not elsewhere classified; Z90.49 Acquired absence of other specified parts of digestive tract; Z99.81 Dependence on supplemental oxygen; Z88.6 Allergy status to analgesic agent; Z79.899 Other long term (current) drug therapy
CPT/HCPCS: 36415; 36573; 71045; 71250; 76937; 80048; 80053; 80305; 82962; 83880; 84484; 85025; 86308; 86705; 86709; 86803; 87070; 87106; 87340; 87389; 87804; 93005; 94640; 94644; 94660; 96374; 97110; 97162; 97530; 99285; C1725; J0360; J1650; J1815; J1940; J2270; J2543; J2920; J2930; J7040; J7060; J7512; J7608; J7611; J7620; Q0163

== ENCOUNTER 2019-05-03 08:46 | Inpatient (IN) | payer MEDICARE, MEDICAID ==
[~2019-05-03] VITALS: Ht 180.3 cm; Wt 127.9 kg
[~2019-05-03 08:46] MED LIST changes: +OMEP20CA14 PO; -OMEP20CA5 PO
[2019-05-03 09:46] LABS: BASOPHILS % 1.5 % (0.0-2.0); EOSINOPHILS % 4.2 % (0.0-5.0); HEMATOCRIT. 46.6 % (42.0-52.0); HEMOGLOBIN. 15.3 g/dL (14.0-18.0); LYMPHOCYTES % 23.2 % (20.0-50.0); MEAN CORPUSCULAR HEMOGLOBIN 29.6 pg (28.0-32.0); MEAN CORPUSCULAR VOLUME 89.9 fL (80.0-94.0); MEAN PLATELET VOLUME 9.5 fl (7.4-10.4); MONOCYTES % 9.9 % (2.0-8.0); NEUTROPHILS % 61.2 % (40.0-76.0); PLATELET 157 x1000/uL (130-400); RED BLOOD CELL COUNT 5.18 mill/uL (4.7-6.1); RED CELL DISTRIBUTION WIDTH 16.4 % (11.6-14.6)
[2019-05-03 09:56] LABS: CHLORIDE 101 mEq/L (98-107)
[2019-05-03] MEDS ORDERED: SODIUM CHLORIDE 0.9% 2,000 ML IV ONE (10:15)
[2019-05-03] MEDS ORDERED: OMEPRAZOLE 20MG CAPSULE EXTENDED RELEASE PO SCH (14:30)
[2019-05-03 15:37] LABS: *AMPHETAMINES SCREEN URINE NEGATIVE (NEGATIVE); *BARBITURATES SCREEN URINE NEGATIVE (NEGATIVE); *BENZODIAZEPINES SCREEN URINE PRESUMTIVE POSITIVE (NEGATIVE); *COCAINE SCREEN URINE NEGATIVE (NEGATIVE); CANNABINOID URINE SCREEN NEGATIVE (NEGATIVE); PHENCYCLIDINE URINE SCREEN NEGATIVE (NEGATIVE)
[2019-05-03 15:38] LABS: METHADONE URINE SCREEN NEGATIVE (NEGATIVE); OPIATES URINE SCREEN PRESUMTIVE POSITIVE (NEGATIVE)
[2019-05-03] MEDS ORDERED: DOCUSATE SODIUM 100MG CAPSULE PO PRN (19:00)
[2019-05-03] MEDS ORDERED: ACETAMINOPHEN 325MG TABLET PO PRN (19:00)
[2019-05-03] MEDS ORDERED: GUAIFENESIN 200MG/10ML SUGAR FREE UDC PO PRN (19:00)
[2019-05-03] MEDS ORDERED: MAGNESIUM/ALUMINUM HYDROXIDE/SIMETHICONE 30ML UDC PO PRN (19:00)
[2019-05-03] MEDS ORDERED: DILTIAZEM HCL 5MG/ML 5ML VIAL IV SCH (19:00)
[2019-05-03] MEDS ORDERED: ZOLPIDEM TARTRATE 5MG TABLET PO PRN (19:00)
[2019-05-03] MEDS ORDERED: DIPHENHYDRAMINE 50MG/ML VIAL IV PRN (19:00)
[2019-05-03] MEDS ORDERED: ONDANSETRON HCL 4MG/2ML INJ IV PRN (19:00)
[2019-05-03] MEDS ORDERED: METHYLPREDNISOLONE SOD SUCC 40 MG/ML VIAL IV SCH (19:15)
[2019-05-03] MEDS ORDERED: MORPHINE SULFATE 4 MG/ML CPJ (NOT FOR IM USE) IV NR (21:07)
[2019-05-03] MEDS ORDERED: HYDRALAZINE 20MG/ML VIAL IV PRN (21:15)
[2019-05-03 22:45] VITALS: BP 147/84
[2019-05-03] MEDS ORDERED: FUROSEMIDE 40MG/4ML VIAL IVP NR (23:06)
[2019-05-03] MEDS ORDERED: DEXTROSE 50% WATER 50ML SYRINGE IV PRN (23:13)
[2019-05-03] MEDS ORDERED: DIPHENHYDRAMINE 25MG CAPSULE PO PRN (23:14)
[2019-05-04] VITALS (11 sets, daily range): BP systolic 105–157; BP diastolic 59–99
[2019-05-04] MEDS: DILTIAZEM HCL 30MG TABLET PO SCH ×2 (00:15→06:29)
[2019-05-04] MEDS: MORPHINE SULFATE 4 MG/ML CPJ (NOT FOR IM USE) IV PRN ×3 (01:26→18:20)
[2019-05-04] MEDS: DIAZEPAM 5 MG TABLET PO PRN (03:59)
[2019-05-04] MEDS: OMEPRAZOLE 20MG CAPSULE EXTENDED RELEASE PO SCH ×2 (06:28→21:30)
[2019-05-04] MEDS: SODIUM CHLORIDE 0.9% INJ 3ML FLUSH IVF SCH ×3 (06:29→21:30)
[2019-05-04] MEDS: BLOOD SUGAR DIAGNOSTIC STRIP TEST SCH ×4 (06:34→21:30)
[2019-05-04] MEDS: BUDESONIDE 0.5MG/2ML NEB HHN SCH ×2 (07:48→20:20)
[2019-05-04] MEDS: IPRATROPIUM BROMIDE (0.02%) 0.5MG/2.5ML NEB HHN PRN (07:48)
[2019-05-04] MEDS: INSULIN LISPRO 100 UNITS/ML SUBCUT SCH ×4 (08:14→21:46)
[2019-05-04] MEDS: METFORMIN HCL 500MG TABLET PO SCH ×2 (08:15→17:42)
[2019-05-04] MEDS: ALLOPURINOL 300 MG TABLET PO SCH (08:15)
[2019-05-04] MEDS: COLCHICINE 0.6MG TABLET PO SCH (08:15)
[2019-05-04] MEDS: FUROSEMIDE 40MG TABLET PO SCH (08:15)
[2019-05-04] MEDS: LISINOPRIL 20MG TABLET PO SCH ×2 (08:15→08:54)
[2019-05-04] MEDS ORDERED: FUROSEMIDE 40MG/4ML VIAL IVP SCH (09:00)
[2019-05-04] MEDS ORDERED: ENOXAPARIN 30MG/0.3ML SYR SUBCUT SCH ×2 (09:00→21:00)
[2019-05-04] MEDS: DILTIAZEM HCL 60MG TABLET PO SCH ×3 (12:14→23:19)
[2019-05-04] MEDS: HYDROCODONE/ACETAMINOPHEN 10/325MG TABLET PO PRN (23:27)
[2019-05-04 23:30] LABS: INR 1.1
[2019-05-05] VITALS (12 sets, daily range): BP systolic 115–138; BP diastolic 68–87
[2019-05-05] MEDS: ENOXAPARIN 150MG/ML SYR SUBCUT SCH ×2 (02:10→13:19)
[2019-05-05] MEDS: DILTIAZEM HCL 60MG TABLET PO SCH (06:00)
[2019-05-05] MEDS: OMEPRAZOLE 20MG CAPSULE EXTENDED RELEASE PO SCH (06:01)
[2019-05-05] MEDS: SODIUM CHLORIDE 0.9% INJ 3ML FLUSH IVF SCH ×3 (06:01→22:43)
[2019-05-05 06:47] LABS: BASOPHILS % 0.6 % (0.0-2.0); EOSINOPHILS % 0.9 % (0.0-5.0); HEMOGLOBIN. 15.5 g/dL (14.0-18.0); MEAN CORPUSCULAR HEMOGLOBIN 29.1 pg (28.0-32.0); MEAN PLATELET VOLUME 10.3 fl (7.4-10.4); MONOCYTES % 6.5 % (2.0-8.0); PLATELET 159 x1000/uL (130-400); RED BLOOD CELL COUNT 5.33 mill/uL (4.7-6.1); RED CELL DISTRIBUTION WIDTH 16.1 % (11.6-14.6)
[2019-05-05] MEDS: BLOOD SUGAR DIAGNOSTIC STRIP TEST SCH ×4 (06:50→21:14)
[2019-05-05] MEDS: INSULIN LISPRO 100 UNITS/ML SUBCUT SCH ×4 (07:20→21:13)
[2019-05-05 08:19] LABS: CHLORIDE 95 mEq/L (98-107)
[2019-05-05] MEDS: BUDESONIDE 0.5MG/2ML NEB HHN SCH ×2 (08:48→20:01)
[2019-05-05] MEDS: METFORMIN HCL 500MG TABLET PO SCH ×2 (09:10→17:51)
[2019-05-05] MEDS: ALLOPURINOL 300 MG TABLET PO SCH (09:10)
[2019-05-05] MEDS: FUROSEMIDE 40MG TABLET PO SCH (09:11)
[2019-05-05] MEDS: COLCHICINE 0.6MG TABLET PO SCH (09:11)
[2019-05-05] MEDS: LISINOPRIL 20MG TABLET PO SCH (09:12)
[2019-05-05] MEDS: DILTIAZEM HCL 90MG TABLET PO SCH ×2 (11:52→17:50)
[2019-05-05] MEDS: MORPHINE SULFATE 4 MG/ML CPJ (NOT FOR IM USE) IV PRN ×2 (15:41→22:44)
[2019-05-05] MEDS: HYDROCODONE/ACETAMINOPHEN 10/325MG TABLET PO PRN (19:42)
[2019-05-05] MEDS: IPRATROPIUM BROMIDE (0.02%) 0.5MG/2.5ML NEB HHN PRN (20:01)
[2019-05-05] MEDS ORDERED: CARVEDILOL 6.25 MG TABLET PO SCH (21:00)
[2019-05-05] MEDS ORDERED: METOPROLOL TARTRATE 25MG TABLET PO SCH (21:00)
[2019-05-05] MEDS: CARVEDILOL 12.5MG TABLET PO SCH (21:14)
[2019-05-05] MEDS: FAMOTIDINE 20MG TABLET PO SCH (21:27)
[2019-05-06] VITALS (12 sets, daily range): BP systolic 97–143; BP diastolic 43–78
[2019-05-06] MEDS: DILTIAZEM HCL 90MG TABLET PO SCH ×4 (01:46→17:02)
[2019-05-06] MEDS: ENOXAPARIN 150MG/ML SYR SUBCUT SCH ×2 (01:49→13:48)
[2019-05-06] MEDS: SODIUM CHLORIDE 0.9% INJ 3ML FLUSH IVF SCH ×2 (06:28→13:36)
[2019-05-06] MEDS: BLOOD SUGAR DIAGNOSTIC STRIP TEST SCH ×4 (06:28→21:08)
[2019-05-06] MEDS: INSULIN LISPRO 100 UNITS/ML SUBCUT SCH ×4 (07:20→21:00)
[2019-05-06] MEDS: ALLOPURINOL 300 MG TABLET PO SCH (08:36)
[2019-05-06] MEDS: METFORMIN HCL 500MG TABLET PO SCH ×2 (08:36→17:02)
[2019-05-06] MEDS: COLCHICINE 0.6MG TABLET PO SCH (08:36)
[2019-05-06] MEDS: FUROSEMIDE 40MG TABLET PO SCH (08:36)
[2019-05-06] MEDS: CARVEDILOL 12.5MG TABLET PO SCH (08:37)
[2019-05-06] MEDS: FAMOTIDINE 20MG TABLET PO SCH ×2 (08:46→21:08)
[2019-05-06] MEDS: LISINOPRIL 20MG TABLET PO SCH (08:47)
[2019-05-06] MEDS: BUDESONIDE 0.5MG/2ML NEB HHN SCH ×2 (09:18→21:28)
[2019-05-06 09:22] LABS: BASOPHILS % 1.3 % (0.0-2.0); EOSINOPHILS % 1.5 % (0.0-5.0); HEMATOCRIT. 45.9 % (42.0-52.0); HEMOGLOBIN. 15.2 g/dL (14.0-18.0); LYMPHOCYTES % 21.2 % (20.0-50.0); MEAN CORPUSCULAR HEMOGLOBIN 29.5 pg (28.0-32.0); MEAN CORPUSCULAR VOLUME 89.4 fL (80.0-94.0); MEAN PLATELET VOLUME 10.1 fl (7.4-10.4); MONOCYTES % 8.8 % (2.0-8.0); NEUTROPHILS % 67.2 % (40.0-76.0); PLATELET 143 x1000/uL (130-400); RED BLOOD CELL COUNT 5.14 mill/uL (4.7-6.1); RED CELL DISTRIBUTION WIDTH 16.2 % (11.6-14.6)
[2019-05-06] MEDS: MORPHINE SULFATE 4 MG/ML CPJ (NOT FOR IM USE) IV PRN ×2 (10:17→18:56)
[2019-05-06] MEDS ORDERED: MAGNESIUM 2 G PREMIX 50 ML IV NR (18:00)
[2019-05-06] MEDS: METOPROLOL TARTRATE 25MG TABLET PO SCH (21:08)
[2019-05-06] MEDS: IPRATROPIUM BROMIDE (0.02%) 0.5MG/2.5ML NEB HHN PRN (23:32)
[2019-05-07] VITALS (12 sets, daily range): BP systolic 94–149; BP diastolic 49–96
[2019-05-07] MEDS: SODIUM CHLORIDE 0.9% INJ 3ML FLUSH IVF SCH ×4 (00:30→22:33)
[2019-05-07] MEDS: DILTIAZEM HCL 90MG TABLET PO SCH ×4 (00:30→17:22)
[2019-05-07] MEDS: ENOXAPARIN 150MG/ML SYR SUBCUT SCH ×2 (02:20→13:55)
[2019-05-07] MEDS: HYDROCODONE/ACETAMINOPHEN 10/325MG TABLET PO PRN (06:00)
[2019-05-07] MEDS: BLOOD SUGAR DIAGNOSTIC STRIP TEST SCH ×4 (06:28→20:53)
[2019-05-07 06:31] LABS: BASOPHILS % 1.2 % (0.0-2.0); EOSINOPHILS % 0.9 % (0.0-5.0); HEMATOCRIT. 45.3 % (42.0-52.0); HEMOGLOBIN. 15.1 g/dL (14.0-18.0); LYMPHOCYTES % 18.1 % (20.0-50.0); MEAN CORPUSCULAR HEMOGLOBIN 29.7 pg (28.0-32.0); MEAN CORPUSCULAR VOLUME 89.3 fL (80.0-94.0); MEAN PLATELET VOLUME 10.1 fl (7.4-10.4); MONOCYTES % 7.8 % (2.0-8.0); PLATELET 136 x1000/uL (130-400); RED BLOOD CELL COUNT 5.07 mill/uL (4.7-6.1)
[2019-05-07] MEDS: METFORMIN HCL 500MG TABLET PO SCH ×2 (07:54→17:22)
[2019-05-07] MEDS: INSULIN LISPRO 100 UNITS/ML SUBCUT SCH ×4 (07:55→20:54)
[2019-05-07] MEDS ORDERED: FAMOTIDINE 40MG TABLET PO SCH (09:00)
[2019-05-07] MEDS: LISINOPRIL 20MG TABLET PO SCH (09:04)
[2019-05-07] MEDS: ALLOPURINOL 300 MG TABLET PO SCH (09:05)
[2019-05-07] MEDS: FUROSEMIDE 40MG TABLET PO SCH (09:05)
[2019-05-07] MEDS: METOPROLOL TARTRATE 25MG TABLET PO SCH ×3 (09:05→21:59)
[2019-05-07] MEDS: COLCHICINE 0.6MG TABLET PO SCH (09:05)
[2019-05-07] MEDS: MORPHINE SULFATE 4 MG/ML CPJ (NOT FOR IM USE) IV PRN (09:23)
[2019-05-07] MEDS: IPRATROPIUM BROMIDE (0.02%) 0.5MG/2.5ML NEB HHN PRN (21:07)
[2019-05-08] VITALS (12 sets, daily range): BP systolic 108–159; BP diastolic 45–75
[2019-05-08] MEDS: ENOXAPARIN 150MG/ML SYR SUBCUT SCH ×2 (01:46→15:11)
[2019-05-08] MEDS: MORPHINE SULFATE 4 MG/ML CPJ (NOT FOR IM USE) IV PRN ×5 (02:35→22:16)
[2019-05-08] MEDS: DIAZEPAM 5 MG TABLET PO PRN (04:53)
[2019-05-08] MEDS: DILTIAZEM HCL 90MG TABLET PO SCH ×5 (05:56→23:31)
[2019-05-08] MEDS: SODIUM CHLORIDE 0.9% INJ 3ML FLUSH IVF SCH ×3 (05:56→22:43)
[2019-05-08] MEDS: BLOOD SUGAR DIAGNOSTIC STRIP TEST SCH ×4 (06:02→21:00)
[2019-05-08] MEDS: METFORMIN HCL 500MG TABLET PO SCH (07:59)
[2019-05-08] MEDS: HYDROCODONE/ACETAMINOPHEN 10/325MG TABLET PO PRN ×2 (07:59→15:59)
[2019-05-08] MEDS: INSULIN LISPRO 100 UNITS/ML SUBCUT SCH ×4 (08:00→21:10)
[2019-05-08] MEDS: LISINOPRIL 20MG TABLET PO SCH (09:53)
[2019-05-08] MEDS: COLCHICINE 0.6MG TABLET PO SCH (09:53)
[2019-05-08] MEDS: FAMOTIDINE 40MG TABLET PO SCH (09:53)
[2019-05-08] MEDS: ALLOPURINOL 300 MG TABLET PO SCH (09:53)
[2019-05-08] MEDS: METOPROLOL TARTRATE 25MG TABLET PO SCH ×2 (09:53→20:56)
[2019-05-08] MEDS: FUROSEMIDE 40MG TABLET PO SCH (09:53)
[2019-05-08 16:26] LABS: BASOPHILS % 1.3 % (0.0-2.0); EOSINOPHILS % 2.6 % (0.0-5.0); HEMATOCRIT. 42.2 % (42.0-52.0); HEMOGLOBIN. 14.2 g/dL (14.0-18.0); LYMPHOCYTES % 15.5 % (20.0-50.0); MEAN CORPUSCULAR HEMOGLOBIN 29.5 pg (28.0-32.0); MEAN CORPUSCULAR VOLUME 88.1 fL (80.0-94.0); MEAN PLATELET VOLUME 10.9 fl (7.4-10.4); MONOCYTES % 6.5 % (2.0-8.0); NEUTROPHILS % 74.1 % (40.0-76.0); PLATELET 139 x1000/uL (130-400); RED CELL DISTRIBUTION WIDTH 15.8 % (11.6-14.6)
[2019-05-09] VITALS (12 sets, daily range): BP systolic 101–161; BP diastolic 49–84
[2019-05-09] MEDS: ENOXAPARIN 150MG/ML SYR SUBCUT SCH ×2 (01:02→14:00)
[2019-05-09] MEDS: IPRATROPIUM BROMIDE (0.02%) 0.5MG/2.5ML NEB HHN PRN (01:39)
[2019-05-09] MEDS ORDERED: MORPHINE SULFATE 4 MG/ML CPJ (NOT FOR IM USE) IV PRN (03:15)
[2019-05-09] MEDS: DILTIAZEM HCL 90MG TABLET PO SCH ×4 (05:13→23:35)
[2019-05-09] MEDS: SODIUM CHLORIDE 0.9% INJ 3ML FLUSH IVF SCH ×3 (05:13→21:05)
[2019-05-09 06:39] LABS: BASOPHILS % 0.5 % (0.0-2.0); EOSINOPHILS % 3.5 % (0.0-5.0); HEMATOCRIT. 40.7 % (42.0-52.0); HEMOGLOBIN. 13.7 g/dL (14.0-18.0); LYMPHOCYTES % 19.3 % (20.0-50.0); MEAN CORPUSCULAR VOLUME 89.1 fL (80.0-94.0); MEAN PLATELET VOLUME 10.4 fl (7.4-10.4); MONOCYTES % 9.2 % (2.0-8.0); NEUTROPHILS % 67.5 % (40.0-76.0); PLATELET 130 x1000/uL (130-400); RED BLOOD CELL COUNT 4.57 mill/uL (4.7-6.1); RED CELL DISTRIBUTION WIDTH 15.9 % (11.6-14.6)
[2019-05-09 06:55] LABS: CHLORIDE 99 mEq/L (98-107)
[2019-05-09] MEDS: BLOOD SUGAR DIAGNOSTIC STRIP TEST SCH ×4 (06:57→21:05)
[2019-05-09] MEDS: INSULIN LISPRO 100 UNITS/ML SUBCUT SCH ×4 (06:57→21:00)
[2019-05-09] MEDS: LISINOPRIL 20MG TABLET PO SCH (08:18)
[2019-05-09] MEDS: COLCHICINE 0.6MG TABLET PO SCH (08:18)
[2019-05-09] MEDS: FAMOTIDINE 40MG TABLET PO SCH (08:19)
[2019-05-09] MEDS: FUROSEMIDE 40MG TABLET PO SCH (08:20)
[2019-05-09] MEDS: METOPROLOL TARTRATE 25MG TABLET PO SCH ×2 (08:20→21:05)
[2019-05-09] MEDS: ALLOPURINOL 300 MG TABLET PO SCH (08:21)
[2019-05-09] MEDS: LISINOPRIL 40MG TABLET PO SCH (09:00)
[2019-05-10] VITALS (9 sets, daily range): BP systolic 98–141; BP diastolic 40–103
[2019-05-10] MEDS: ENOXAPARIN 150MG/ML SYR SUBCUT SCH ×3 (01:24→17:31)
[2019-05-10] MEDS: ACETAMINOPHEN 325MG TABLET PO PRN (04:58)
[2019-05-10] MEDS: DILTIAZEM HCL 90MG TABLET PO SCH ×3 (05:04→23:52)
[2019-05-10] MEDS: SODIUM CHLORIDE 0.9% INJ 3ML FLUSH IVF SCH ×3 (05:04→21:01)
[2019-05-10] MEDS: INSULIN LISPRO 100 UNITS/ML SUBCUT SCH ×4 (05:57→20:51)
[2019-05-10] MEDS: BLOOD SUGAR DIAGNOSTIC STRIP TEST SCH ×4 (05:57→20:50)
[2019-05-10] MEDS: METOPROLOL TARTRATE 25MG TABLET PO SCH ×4 (08:05→21:02)
[2019-05-10] MEDS: COLCHICINE 0.6MG TABLET PO SCH ×3 (08:05→12:48)
[2019-05-10] MEDS: FUROSEMIDE 40MG TABLET PO SCH ×3 (08:06→12:43)
[2019-05-10] MEDS: LISINOPRIL 40MG TABLET PO SCH ×3 (08:06→12:52)
[2019-05-10] MEDS: ALLOPURINOL 300 MG TABLET PO SCH ×3 (08:07→12:49)
[2019-05-10] MEDS: FAMOTIDINE 40MG TABLET PO SCH ×3 (08:07→12:54)
[2019-05-11] VITALS: BP 148/111
[2019-05-11 01:00] VITALS: BP 135/78
[2019-05-11] MEDS: ACETAMINOPHEN 325MG TABLET PO PRN ×3 (02:21→20:40)
[2019-05-11 04:00] VITALS: BP 128/73
[2019-05-11] MEDS: SODIUM CHLORIDE 0.9% INJ 3ML FLUSH IVF SCH ×3 (05:57→23:35)
[2019-05-11] MEDS: ENOXAPARIN 150MG/ML SYR SUBCUT SCH (06:00)
[2019-05-11] MEDS: BLOOD SUGAR DIAGNOSTIC STRIP TEST SCH ×4 (06:06→20:50)
[2019-05-11] MEDS: DILTIAZEM HCL 90MG TABLET PO SCH ×4 (06:15→23:35)
[2019-05-11] MEDS: INSULIN LISPRO 100 UNITS/ML SUBCUT SCH ×4 (06:20→20:50)
[2019-05-11] MEDS: METOPROLOL TARTRATE 25MG TABLET PO SCH ×2 (08:20→20:40)
[2019-05-11] MEDS: LISINOPRIL 40MG TABLET PO SCH (08:20)
[2019-05-11] MEDS: FUROSEMIDE 40MG TABLET PO SCH (08:20)
[2019-05-11] MEDS: COLCHICINE 0.6MG TABLET PO SCH (08:20)
[2019-05-11] MEDS: ALLOPURINOL 300 MG TABLET PO SCH (08:20)
[2019-05-11] MEDS: FAMOTIDINE 40MG TABLET PO SCH ×2 (09:00→09:15)
[2019-05-11 12:00] VITALS: BP 128/62
[2019-05-11 16:00] VITALS: BP 115/70
[2019-05-11] MEDS: APIXABAN 5 MG TABLET PO SCH (16:36)
[2019-05-11 20:00] VITALS: BP 134/48
[2019-05-12] VITALS: BP 114/50
[2019-05-12 04:00] VITALS: BP 116/67
[2019-05-12] MEDS: SODIUM CHLORIDE 0.9% INJ 3ML FLUSH IVF SCH ×3 (05:20→21:59)
[2019-05-12] MEDS: DILTIAZEM HCL 90MG TABLET PO SCH ×3 (05:20→17:21)
[2019-05-12] MEDS: BLOOD SUGAR DIAGNOSTIC STRIP TEST SCH ×4 (06:45→21:34)
[2019-05-12] MEDS: INSULIN LISPRO 100 UNITS/ML SUBCUT SCH ×4 (07:15→21:00)
[2019-05-12 08:00] VITALS: BP 114/59
[2019-05-12] MEDS: APIXABAN 5 MG TABLET PO SCH ×2 (08:57→17:20)
[2019-05-12] MEDS: COLCHICINE 0.6MG TABLET PO SCH (08:57)
[2019-05-12] MEDS: ALLOPURINOL 300 MG TABLET PO SCH (08:57)
[2019-05-12] MEDS: METOPROLOL TARTRATE 25MG TABLET PO SCH ×2 (08:58→21:58)
[2019-05-12] MEDS: LISINOPRIL 40MG TABLET PO SCH (08:58)
[2019-05-12] MEDS: FUROSEMIDE 40MG TABLET PO SCH (08:58)
[2019-05-12] MEDS: FAMOTIDINE 40MG TABLET PO SCH (09:00)
[2019-05-12 12:00] VITALS: BP 116/36
[2019-05-12 16:00] VITALS: BP 141/50
[2019-05-12 20:29] VITALS: BP 136/53
[2019-05-12] MEDS: TRAMADOL 50MG TABLET PO PRN (21:59)
[2019-05-13 00:12] VITALS: BP 110/41
[2019-05-13 03:41] VITALS: BP 100/71
[2019-05-13] MEDS: TRAMADOL 50MG TABLET PO PRN ×2 (04:01→12:30)
[2019-05-13] MEDS: BLOOD SUGAR DIAGNOSTIC STRIP TEST SCH ×2 (06:14→12:28)
[2019-05-13] MEDS: INSULIN LISPRO 100 UNITS/ML SUBCUT SCH ×2 (06:14→12:15)
[2019-05-13] MEDS: DILTIAZEM HCL 90MG TABLET PO SCH ×3 (06:42→12:00)
[2019-05-13] MEDS: SODIUM CHLORIDE 0.9% INJ 3ML FLUSH IVF SCH (06:42)
[2019-05-13 08:00] VITALS: BP 133/50
[2019-05-13] MEDS: METOPROLOL TARTRATE 25MG TABLET PO SCH (08:43)
[2019-05-13] MEDS: APIXABAN 5 MG TABLET PO SCH (08:43)
[2019-05-13] MEDS: ALLOPURINOL 300 MG TABLET PO SCH (08:43)
[2019-05-13] MEDS: LISINOPRIL 40MG TABLET PO SCH (08:44)
[2019-05-13] MEDS: COLCHICINE 0.6MG TABLET PO SCH (08:44)
[2019-05-13] MEDS: FUROSEMIDE 40MG TABLET PO SCH ×2 (08:44→09:00)
[2019-05-13] MEDS ORDERED: FAMOTIDINE 20MG TABLET PO SCH (09:00)
[2019-05-13 12:00] VITALS: BP 120/54
[2019-05-13 12:49] VITALS: BP 120/54
== END 2019-05-13 15:19 | disposition home health service (06) | DRG 308 ==
LOC: ER 09:23 → 3WST 13:24 → EDBEDREQSVC 18:01 → ENRESERV 21:24 → 5WST 05-10 13:32
PROVIDERS: ADMIT Internal Medicine; ATTEND Internal Medicine
PROC: 5A09357 Assistance with Respiratory Ventilation, Less than 24 Consecutive Hours, Continuous Positive Airway Pressure (ICD-10-PCS; principal; 2019-05-04)
PROC: 5A09357 Assistance with Respiratory Ventilation, Less than 24 Consecutive Hours, Continuous Positive Airway Pressure (ICD-10-PCS; 2019-05-06)
DX: I48.92 Unspecified atrial flutter (principal); I50.43 Acute on chronic combined systolic (congestive) and diastolic (congestive) heart failure; J98.11 Atelectasis; N17.9 Acute kidney failure, unspecified; I47.1 Supraventricular tachycardia; I43 Cardiomyopathy in diseases classified elsewhere; E11.621 Type 2 diabetes mellitus with foot ulcer; E66.01 Morbid (severe) obesity due to excess calories; J44.9 Chronic obstructive pulmonary disease, unspecified; Y99.8 Other external cause status; I11.0 Hypertensive heart disease with heart failure; R07.89 Other chest pain; E11.42 Type 2 diabetes mellitus with diabetic polyneuropathy; E78.5 Hyperlipidemia, unspecified; I25.10 Atherosclerotic heart disease of native coronary artery without angina pectoris; I89.0 Lymphedema, not elsewhere classified; M10.9 Gout, unspecified; S90.821A Blister (nonthermal), right foot, initial encounter; L97.519 Non-pressure chronic ulcer of other part of right foot with unspecified severity; D72.829 Elevated white blood cell count, unspecified; E11.51 Type 2 diabetes mellitus with diabetic peripheral angiopathy without gangrene; I87.8 Other specified disorders of veins; M19.079 Primary osteoarthritis, unspecified ankle and foot; D64.9 Anemia, unspecified; F17.200 Nicotine dependence, unspecified, uncomplicated; G89.4 Chronic pain syndrome; S90.822A Blister (nonthermal), left foot, initial encounter; K21.9 Gastro-esophageal reflux disease without esophagitis; M54.9 Dorsalgia, unspecified; R74.0 Nonspecific elevation of levels of transaminase and lactic acid dehydrogenase [LDH]; R26.9 Unspecified abnormalities of gait and mobility; X58.XXXA Exposure to other specified factors, initial encounter; Y93.89 Activity, other specified; Y92.89 Other specified places as the place of occurrence of the external cause; Z99.81 Dependence on supplemental oxygen; Z88.6 Allergy status to analgesic agent; Z88.8 Allergy status to other drugs, medicaments and biological substances; Z79.84 Long term (current) use of oral hypoglycemic drugs; Z79.899 Other long term (current) drug therapy; Z90.49 Acquired absence of other specified parts of digestive tract; Z68.39 Body mass index [BMI] 39.0-39.9, adult
CPT/HCPCS: 10060; 36415; 71045; 71275; 80048; 80053; 80305; 82962; 83036; 83735; 83880; 84443; 84480; 84484; 85025; 92523; 93005; 93306; 93970; 94640; 94660; 96360; 97022; 97162; 97164; 97166; 97530; 97535; 99285; J1650; J1815; J1940; J2270; J2920; J3475; J3490; J7030; J7626; Q0163

== ENCOUNTER 2019-06-14 05:18 | Inpatient (IN) | payer MEDICARE, MEDICAID ==
[~2019-06-14] VITALS: Ht 180.3 cm; Wt 140.2 kg
[2019-06-14] MEDS ORDERED: IPRATROPIUM BROMIDE (0.02%) 0.5MG/2.5ML NEB HHN STA (05:54)
[2019-06-14] MEDS ORDERED: ALBUTEROL (0.083%) 2.5MG/3ML NEB HHN STA (05:54)
[2019-06-14] MEDS ORDERED: METHYLPREDNISOLONE SOD SUCC 125 MG/2 ML VIAL IV ONE (06:15)
[2019-06-14 06:22] LABS: BASOPHILS % 0.7 % (0.0-2.0); EOSINOPHILS % 5.6 % (0.0-5.0); HEMATOCRIT. 47.8 % (42.0-52.0); HEMOGLOBIN. 15.8 g/dL (14.0-18.0); LYMPHOCYTES % 35.6 % (20.0-50.0); MEAN CORPUSCULAR HEMOGLOBIN 29.6 pg (28.0-32.0); MEAN CORPUSCULAR VOLUME 89.3 fL (80.0-94.0); MEAN PLATELET VOLUME 9.8 fl (7.4-10.4); MONOCYTES % 7.7 % (2.0-8.0); NEUTROPHILS % 50.4 % (40.0-76.0); PLATELET 168 x1000/uL (130-400); RED BLOOD CELL COUNT 5.35 mill/uL (4.7-6.1); RED CELL DISTRIBUTION WIDTH 15.7 % (11.6-14.6)
[2019-06-14 06:29] LABS: PROTHROMBIN TIME 11.3 sec (9.6-11.0)
[2019-06-14 06:34] LABS: CHLORIDE 103 mEq/L (98-107)
[2019-06-14 07:07] LABS: CLARITY URINE CLEAR (CLEAR); COLOR URINE YELLOW (YELLOW); KETONES URINE NEGATIVE (NEGATIVE); LEUKOCYTE ESTERASE URINE NEGATIVE (NEGATIVE); NITRITE URINE NEGATIVE (NEGATIVE); OCCULT BLOOD URINE NEGATIVE (NEGATIVE); PROTEIN URINE 1+ (NEGATIVE); SPECIFIC GRAVITY URINE 1.017 (1.005-1.030)
[2019-06-14] MEDS ORDERED: SODIUM CHLORIDE 0.9% 1,000 ML IV ONE (07:45)
[2019-06-14 08:13] LABS: BG BASE EXCESS 1.9 mmol/L (-2.0-2.0); BG CARBOXYHEMOGLOBIN 0.8 % (0.5-1.5); BG DEOXYHEMOGLOBIN 0.5 % (0.0-5.0); BG HCO3 ACT 29.6 mmol/L (22.0-26.0); BG METHEMOGLOBIN 0.3 % (0.0-1.5); BG OXYGEN SATURATION 99.5 % (92.0-98.5); BG OXYHEMOGLOBIN 98.4 % (94.0-97.0); BG PCO2 58.6 mmHg (35.0-45.0); BG PH 7.321 (7.350-7.450); BG PO2 202.9 mmHg (75.0-100.0); BG SAMPLE SITE RIGHT RADIAL; BG TOTAL HEMOGLOBIN 15.3 g/dL (12.0-18.0); BG VENT MODE MASK - NRB
[2019-06-14] MEDS ORDERED: DILTIAZEM HCL 5MG/ML 5ML VIAL IV ONE (09:30)
[2019-06-14] MEDS ORDERED: LORAZEPAM 1MG TABLET PO ONE (10:15)
[2019-06-14] MEDS ORDERED: ONDANSETRON HCL 4MG/2ML INJ IV PRN (11:15)
[2019-06-14] MEDS ORDERED: ALBUTEROL 6.7GM HFA INHALER ORI PRN (11:15)
[2019-06-14] MEDS ORDERED: DEXTROSE 50% WATER 50ML SYRINGE IV PRN (11:15)
[2019-06-14] MEDS ORDERED: ACETAMINOPHEN 325MG TABLET PO PRN (11:15)
[2019-06-14] MEDS ORDERED: FUROSEMIDE 40MG/4ML VIAL IVP ONE (11:30)
[2019-06-14] MEDS ORDERED: ENOXAPARIN 40MG/0.4ML SYR SUBCUT SCH (12:30)
[2019-06-14] MEDS ORDERED: CEFTRIAXONE 1 G PREMIX 50 ML IV NR (12:30)
[2019-06-14] MEDS ORDERED: AMLODIPINE 5MG TABLET PO SCH (13:00)
[2019-06-14] MEDS: BLOOD SUGAR DIAGNOSTIC STRIP TEST SCH ×3 (13:19→21:00)
[2019-06-14] MEDS ORDERED: METHYLPREDNISOLONE SOD SUCC 40 MG/ML VIAL IV SCH (14:00)
[2019-06-14 14:30] VITALS: BP 161/77
[2019-06-14 16:00] VITALS: BP 145/76
[2019-06-14] MEDS: HYDROCODONE/ACETAMINOPHEN 10/325MG TABLET PO PRN (18:57)
[2019-06-14] MEDS: INSULIN LISPRO 100 UNITS/ML SUBCUT SCH ×3 (19:03→22:49)
[2019-06-14] MEDS: AZITHROMYCIN 500 MG TABLET PO SCH (19:08)
[2019-06-14 20:00] VITALS: BP 154/83
[2019-06-14] MEDS ORDERED: INSULIN GLARGINE UD 100 UNITS/ML SYR SUBCUT SCH ×2 (22:00)
[2019-06-14] MEDS: INSULIN GLARGINE UD 100 UNITS/ML SYR SUBCUT SCH (22:50)
[2019-06-14] MEDS: AMLODIPINE 5MG TABLET PO SCH (22:58)
[2019-06-14] MEDS: METHYLPREDNISOLONE SOD SUCC 40 MG/ML VIAL IV SCH (22:59)
[2019-06-14] MEDS: ENOXAPARIN 40MG/0.4ML SYR SUBCUT SCH (23:00)
[2019-06-15] VITALS: BP 139/79
[2019-06-15] MEDS: ALBUTEROL 6.7GM HFA INHALER ORI PRN ×2 (02:50→23:34)
[2019-06-15] MEDS: METHYLPREDNISOLONE SOD SUCC 40 MG/ML VIAL IV SCH ×3 (06:25→22:01)
[2019-06-15] MEDS: BLOOD SUGAR DIAGNOSTIC STRIP TEST SCH ×4 (06:38→20:44)
[2019-06-15] MEDS: INSULIN LISPRO 100 UNITS/ML SUBCUT SCH ×7 (06:39→22:00)
[2019-06-15 08:00] VITALS: BP 129/71
[2019-06-15] MEDS ORDERED: AZITHROMYCIN 500 MG TABLET PO SCH (09:00)
[2019-06-15] MEDS ORDERED: CEFTRIAXONE 1 G PREMIX 50 ML IV SCH ×2 (09:00)
[2019-06-15] MEDS: FUROSEMIDE 40MG/4ML VIAL IVP SCH (09:29)
[2019-06-15] MEDS: AMLODIPINE 5MG TABLET PO SCH ×2 (09:29→20:45)
[2019-06-15] MEDS: ENOXAPARIN 40MG/0.4ML SYR SUBCUT SCH ×2 (09:29→20:46)
[2019-06-15] MEDS: AZITHROMYCIN 500 MG TABLET PO SCH (09:29)
[2019-06-15] MEDS: HYDROCODONE/ACETAMINOPHEN 10/325MG TABLET PO PRN ×2 (09:43→22:05)
[2019-06-15 12:00] VITALS: BP 154/92
[2019-06-15] MEDS: INSULIN GLARGINE UD 100 UNITS/ML SYR SUBCUT SCH ×2 (12:09→22:00)
[2019-06-15] MEDS ORDERED: ASCO-339 PO (12:33)
[2019-06-15] MEDS ORDERED: CYAN-33 MT (12:33)
[2019-06-15] MEDS ORDERED: OMEP20TA2 MT (12:34)
[2019-06-15] MEDS ORDERED: ALLO300T2 MT (12:35)
[2019-06-15] MEDS ORDERED: VITA-340 MT (12:35)
[2019-06-15] MEDS ORDERED: COLC0.6C3 PO (12:35)
[2019-06-15 16:00] VITALS: BP 144/91
[2019-06-15] MEDS: CEFTRIAXONE 1 G PREMIX 50 ML IV SCH (17:38)
[2019-06-15] MEDS: OMEPRAZOLE 20MG CAPSULE EXTENDED RELEASE PO SCH (17:38)
[2019-06-15 20:00] VITALS: BP 133/72
[2019-06-15] MEDS: ASCORBIC ACID 500 MG TABLET PO SCH (20:45)
[2019-06-16] VITALS: BP 150/80
[2019-06-16 04:00] VITALS: BP 143/68
[2019-06-16] MEDS: OMEPRAZOLE 20MG CAPSULE EXTENDED RELEASE PO SCH (06:02)
[2019-06-16] MEDS: METHYLPREDNISOLONE SOD SUCC 40 MG/ML VIAL IV SCH ×3 (06:02→21:00)
[2019-06-16] MEDS: BLOOD SUGAR DIAGNOSTIC STRIP TEST SCH ×4 (06:16→20:54)
[2019-06-16] MEDS: INSULIN LISPRO 100 UNITS/ML SUBCUT SCH ×7 (06:57→20:53)
[2019-06-16] MEDS: CYANOCOBALAMIN 1000MCG TABLET PO SCH (06:59)
[2019-06-16] MEDS: METFORMIN HCL 500MG TABLET PO SCH (07:00)
[2019-06-16 08:00] VITALS: BP 150/94
[2019-06-16] MEDS: ENOXAPARIN 40MG/0.4ML SYR SUBCUT SCH (08:35)
[2019-06-16] MEDS: FUROSEMIDE 40MG/4ML VIAL IVP SCH (08:35)
[2019-06-16] MEDS: LISINOPRIL 20MG TABLET PO SCH (08:36)
[2019-06-16] MEDS: COLCHICINE 0.6MG TABLET PO SCH (08:36)
[2019-06-16] MEDS: VITAMIN E 1,000 UNIT CAPSULE PO SCH (08:36)
[2019-06-16] MEDS: AZITHROMYCIN 500 MG TABLET PO SCH (08:36)
[2019-06-16] MEDS: ASCORBIC ACID 500 MG TABLET PO SCH ×2 (08:36→20:22)
[2019-06-16] MEDS: AMLODIPINE 5MG TABLET PO SCH ×2 (08:37→20:23)
[2019-06-16] MEDS: ALLOPURINOL 300 MG TABLET PO SCH (08:38)
[2019-06-16] MEDS: INSULIN GLARGINE UD 100 UNITS/ML SYR SUBCUT SCH ×2 (10:38→21:21)
[2019-06-16 12:00] VITALS: BP 142/84
[2019-06-16 12:02] LABS: HEMATOCRIT. 46.5 % (42.0-52.0); HEMOGLOBIN. 15.2 g/dL (14.0-18.0); MEAN CORPUSCULAR VOLUME 88.7 fL (80.0-94.0); PLATELET 157 x1000/uL (130-400); RED BLOOD CELL COUNT 5.24 mill/uL (4.7-6.1); RED CELL DISTRIBUTION WIDTH 15.6 % (11.6-14.6)
[2019-06-16] MEDS: DILTIAZEM HCL 30MG TABLET PO SCH ×3 (12:03→23:01)
[2019-06-16] MEDS: CEFTRIAXONE 1 G PREMIX 50 ML IV SCH (12:05)
[2019-06-16 12:11] LABS: CHLORIDE 98 mEq/L (98-107)
[2019-06-16] MEDS ORDERED: OMEPRAZOLE 20MG CAPSULE EXTENDED RELEASE PO SCH (12:30)
[2019-06-16 13:14] LABS: PLATELET ESTIMATE NORMAL
[2019-06-16] MEDS ORDERED: ENOXAPARIN 100MG/ML SYR SUBCUT NR (13:30)
[2019-06-16 16:00] VITALS: BP 132/76
[2019-06-16 20:00] VITALS: BP 125/73
[2019-06-16] MEDS: HYDROCODONE/ACETAMINOPHEN 10/325MG TABLET PO PRN (20:24)
[2019-06-16] MEDS: ENOXAPARIN 150MG/ML SYR SUBCUT SCH (21:01)
[2019-06-17] VITALS: BP 128/73
[2019-06-17 04:00] VITALS: BP 127/72
[2019-06-17] MEDS: DILTIAZEM HCL 30MG TABLET PO SCH (06:31)
[2019-06-17] MEDS: OMEPRAZOLE 20MG CAPSULE EXTENDED RELEASE PO SCH (06:31)
[2019-06-17] MEDS: METHYLPREDNISOLONE SOD SUCC 40 MG/ML VIAL IV SCH ×2 (06:31→16:52)
[2019-06-17] MEDS: BLOOD SUGAR DIAGNOSTIC STRIP TEST SCH ×4 (06:42→20:41)
[2019-06-17] MEDS: INSULIN LISPRO 100 UNITS/ML SUBCUT SCH ×7 (06:52→20:43)
[2019-06-17 08:00] VITALS: BP 141/96
[2019-06-17] MEDS ORDERED: MAGNESIUM 1 G PREMIX 100 ML IV NR (09:00)
[2019-06-17] MEDS: ENOXAPARIN 150MG/ML SYR SUBCUT SCH ×2 (09:04→20:41)
[2019-06-17] MEDS: ASCORBIC ACID 500 MG TABLET PO SCH ×2 (09:04→20:41)
[2019-06-17] MEDS: CYANOCOBALAMIN 1000MCG TABLET PO SCH (09:05)
[2019-06-17] MEDS: AMLODIPINE 5MG TABLET PO SCH (09:05)
[2019-06-17] MEDS: METFORMIN HCL 500MG TABLET PO SCH (09:05)
[2019-06-17] MEDS: AZITHROMYCIN 500 MG TABLET PO SCH (09:05)
[2019-06-17] MEDS: COLCHICINE 0.6MG TABLET PO SCH (09:05)
[2019-06-17] MEDS: LISINOPRIL 20MG TABLET PO SCH (09:06)
[2019-06-17] MEDS: FUROSEMIDE 40MG/4ML VIAL IVP SCH (09:06)
[2019-06-17] MEDS: INSULIN GLARGINE UD 100 UNITS/ML SYR SUBCUT SCH ×2 (10:48→21:31)
[2019-06-17 12:00] VITALS: BP 126/81
[2019-06-17] MEDS: DILTIAZEM HCL 60MG TABLET PO SCH ×3 (12:56→23:06)
[2019-06-17 16:00] VITALS: BP 135/67
[2019-06-17 16:02] LABS: HEMATOCRIT. 46.3 % (42.0-52.0); HEMOGLOBIN. 15.3 g/dL (14.0-18.0); MEAN CORPUSCULAR HEMOGLOBIN 29.2 pg (28.0-32.0); MEAN CORPUSCULAR VOLUME 88.4 fL (80.0-94.0); MEAN PLATELET VOLUME 10.2 fl (7.4-10.4); PLATELET 147 x1000/uL (130-400); RED BLOOD CELL COUNT 5.23 mill/uL (4.7-6.1); RED CELL DISTRIBUTION WIDTH 15.4 % (11.6-14.6)
[2019-06-17 16:08] LABS: CHLORIDE 97 mEq/L (98-107)
[2019-06-17] MEDS: VITAMIN E 1,000 UNIT CAPSULE PO SCH (16:52)
[2019-06-17] MEDS: CEFTRIAXONE 1 G PREMIX 50 ML IV SCH (16:52)
[2019-06-17] MEDS: ALLOPURINOL 300 MG TABLET PO SCH (16:52)
[2019-06-17 17:22] LABS: PLATELET ESTIMATE NORMAL
[2019-06-17 20:00] VITALS: BP 136/77
[2019-06-17] MEDS: FAMOTIDINE 20MG TABLET PO SCH (20:41)
[2019-06-17] MEDS: HYDROCODONE/ACETAMINOPHEN 10/325MG TABLET PO PRN (21:41)
[2019-06-18] VITALS: BP 114/62
[2019-06-18] MEDS: METHYLPREDNISOLONE SOD SUCC 40 MG/ML VIAL IV SCH ×2 (05:12→17:50)
[2019-06-18] MEDS: DILTIAZEM HCL 60MG TABLET PO SCH (05:12)
[2019-06-18] MEDS: FAMOTIDINE 20MG TABLET PO SCH ×2 (05:13→21:13)
[2019-06-18] MEDS: INSULIN LISPRO 100 UNITS/ML SUBCUT SCH ×7 (05:55→21:18)
[2019-06-18] MEDS: BLOOD SUGAR DIAGNOSTIC STRIP TEST SCH ×4 (05:56→21:03)
[2019-06-18 08:00] VITALS: BP 115/64
[2019-06-18] MEDS: VITAMIN E 1,000 UNIT CAPSULE PO SCH (08:16)
[2019-06-18] MEDS: FUROSEMIDE 40MG/4ML VIAL IVP SCH (08:16)
[2019-06-18] MEDS: ALLOPURINOL 300 MG TABLET PO SCH (08:16)
[2019-06-18] MEDS: METFORMIN HCL 500MG TABLET PO SCH (08:16)
[2019-06-18] MEDS: AZITHROMYCIN 500 MG TABLET PO SCH (08:16)
[2019-06-18] MEDS: CYANOCOBALAMIN 1000MCG TABLET PO SCH (08:16)
[2019-06-18] MEDS: COLCHICINE 0.6MG TABLET PO SCH (08:17)
[2019-06-18] MEDS: ENOXAPARIN 150MG/ML SYR SUBCUT SCH (08:17)
[2019-06-18] MEDS: LISINOPRIL 20MG TABLET PO SCH (08:17)
[2019-06-18] MEDS: ASCORBIC ACID 500 MG TABLET PO SCH ×2 (09:00→21:13)
[2019-06-18] MEDS: HYDROCODONE/ACETAMINOPHEN 10/325MG TABLET PO PRN ×2 (09:14→21:55)
[2019-06-18] MEDS: INSULIN GLARGINE UD 100 UNITS/ML SYR SUBCUT SCH ×2 (10:52→22:01)
[2019-06-18] MEDS ORDERED: DIGOXIN 125MCG TABLET PO NR (11:00)
[2019-06-18 12:00] VITALS: BP 140/82
[2019-06-18 16:00] VITALS: BP 140/82
[2019-06-18 16:12] LABS: HEMATOCRIT 47.5 % (42.0-52.0); HEMOGLOBIN 15.3 g/dL (14.0-18.0); MEAN CORPUSCULAR HEMOGLOBIN 28.5 pg (28.0-32.0); MEAN CORPUSCULAR VOLUME 88.3 fL (80.0-94.0); PLATELET 145 x1000/uL (130-400); RED BLOOD CELL COUNT 5.38 mill/uL (4.7-6.1); RED CELL DISTRIBUTION WIDTH 15.6 % (11.6-14.6)
[2019-06-18 16:24] LABS: CHLORIDE 98 mEq/L (98-107)
[2019-06-18] MEDS: RIVAROXABAN 20 MG TABLET PO SCH (17:50)
[2019-06-18] MEDS ORDERED: VERAPAMIL HCL 80 MG TABLET PO SCH (18:00)
[2019-06-18 20:05] VITALS: BP 123/51
[2019-06-19 00:29] VITALS: BP 131/83
[2019-06-19 04:00] VITALS: BP 123/74
[2019-06-19] MEDS: FAMOTIDINE 20MG TABLET PO SCH ×2 (06:12→21:37)
[2019-06-19] MEDS: METHYLPREDNISOLONE SOD SUCC 40 MG/ML VIAL IV SCH ×2 (06:16→18:00)
[2019-06-19 06:25] LABS: HEMATOCRIT. 47.1 % (42.0-52.0); HEMOGLOBIN. 15.7 g/dL (14.0-18.0); MEAN CORPUSCULAR HEMOGLOBIN 29.4 pg (28.0-32.0); MEAN CORPUSCULAR VOLUME 88.2 fL (80.0-94.0); MEAN PLATELET VOLUME 10.3 fl (7.4-10.4); PLATELET 154 x1000/uL (130-400); RED BLOOD CELL COUNT 5.34 mill/uL (4.7-6.1); RED CELL DISTRIBUTION WIDTH 15.5 % (11.6-14.6)
[2019-06-19] MEDS: VERAPAMIL HCL 80 MG TABLET PO SCH ×3 (06:53→21:37)
[2019-06-19] MEDS: INSULIN LISPRO 100 UNITS/ML SUBCUT SCH ×7 (07:06→21:35)
[2019-06-19 07:09] LABS: CHLORIDE 98 mEq/L (98-107)
[2019-06-19] MEDS: BLOOD SUGAR DIAGNOSTIC STRIP TEST SCH ×4 (07:12→21:22)
[2019-06-19] MEDS: CYANOCOBALAMIN 1000MCG TABLET PO SCH (07:15)
[2019-06-19] MEDS: METFORMIN HCL 500MG TABLET PO SCH (07:15)
[2019-06-19 08:00] VITALS: BP 128/97
[2019-06-19] MEDS: INSULIN GLARGINE UD 100 UNITS/ML SYR SUBCUT SCH ×2 (10:00→21:36)
[2019-06-19] MEDS: ASCORBIC ACID 500 MG TABLET PO SCH ×2 (10:17→21:37)
[2019-06-19] MEDS: ALLOPURINOL 300 MG TABLET PO SCH (10:17)
[2019-06-19] MEDS: FUROSEMIDE 40MG/4ML VIAL IVP SCH (10:17)
[2019-06-19] MEDS: LISINOPRIL 20MG TABLET PO SCH (10:18)
[2019-06-19] MEDS: COLCHICINE 0.6MG TABLET PO SCH (10:18)
[2019-06-19] MEDS: VITAMIN E 1,000 UNIT CAPSULE PO SCH (10:18)
[2019-06-19] MEDS ORDERED: DIGOXIN 500MCG/2ML AMP IV NR (12:45)
[2019-06-19 13:12] LABS: PLATELET ESTIMATE NORMAL
[2019-06-19] MEDS: MECLIZINE 25MG TABLET PO PRN ×2 (13:54→22:18)
[2019-06-19 16:00] VITALS: BP 150/94
[2019-06-19] MEDS: RIVAROXABAN 20 MG TABLET PO SCH (17:00)
[2019-06-19 20:00] VITALS: BP 133/90
[2019-06-19] MEDS ORDERED: HYDROCODONE/ACETAMINOPHEN 10/325MG TABLET PO PRN (21:45)
[2019-06-20] VITALS (7 sets, daily range): BP systolic 114–136; BP diastolic 84–94
[2019-06-20] MEDS: METHYLPREDNISOLONE SOD SUCC 40 MG/ML VIAL IV SCH ×2 (05:47→17:39)
[2019-06-20] MEDS: FAMOTIDINE 20MG TABLET PO SCH (05:47)
[2019-06-20] MEDS: VERAPAMIL HCL 80 MG TABLET PO SCH (05:47)
[2019-06-20] MEDS: BLOOD SUGAR DIAGNOSTIC STRIP TEST SCH ×3 (05:54→17:18)
[2019-06-20] MEDS: INSULIN LISPRO 100 UNITS/ML SUBCUT SCH ×6 (06:00→17:40)
[2019-06-20] MEDS: CYANOCOBALAMIN 1000MCG TABLET PO SCH (08:13)
[2019-06-20] MEDS: METFORMIN HCL 500MG TABLET PO SCH (08:13)
[2019-06-20] MEDS: VITAMIN E 1,000 UNIT CAPSULE PO SCH (08:14)
[2019-06-20] MEDS: COLCHICINE 0.6MG TABLET PO SCH (08:14)
[2019-06-20] MEDS: ALLOPURINOL 300 MG TABLET PO SCH (08:14)
[2019-06-20] MEDS: FUROSEMIDE 40MG/4ML VIAL IVP SCH (08:14)
[2019-06-20] MEDS: ASCORBIC ACID 500 MG TABLET PO SCH (08:14)
[2019-06-20] MEDS: LISINOPRIL 20MG TABLET PO SCH (08:15)
[2019-06-20] MEDS: NEBIVOLOL HCL 5 MG TABLET PO SCH ×2 (09:56→10:18)
[2019-06-20] MEDS: OMEPRAZOLE 20MG CAPSULE EXTENDED RELEASE PO SCH ×2 (09:57→10:18)
[2019-06-20] MEDS: VERAPAMIL HCL 120MG TABLET PO SCH ×3 (09:57→14:00)
[2019-06-20] MEDS: INSULIN GLARGINE UD 100 UNITS/ML SYR SUBCUT SCH (09:58)
[2019-06-20] MEDS ORDERED: RIVA20TA MT (13:10)
[2019-06-20] MEDS ORDERED: FURO-151 MT (13:10)
[2019-06-20] MEDS ORDERED: INSU100I28 SQ (13:10)
[2019-06-20] MEDS ORDERED: P20 PO (13:10)
[2019-06-20] MEDS ORDERED: MECL-115 PO (13:10)
[2019-06-20] MEDS ORDERED: VERA120T23 PO (13:10)
[2019-06-20] MEDS ORDERED: BLOO-1465 MT (13:10)
[2019-06-20] MEDS ORDERED: NEBI2.5T2 PO (13:10)
[2019-06-20] MEDS: RIVAROXABAN 20 MG TABLET PO SCH (17:39)
[2019-06-20] MEDS: MECLIZINE 25MG TABLET PO PRN (18:41)
== END 2019-06-20 19:15 | disposition home or self-care (01) | DRG 291 ==
LOC: ER 05:18 → EDBEDREQSVC 08:27 → EDBEDREQTM 08:27 → EDBEDREQ 08:27 → ENRESERV 12:59 → ER 14:00 → CANBEDREQ 14:38 → 7EST 14:53 → 5WST 06-16 18:04
PROVIDERS: ADMIT Internal Medicine; ATTEND Internal Medicine
DX: I13.0 Hypertensive heart and chronic kidney disease with heart failure and stage 1 through stage 4 chronic kidney disease, or unspecified chronic kidney disease (principal); J96.00 Acute respiratory failure, unspecified whether with hypoxia or hypercapnia; J18.9 Pneumonia, unspecified organism; I50.43 Acute on chronic combined systolic (congestive) and diastolic (congestive) heart failure; J44.1 Chronic obstructive pulmonary disease with (acute) exacerbation; E66.2 Morbid (severe) obesity with alveolar hypoventilation; E87.2 Acidosis; F11.20 Opioid dependence, uncomplicated; I48.92 Unspecified atrial flutter; Z68.41 Body mass index [BMI] 40.0-44.9, adult; A52.16 Charcot's arthropathy (tabetic); J44.0 Chronic obstructive pulmonary disease with (acute) lower respiratory infection; I42.9 Cardiomyopathy, unspecified; E11.22 Type 2 diabetes mellitus with diabetic chronic kidney disease; E11.65 Type 2 diabetes mellitus with hyperglycemia; I25.10 Atherosclerotic heart disease of native coronary artery without angina pectoris; I44.7 Left bundle-branch block, unspecified; I48.91 Unspecified atrial fibrillation; K80.20 Calculus of gallbladder without cholecystitis without obstruction; E11.42 Type 2 diabetes mellitus with diabetic polyneuropathy; T38.0X5A Adverse effect of glucocorticoids and synthetic analogues, initial encounter; I87.8 Other specified disorders of veins; I89.0 Lymphedema, not elsewhere classified; M10.9 Gout, unspecified; E11.51 Type 2 diabetes mellitus with diabetic peripheral angiopathy without gangrene; G89.29 Other chronic pain; K21.9 Gastro-esophageal reflux disease without esophagitis; Z20.828 Contact with and (suspected) exposure to other viral communicable diseases; M19.90 Unspecified osteoarthritis, unspecified site; Z96.653 Presence of artificial knee joint, bilateral; N18.9 Chronic kidney disease, unspecified; Z99.81 Dependence on supplemental oxygen; Z91.19 Patient's noncompliance with other medical treatment and regimen; Y92.89 Other specified places as the place of occurrence of the external cause; Z79.01 Long term (current) use of anticoagulants; Z79.4 Long term (current) use of insulin; Z79.899 Other long term (current) drug therapy; Z88.6 Allergy status to analgesic agent; Z88.8 Allergy status to other drugs, medicaments and biological substances; Z79.84 Long term (current) use of oral hypoglycemic drugs; Z71.3 Dietary counseling and surveillance
CPT/HCPCS: 36415; 36600; 71045; 78580; 80048; 80053; 81003; 82375; 82805; 82962; 83605; 83735; 83880; 84145; 84484; 85025; 85027; 87635; 93005; 99291; J0696; J1160; J1650; J1815; J1940; J2920; J2930; J3475; J3490; J7030; J8597

== ENCOUNTER 2019-07-03 04:06 | Inpatient (IN) | payer MEDICARE, MEDICAID ==
[~2019-07-03] VITALS: Ht 180.3 cm; Wt 138.3 kg
[~2019-07-03 04:06] MED LIST changes: +ASCO-339 PO; +BLOO-1465 MT; +CYAN-33 MT; +FURO-151 MT; +INSU100I28 SQ; -LISI-604 MT; +MECL-115 PO; +NEBI2.5T2 PO; +P20 PO; +RIVA20TA MT; +VERA120T23 PO; +VITA-340 MT
[2019-07-03] MEDS ORDERED: VANCOMYCIN 1 G PREMIX 200 ML IV ONE (04:30)
[2019-07-03] MEDS ORDERED: SODIUM CHLORIDE 0.9% 1000ML BAG (SEPSIS BOLUS) IV ONE (04:30)
[2019-07-03] MEDS ORDERED: PIPERACILLIN/TAZ 3.375G PREMIX 50 ML IV ONE (04:30)
[2019-07-03 04:55] LABS: BASOPHILS % 0.8 % (0.0-2.0); EOSINOPHILS % 0.7 % (0.0-5.0); HEMATOCRIT. 48.9 % (42.0-52.0); MEAN CORPUSCULAR HEMOGLOBIN 28.9 pg (28.0-32.0); MEAN CORPUSCULAR VOLUME 88.3 fL (80.0-94.0); MEAN PLATELET VOLUME 9.6 fl (7.4-10.4); MONOCYTES % 3.4 % (2.0-8.0); NEUTROPHILS % 86.1 % (40.0-76.0); PLATELET 88 x1000/uL (130-400); RED BLOOD CELL COUNT 5.54 mill/uL (4.7-6.1); RED CELL DISTRIBUTION WIDTH 15.6 % (11.6-14.6)
[2019-07-03 04:56] LABS: CLARITY URINE CLEAR (CLEAR); COLOR URINE YELLOW (YELLOW); KETONES URINE NEGATIVE (NEGATIVE); LEUKOCYTE ESTERASE URINE NEGATIVE (NEGATIVE); NITRITE URINE NEGATIVE (NEGATIVE); OCCULT BLOOD URINE NEGATIVE (NEGATIVE); PROTEIN URINE NEGATIVE (NEGATIVE); SPECIFIC GRAVITY URINE 1.012 (1.005-1.030); UROBILINOGEN URINE 0.2 E.U./dL (0.2-1.0)
[2019-07-03 05:01] LABS: CHLORIDE 101 mEq/L (98-107)
[2019-07-03 05:03] LABS: PROTHROMBIN TIME 11.1 sec (9.6-11.0)
[2019-07-03] MEDS ORDERED: HYDROCODONE/ACETAMINOPHEN 5/325MG TABLET PO ONE (06:00)
[2019-07-03] MEDS ORDERED: OXYCODONE HCL/ACETAMINOPHEN 5/325MG TABLET PO ONE (07:00)
[2019-07-03] MEDS ORDERED: ACETAMINOPHEN 325MG TABLET PO PRN (09:30)
[2019-07-03] MEDS ORDERED: ONDANSETRON HCL 4MG/2ML INJ IV PRN (09:30)
[2019-07-03] MEDS ORDERED: CEFEPIME 1,000 MG in DEXTROSE 5% WATER 50 ML IV SCH (10:15)
[2019-07-03] MEDS: LOSARTAN POTASSIUM 25 MG TABLET PO SCH (10:39)
[2019-07-03] MEDS: FUROSEMIDE 40MG/4ML VIAL IVP SCH (10:42)
[2019-07-03] MEDS ORDERED: VANCOMYCIN 1 G PREMIX 200 ML IV SCH (11:00)
[2019-07-03] MEDS: BUDESONIDE 0.5MG/2ML NEB HHN SCH ×3 (11:36→20:42)
[2019-07-03] MEDS: IPRATROPIUM BROMIDE (0.02%) 0.5MG/2.5ML NEB HHN PRN (11:45)
[2019-07-03] MEDS: OXYCODONE HCL/ACETAMINOPHEN 5/325MG TABLET PO PRN ×2 (13:03→20:49)
[2019-07-03 17:00] VITALS: BP 108/67
[2019-07-03 18:00] VITALS: BP 108/67
[2019-07-03 20:00] VITALS: BP 119/71
[2019-07-03] MEDS: VERAPAMIL HCL 120MG TABLET PO SCH (20:48)
[2019-07-03] MEDS ORDERED: DEXTROSE 50% WATER 50ML SYRINGE IV PRN (21:15)
[2019-07-03] MEDS: BLOOD SUGAR DIAGNOSTIC STRIP TEST SCH (21:30)
[2019-07-03] MEDS: CEFEPIME 1,000 MG in DEXTROSE 5% WATER 50 ML IV SCH (22:16)
[2019-07-03] MEDS: INSULIN LISPRO 100 UNITS/ML SUBCUT SCH (22:18)
[2019-07-03] MEDS: VANCOMYCIN 1 G PREMIX 200 ML IV SCH (23:56)
[2019-07-04] VITALS: BP 93/58
[2019-07-04 04:00] VITALS: BP 94/58
[2019-07-04] MEDS: BLOOD SUGAR DIAGNOSTIC STRIP TEST SCH ×4 (05:26→21:05)
[2019-07-04] MEDS: VERAPAMIL HCL 120MG TABLET PO SCH ×4 (05:26→22:29)
[2019-07-04] MEDS ORDERED: BLOOD SUGAR DIAGNOSTIC STRIP TEST SCH (07:20)
[2019-07-04] MEDS: INSULIN LISPRO 100 UNITS/ML SUBCUT SCH ×4 (08:01→21:00)
[2019-07-04] MEDS: METFORMIN HCL 500MG TABLET PO SCH ×2 (08:02→16:54)
[2019-07-04] MEDS: FUROSEMIDE 40MG/4ML VIAL IVP SCH (09:06)
[2019-07-04] MEDS: COLCHICINE 0.6MG TABLET PO SCH (09:06)
[2019-07-04] MEDS: OMEPRAZOLE 20MG CAPSULE EXTENDED RELEASE PO SCH ×3 (09:06→23:30)
[2019-07-04] MEDS: ALLOPURINOL 300 MG TABLET PO SCH (09:06)
[2019-07-04] MEDS: CEFEPIME 1,000 MG in DEXTROSE 5% WATER 50 ML IV SCH ×2 (09:06→23:30)
[2019-07-04] MEDS: LOSARTAN POTASSIUM 25 MG TABLET PO SCH (09:06)
[2019-07-04] MEDS: OXYCODONE HCL/ACETAMINOPHEN 5/325MG TABLET PO PRN (09:17)
[2019-07-04] MEDS: BUDESONIDE 0.5MG/2ML NEB HHN SCH ×2 (10:55→22:02)
[2019-07-04] MEDS: VANCOMYCIN 1 G PREMIX 200 ML IV SCH ×2 (11:37→23:00)
[2019-07-04 12:00] VITALS: BP 124/76
[2019-07-04] MEDS: SODIUM HYPOCHLORITE (0.25%) 480ML SOLUTION (HALF STRENGTH) TOP SCH (16:32)
[2019-07-04] MEDS: SILVER SULFADIAZINE 1% CREAM 25GM TOP SCH (16:33)
[2019-07-04] MEDS: DILTIAZEM HCL 60MG TABLET PO SCH ×3 (16:55→22:31)
[2019-07-04] MEDS: RIVAROXABAN 20 MG TABLET PO SCH (16:55)
[2019-07-04] MEDS: DIGOXIN 500MCG/2ML AMP IV SCH (17:00)
[2019-07-04 19:57] LABS: BASOPHILS % 0.7 % (0.0-2.0); HEMATOCRIT. 42.6 % (42.0-52.0); LYMPHOCYTES % 21.1 % (20.0-50.0); MEAN CORPUSCULAR HEMOGLOBIN 29.3 pg (28.0-32.0); MEAN CORPUSCULAR VOLUME 89.2 fL (80.0-94.0); MEAN PLATELET VOLUME 9.9 fl (7.4-10.4); MONOCYTES % 5.5 % (2.0-8.0); NEUTROPHILS % 69.7 % (40.0-76.0); PLATELET 78 x1000/uL (130-400); RED BLOOD CELL COUNT 4.78 mill/uL (4.7-6.1); RED CELL DISTRIBUTION WIDTH 15.9 % (11.6-14.6)
[2019-07-04 20:00] VITALS: BP 112/59
[2019-07-04 20:21] LABS: CHLORIDE 99 mEq/L (98-107)
[2019-07-04] MEDS: MAGNESIUM/ALUMINUM HYDROXIDE/SIMETHICONE 30ML UDC PO PRN (23:29)
[2019-07-05] VITALS (7 sets, daily range): BP systolic 98–180; BP diastolic 50–76
[2019-07-05] MEDS: CEFEPIME 1,000 MG in DEXTROSE 5% WATER 50 ML IV SCH ×3 (02:20→21:19)
[2019-07-05] MEDS: VANCOMYCIN 1 G PREMIX 200 ML IV SCH ×2 (03:12→11:29)
[2019-07-05] MEDS: OXYCODONE HCL/ACETAMINOPHEN 5/325MG TABLET PO PRN ×2 (05:08→21:20)
[2019-07-05] MEDS: VERAPAMIL HCL 120MG TABLET PO SCH (06:23)
[2019-07-05] MEDS: DILTIAZEM HCL 60MG TABLET PO SCH ×3 (06:30→17:09)
[2019-07-05] MEDS: BLOOD SUGAR DIAGNOSTIC STRIP TEST SCH ×4 (07:29→20:55)
[2019-07-05] MEDS: INSULIN LISPRO 100 UNITS/ML SUBCUT SCH ×4 (07:50→20:55)
[2019-07-05] MEDS: FUROSEMIDE 40MG/4ML VIAL IVP SCH (08:38)
[2019-07-05] MEDS: METFORMIN HCL 500MG TABLET PO SCH ×2 (08:39→17:09)
[2019-07-05] MEDS: COLCHICINE 0.6MG TABLET PO SCH (08:39)
[2019-07-05] MEDS: OMEPRAZOLE 20MG CAPSULE EXTENDED RELEASE PO SCH (08:39)
[2019-07-05] MEDS: ALLOPURINOL 300 MG TABLET PO SCH (08:39)
[2019-07-05] MEDS: LOSARTAN POTASSIUM 25 MG TABLET PO SCH (08:41)
[2019-07-05] MEDS: MAGNESIUM/ALUMINUM HYDROXIDE/SIMETHICONE 30ML UDC PO PRN (09:58)
[2019-07-05] MEDS: SILVER SULFADIAZINE 1% CREAM 25GM TOP SCH (11:28)
[2019-07-05] MEDS: SODIUM HYPOCHLORITE (0.25%) 480ML SOLUTION (HALF STRENGTH) TOP SCH (11:28)
[2019-07-05] MEDS: RIVAROXABAN 20 MG TABLET PO SCH (17:00)
[2019-07-05] MEDS: DIGOXIN 500MCG/2ML AMP IV SCH (17:09)
[2019-07-05 17:26] LABS: CHLORIDE 99 mEq/L (98-107)
[2019-07-05] MEDS: BUDESONIDE 0.5MG/2ML NEB HHN SCH (22:15)
[2019-07-06] VITALS: BP 110/70
[2019-07-06] MEDS: DILTIAZEM HCL 60MG TABLET PO SCH ×2 (00:29→06:56)
[2019-07-06] MEDS: VANCOMYCIN 1500MG in DEXTROSE 5% WATER 250ML IV SCH ×2 (00:53→18:12)
[2019-07-06 04:00] VITALS: BP 115/71
[2019-07-06] MEDS ORDERED: ZINC50TA69 PO (06:37)
[2019-07-06] MEDS: BLOOD SUGAR DIAGNOSTIC STRIP TEST SCH ×4 (06:56→21:43)
[2019-07-06] MEDS: METFORMIN HCL 500MG TABLET PO SCH ×3 (06:56→18:43)
[2019-07-06] MEDS: INSULIN LISPRO 100 UNITS/ML SUBCUT SCH ×4 (06:56→21:00)
[2019-07-06 08:12] VITALS: BP 125/77
[2019-07-06] MEDS: COLCHICINE 0.6MG TABLET PO SCH (08:33)
[2019-07-06] MEDS: OMEPRAZOLE 20MG CAPSULE EXTENDED RELEASE PO SCH (08:33)
[2019-07-06] MEDS: ALLOPURINOL 300 MG TABLET PO SCH (08:33)
[2019-07-06] MEDS: CEFEPIME 1,000 MG in DEXTROSE 5% WATER 50 ML IV SCH ×2 (08:33→23:17)
[2019-07-06] MEDS: MULTIVITAMINS,THER W-MINERALS TABLET PO SCH (08:33)
[2019-07-06] MEDS: LOSARTAN POTASSIUM 25 MG TABLET PO SCH (08:33)
[2019-07-06] MEDS: SODIUM HYPOCHLORITE (0.25%) 480ML SOLUTION (HALF STRENGTH) TOP SCH (08:51)
[2019-07-06] MEDS: SILVER SULFADIAZINE 1% CREAM 25GM TOP SCH (08:51)
[2019-07-06] MEDS: FUROSEMIDE 40MG/4ML VIAL IVP SCH (08:53)
[2019-07-06 12:11] VITALS: BP 144/62
[2019-07-06] MEDS: DILTIAZEM HCL 90MG TABLET PO SCH ×2 (13:05→22:16)
[2019-07-06 16:13] VITALS: BP 145/70
[2019-07-06] MEDS: RIVAROXABAN 20 MG TABLET PO SCH (16:47)
[2019-07-06] MEDS: DIGOXIN 500MCG/2ML AMP IV SCH (17:48)
[2019-07-06] MEDS: OXYCODONE HCL/ACETAMINOPHEN 5/325MG TABLET PO PRN (18:47)
[2019-07-06 20:00] VITALS: BP 130/94
[2019-07-06] MEDS: BUDESONIDE 0.5MG/2ML NEB HHN SCH (20:46)
[2019-07-07] VITALS: BP 137/59
[2019-07-07 04:00] VITALS: BP 125/61
[2019-07-07] MEDS: DILTIAZEM HCL 90MG TABLET PO SCH ×5 (06:00→21:31)
[2019-07-07] MEDS: BLOOD SUGAR DIAGNOSTIC STRIP TEST SCH ×4 (07:47→21:30)
[2019-07-07] MEDS: INSULIN LISPRO 100 UNITS/ML SUBCUT SCH ×4 (07:47→21:00)
[2019-07-07 08:00] VITALS: BP 124/60
[2019-07-07] MEDS: IPRATROPIUM BROMIDE (0.02%) 0.5MG/2.5ML NEB HHN PRN ×2 (08:25→20:49)
[2019-07-07] MEDS: BUDESONIDE 0.5MG/2ML NEB HHN SCH ×3 (08:25→22:02)
[2019-07-07] MEDS: LOSARTAN POTASSIUM 25 MG TABLET PO SCH ×2 (09:00→09:17)
[2019-07-07] MEDS: FUROSEMIDE 40MG/4ML VIAL IVP SCH ×2 (09:00→09:17)
[2019-07-07] MEDS: COLCHICINE 0.6MG TABLET PO SCH (09:00)
[2019-07-07] MEDS: OMEPRAZOLE 20MG CAPSULE EXTENDED RELEASE PO SCH (09:17)
[2019-07-07] MEDS: ALLOPURINOL 300 MG TABLET PO SCH (09:17)
[2019-07-07] MEDS: MULTIVITAMINS,THER W-MINERALS TABLET PO SCH (09:17)
[2019-07-07] MEDS: CEFEPIME 1,000 MG in DEXTROSE 5% WATER 50 ML IV SCH ×2 (09:18→21:30)
[2019-07-07] MEDS: SODIUM HYPOCHLORITE (0.25%) 480ML SOLUTION (HALF STRENGTH) TOP SCH (09:18)
[2019-07-07] MEDS: SILVER SULFADIAZINE 1% CREAM 25GM TOP SCH (09:19)
[2019-07-07] MEDS: OXYCODONE HCL/ACETAMINOPHEN 5/325MG TABLET PO PRN (10:24)
[2019-07-07] MEDS ORDERED: DILT240C91 MT (10:58)
[2019-07-07 12:00] VITALS: BP 146/50
[2019-07-07] MEDS: VANCOMYCIN 1500MG in DEXTROSE 5% WATER 250ML IV SCH (12:15)
[2019-07-07 16:00] VITALS: BP 159/75
[2019-07-07] MEDS: RIVAROXABAN 20 MG TABLET PO SCH (17:01)
[2019-07-07] MEDS: METFORMIN HCL 500MG TABLET PO SCH (17:01)
[2019-07-07] MEDS: DIGOXIN 500MCG/2ML AMP IV SCH (17:42)
[2019-07-07 20:00] VITALS: BP 134/71
[2019-07-08] VITALS: BP 149/82
[2019-07-08] MEDS: OXYCODONE HCL/ACETAMINOPHEN 5/325MG TABLET PO PRN (00:01)
[2019-07-08 04:00] VITALS: BP 135/60
[2019-07-08 06:59] LABS: CHLORIDE 99 mEq/L (98-107)
[2019-07-08] MEDS: BLOOD SUGAR DIAGNOSTIC STRIP TEST SCH ×2 (06:59→12:30)
[2019-07-08] MEDS: VANCOMYCIN 1500MG in DEXTROSE 5% WATER 250ML IV SCH (06:59)
[2019-07-08] MEDS: DILTIAZEM HCL 90MG TABLET PO SCH ×3 (06:59→13:46)
[2019-07-08 07:02] LABS: BASOPHILS % 0.9 % (0.0-2.0); EOSINOPHILS % 4.8 % (0.0-5.0); HEMATOCRIT. 42.7 % (42.0-52.0); HEMOGLOBIN. 14.2 g/dL (14.0-18.0); LYMPHOCYTES % 19.6 % (20.0-50.0); MEAN CORPUSCULAR HEMOGLOBIN 29.3 pg (28.0-32.0); MEAN PLATELET VOLUME 10.4 fl (7.4-10.4); MONOCYTES % 8.5 % (2.0-8.0); NEUTROPHILS % 66.2 % (40.0-76.0); PLATELET 109 x1000/uL (130-400); RED BLOOD CELL COUNT 4.85 mill/uL (4.7-6.1); RED CELL DISTRIBUTION WIDTH 15.3 % (11.6-14.6)
[2019-07-08 07:17] LABS: VANCOMYCIN TROUGH 13.9 ug/mL (5.0-10.0)
[2019-07-08] MEDS: INSULIN LISPRO 100 UNITS/ML SUBCUT SCH ×2 (07:34→12:50)
[2019-07-08 08:00] VITALS: BP 131/62
[2019-07-08] MEDS: COLCHICINE 0.6MG TABLET PO SCH ×2 (09:00→09:07)
[2019-07-08] MEDS: CEFEPIME 1,000 MG in DEXTROSE 5% WATER 50 ML IV SCH (09:01)
[2019-07-08] MEDS: LOSARTAN POTASSIUM 25 MG TABLET PO SCH (09:02)
[2019-07-08] MEDS: METFORMIN HCL 500MG TABLET PO SCH (09:04)
[2019-07-08] MEDS: MULTIVITAMINS,THER W-MINERALS TABLET PO SCH (09:04)
[2019-07-08] MEDS: FUROSEMIDE 40MG/4ML VIAL IVP SCH (09:05)
[2019-07-08] MEDS: ALLOPURINOL 300 MG TABLET PO SCH (09:05)
[2019-07-08] MEDS: OMEPRAZOLE 20MG CAPSULE EXTENDED RELEASE PO SCH (09:05)
[2019-07-08] MEDS: SODIUM HYPOCHLORITE (0.25%) 480ML SOLUTION (HALF STRENGTH) TOP SCH (09:15)
[2019-07-08] MEDS: SILVER SULFADIAZINE 1% CREAM 25GM TOP SCH (09:15)
[2019-07-08] MEDS: BUDESONIDE 0.5MG/2ML NEB HHN SCH (10:09)
[2019-07-08] MEDS ORDERED: ALLO300T2 PO (10:34)
[2019-07-08] MEDS ORDERED: OMEP20CA14 PO (10:34)
[2019-07-08] MEDS ORDERED: FURO-151 MT ×2 (10:34)
[2019-07-08] MEDS ORDERED: FLUT1DIS3 INH (10:34)
[2019-07-08] MEDS ORDERED: METF-416 MT (10:34)
[2019-07-08] MEDS ORDERED: DILT240C91 MT (10:34)
[2019-07-08] MEDS ORDERED: COLC0.6T66 PO (10:34)
[2019-07-08] MEDS ORDERED: ALBU18HF2 IH (10:34)
[2019-07-08] MEDS ORDERED: RIVA20TA MT (10:34)
[2019-07-08] MEDS ORDERED: OXYC-515 MT (11:16)
[2019-07-08 11:30] VITALS: BP 131/62
[2019-07-08] MEDS ORDERED: OXYCODONE HCL/ACETAMINOPHEN 5/325MG TABLET PO PRN (11:30)
[2019-07-08 12:00] VITALS: BP 131/63
[2019-07-08 16:00] VITALS: BP 100/59
== END 2019-07-08 16:20 | disposition home health service (06) | DRG 871 ==
LOC: ER 04:20 → EDBEDREQ 05:28 → 6WST 05:43 → EDBEDREQ 05:57 → EDBEDREQTM 05:57 → EDBEDREQSVC 09:21 → SUPCPDRO 10:55 → ENRESERV 14:07
PROVIDERS: ADMIT Internal Medicine; ATTEND Internal Medicine
DX: A41.9 Sepsis, unspecified organism (principal); I50.33 Acute on chronic diastolic (congestive) heart failure; J96.00 Acute respiratory failure, unspecified whether with hypoxia or hypercapnia; E44.1 Mild protein-calorie malnutrition; E66.2 Morbid (severe) obesity with alveolar hypoventilation; I13.0 Hypertensive heart and chronic kidney disease with heart failure and stage 1 through stage 4 chronic kidney disease, or unspecified chronic kidney disease; L03.115 Cellulitis of right lower limb; I48.92 Unspecified atrial flutter; I42.0 Dilated cardiomyopathy; I48.20 Chronic atrial fibrillation, unspecified; E87.2 Acidosis; Z68.41 Body mass index [BMI] 40.0-44.9, adult; E11.22 Type 2 diabetes mellitus with diabetic chronic kidney disease; E11.42 Type 2 diabetes mellitus with diabetic polyneuropathy; E11.51 Type 2 diabetes mellitus with diabetic peripheral angiopathy without gangrene; I25.10 Atherosclerotic heart disease of native coronary artery without angina pectoris; J44.9 Chronic obstructive pulmonary disease, unspecified; M10.9 Gout, unspecified; N18.9 Chronic kidney disease, unspecified; Z96.653 Presence of artificial knee joint, bilateral; K80.20 Calculus of gallbladder without cholecystitis without obstruction; Z79.01 Long term (current) use of anticoagulants; I89.0 Lymphedema, not elsewhere classified; G89.29 Other chronic pain; K21.9 Gastro-esophageal reflux disease without esophagitis; M54.9 Dorsalgia, unspecified; I83.015 Varicose veins of right lower extremity with ulcer other part of foot; I83.025 Varicose veins of left lower extremity with ulcer other part of foot; L97.519 Non-pressure chronic ulcer of other part of right foot with unspecified severity; L97.529 Non-pressure chronic ulcer of other part of left foot with unspecified severity; D69.6 Thrombocytopenia, unspecified; E78.5 Hyperlipidemia, unspecified; F17.210 Nicotine dependence, cigarettes, uncomplicated; B87.9 Myiasis, unspecified; Z82.3 Family history of stroke; Z82.49 Family history of ischemic heart disease and other diseases of the circulatory system; Z91.19 Patient's noncompliance with other medical treatment and regimen; Z88.5 Allergy status to narcotic agent; Z88.6 Allergy status to analgesic agent; Z79.4 Long term (current) use of insulin; Z79.899 Other long term (current) drug therapy; Z79.51 Long term (current) use of inhaled steroids; Z79.84 Long term (current) use of oral hypoglycemic drugs; Z71.3 Dietary counseling and surveillance; E11.610 Type 2 diabetes mellitus with diabetic neuropathic arthropathy; M19.072 Primary osteoarthritis, left ankle and foot; M19.071 Primary osteoarthritis, right ankle and foot
CPT/HCPCS: 36415; 71045; 73630; 80048; 80053; 80202; 81003; 82962; 83605; 84145; 84484; 85025; 93005; 93923; 93970; 94640; 97022; 97162; 99291; J0692; J1160; J1815; J1940; J2543; J3370; J7030; J7060; J7626

== ENCOUNTER 2019-11-13 01:05 | Inpatient (IN) | payer MEDICARE, MEDICAID ==
[~2019-11-13] VITALS: Ht 185.4 cm; Wt 102.5 kg
[~2019-11-13 01:05] MED LIST changes: +CARV6.2548 MT; +DILT360C27 MT; +FLUT1DIS3 INH; -INSU100I28 SQ; -MECL-115 PO; +METF-416 MT; -METF500T PO; -NEBI2.5T2 PO; -P20 PO; -VERA120T23 PO; +ZINC50TA69 PO
[2019-11-13] MEDS ORDERED: ALBUTEROL (0.083%) 2.5MG/3ML NEB HHN STA (01:33)
[2019-11-13] MEDS ORDERED: IPRATROPIUM BROMIDE (0.02%) 0.5MG/2.5ML NEB HHN STA (01:33)
[2019-11-13] MEDS ORDERED: CLOPIDOGREL 75MG TABLET PO ONE (01:45)
[2019-11-13 05:55] LABS: BASOPHILS % 0.9 % (0.0-2.0); EOSINOPHILS % 3.4 % (0.0-5.0); HEMATOCRIT. 44.5 % (42.0-52.0); HEMOGLOBIN. 14.6 g/dL (14.0-18.0); LYMPHOCYTES % 19.7 % (20.0-50.0); MEAN CORPUSCULAR HEMOGLOBIN 28.3 pg (28.0-32.0); MEAN CORPUSCULAR VOLUME 86.5 fL (80.0-94.0); MEAN PLATELET VOLUME 9.9 fl (7.4-10.4); MONOCYTES % 10.5 % (2.0-8.0); NEUTROPHILS % 65.5 % (40.0-76.0); PLATELET 159 x1000/uL (130-400); RED BLOOD CELL COUNT 5.15 mill/uL (4.7-6.1)
[2019-11-13 05:56] LABS: CHLORIDE 97 mEq/L (98-107)
[2019-11-13] MEDS ORDERED: HYDROCODONE/ACETAMINOPHEN 5/325MG TABLET PO ONE (06:00)
[2019-11-13] MEDS ORDERED: CLINDAMYCIN 900 MG in DEXTROSE 5% WATER 50 ML IV ONE (06:30)
[2019-11-13 06:36] LABS: CLARITY URINE CLEAR (CLEAR); COLOR URINE YELLOW (YELLOW); KETONES URINE NEGATIVE (NEGATIVE); OCCULT BLOOD URINE NEGATIVE (NEGATIVE); PH URINE 5.5 (4.5-8.0); PROTEIN URINE TRACE (NEGATIVE); SPECIFIC GRAVITY URINE 1.015 (1.005-1.030)
[2019-11-13 06:37] LABS: LEUKOCYTE ESTERASE URINE NEGATIVE (NEGATIVE); NITRITE URINE NEGATIVE (NEGATIVE); UROBILINOGEN URINE 0.2 E.U./dL (0.2-1.0)
[2019-11-13] MEDS ORDERED: CLINDAMYCIN 900 MG PREMIX 50 ML IV ONE (06:45)
[2019-11-13] MEDS ORDERED: SODIUM CHLORIDE 0.9% 1,000 ML IV ONE (07:00)
[2019-11-13] MEDS ORDERED: DEXTROSE 50% WATER 50ML SYRINGE IV PRN (09:15)
[2019-11-13] MEDS ORDERED: ACETAMINOPHEN 325MG TABLET PO PRN (09:15)
[2019-11-13] MEDS ORDERED: ONDANSETRON HCL 4MG/2ML INJ IV PRN (09:15)
[2019-11-13] MEDS: FUROSEMIDE 40MG/4ML VIAL IVP SCH (10:30)
[2019-11-13] MEDS: DILTIAZEM HCL 300MG CAPSULE SR 24HR PO SCH (11:00)
[2019-11-13] MEDS ORDERED: DOXY100C2 MT (11:47)
[2019-11-13] MEDS ORDERED: TERB250T51 MT (11:47)
[2019-11-13] MEDS ORDERED: OMEP40CA12 MT (11:47)
[2019-11-13] MEDS ORDERED: CARV6.2548 MT (11:49)
[2019-11-13 12:00] VITALS: BP 103/52
[2019-11-13] MEDS: INSULIN LISPRO 100 UNITS/ML SUBCUT SCH ×3 (12:40→20:43)
[2019-11-13] MEDS: HYDROCODONE/ACETAMINOPHEN 10/325MG TABLET PO PRN ×2 (12:51→20:44)
[2019-11-13] MEDS: OMEPRAZOLE 20MG CAPSULE EXTENDED RELEASE PO SCH (12:51)
[2019-11-13] MEDS: BLOOD SUGAR DIAGNOSTIC STRIP TEST SCH ×3 (12:52→20:43)
[2019-11-13] MEDS ORDERED: CLINDAMYCIN 300 MG in DEXTROSE 5% WATER 50 ML IV SCH (15:30)
[2019-11-13] MEDS ORDERED: CLINDAMYCIN 600MG PREMIX 50 ML IV SCH (15:30)
[2019-11-13] MEDS: CLINDAMYCIN 600MG PREMIX 50 ML IV SCH (16:34)
[2019-11-13] MEDS ORDERED: RIVAROXABAN 15 MG TABLET PO SCH (17:00)
[2019-11-13 17:03] VITALS: BP 104/53
[2019-11-13 20:00] VITALS: BP 97/58
[2019-11-14] VITALS: BP 98/52
[2019-11-14] MEDS: CLINDAMYCIN 600MG PREMIX 50 ML IV SCH ×4 (01:16→23:50)
[2019-11-14 04:00] VITALS: BP 141/115
[2019-11-14] MEDS: HYDROCODONE/ACETAMINOPHEN 10/325MG TABLET PO PRN ×3 (04:01→17:25)
[2019-11-14] MEDS: IPRATROPIUM/ALBUTEROL 0.5-3(2.5)MG/3ML NEB HHN SCH ×4 (04:26→21:59)
[2019-11-14] MEDS: BLOOD SUGAR DIAGNOSTIC STRIP TEST SCH ×4 (05:54→21:21)
[2019-11-14] MEDS: INSULIN LISPRO 100 UNITS/ML SUBCUT SCH ×4 (05:54→21:21)
[2019-11-14] MEDS: OMEPRAZOLE 20MG CAPSULE EXTENDED RELEASE PO SCH (06:06)
[2019-11-14 06:29] LABS: BASOPHILS % 1.1 % (0.0-2.0); EOSINOPHILS % 5.5 % (0.0-5.0); HEMATOCRIT. 38.1 % (42.0-52.0); HEMOGLOBIN. 12.4 g/dL (14.0-18.0); LYMPHOCYTES % 32.2 % (20.0-50.0); MEAN CORPUSCULAR HEMOGLOBIN 28.5 pg (28.0-32.0); MEAN CORPUSCULAR VOLUME 87.3 fL (80.0-94.0); MEAN PLATELET VOLUME 9.6 fl (7.4-10.4); MONOCYTES % 11.5 % (2.0-8.0); NEUTROPHILS % 49.7 % (40.0-76.0); PLATELET 141 x1000/uL (130-400); RED BLOOD CELL COUNT 4.36 mill/uL (4.7-6.1)
[2019-11-14 06:34] LABS: CHLORIDE 101 mEq/L (98-107)
[2019-11-14 08:00] VITALS: BP 139/73
[2019-11-14] MEDS: DILTIAZEM HCL 300MG CAPSULE SR 24HR PO SCH (09:14)
[2019-11-14] MEDS: FUROSEMIDE 40MG/4ML VIAL IVP SCH (09:15)
[2019-11-14 12:00] VITALS: BP_SYST 105; BP_SYST 109; BP_DIAS 60; BP_DIAS 63
[2019-11-14] MEDS: CARVEDILOL 12.5MG TABLET PO SCH ×2 (12:00→21:18)
[2019-11-14 16:00] VITALS: BP 109/60
[2019-11-14] MEDS: RIVAROXABAN 20 MG TABLET PO SCH (17:24)
[2019-11-14 20:00] VITALS: BP 130/43
[2019-11-15] VITALS: BP 130/43
[2019-11-15] MEDS: IPRATROPIUM/ALBUTEROL 0.5-3(2.5)MG/3ML NEB HHN SCH ×4 (01:37→21:36)
[2019-11-15 04:00] VITALS: BP 114/62
[2019-11-15] MEDS: BLOOD SUGAR DIAGNOSTIC STRIP TEST SCH ×4 (06:30→21:00)
[2019-11-15] MEDS: INSULIN LISPRO 100 UNITS/ML SUBCUT SCH ×4 (06:30→21:00)
[2019-11-15 08:00] VITALS: BP 112/74
[2019-11-15] MEDS: DILTIAZEM HCL 300MG CAPSULE SR 24HR PO SCH (09:13)
[2019-11-15] MEDS: CLINDAMYCIN 600MG PREMIX 50 ML IV SCH ×2 (09:13→16:58)
[2019-11-15] MEDS: FAMOTIDINE 20MG TABLET PO SCH ×2 (09:14→19:59)
[2019-11-15] MEDS: CARVEDILOL 12.5MG TABLET PO SCH ×2 (09:14→19:59)
[2019-11-15] MEDS: FUROSEMIDE 40MG/4ML VIAL IVP SCH (09:14)
[2019-11-15] MEDS: HYDROCODONE/ACETAMINOPHEN 10/325MG TABLET PO PRN ×2 (09:43→19:59)
[2019-11-15 12:00] VITALS: BP 111/70
[2019-11-15 16:00] VITALS: BP_SYST 105; BP_SYST 116; BP_DIAS 60; BP_DIAS 61
[2019-11-15] MEDS: SILVER SULFADIAZINE 1% CREAM 25GM TOP SCH (16:45)
[2019-11-15] MEDS: RIVAROXABAN 20 MG TABLET PO SCH (16:58)
[2019-11-15 19:53] VITALS: BP 116/56
[2019-11-16] VITALS: BP 118/50
[2019-11-16] MEDS: CLINDAMYCIN 600MG PREMIX 50 ML IV SCH ×3 (00:21→16:08)
[2019-11-16] MEDS: IPRATROPIUM/ALBUTEROL 0.5-3(2.5)MG/3ML NEB HHN SCH ×4 (02:39→22:07)
[2019-11-16 04:00] VITALS: BP 133/61
[2019-11-16] MEDS: BLOOD SUGAR DIAGNOSTIC STRIP TEST SCH ×4 (05:26→20:27)
[2019-11-16] MEDS: INSULIN LISPRO 100 UNITS/ML SUBCUT SCH ×4 (05:26→21:00)
[2019-11-16 06:50] LABS: BASOPHILS % 1.2 % (0.0-2.0); EOSINOPHILS % 6.5 % (0.0-5.0); HEMATOCRIT. 39.9 % (42.0-52.0); HEMOGLOBIN. 12.9 g/dL (14.0-18.0); LYMPHOCYTES % 32.6 % (20.0-50.0); MEAN CORPUSCULAR HEMOGLOBIN 27.8 pg (28.0-32.0); MEAN CORPUSCULAR VOLUME 86.4 fL (80.0-94.0); MEAN PLATELET VOLUME 9.9 fl (7.4-10.4); MONOCYTES % 10.7 % (2.0-8.0); PLATELET 171 x1000/uL (130-400); RED BLOOD CELL COUNT 4.62 mill/uL (4.7-6.1); RED CELL DISTRIBUTION WIDTH 16.8 % (11.6-14.6)
[2019-11-16 07:01] LABS: CHLORIDE 97 mEq/L (98-107)
[2019-11-16 08:00] VITALS: BP 152/67
[2019-11-16] MEDS: FUROSEMIDE 40MG/4ML VIAL IVP SCH (09:16)
[2019-11-16] MEDS: CARVEDILOL 12.5MG TABLET PO SCH ×2 (09:16→20:59)
[2019-11-16] MEDS: DILTIAZEM HCL 300MG CAPSULE SR 24HR PO SCH (09:16)
[2019-11-16] MEDS: FAMOTIDINE 20MG TABLET PO SCH ×2 (09:16→20:59)
[2019-11-16] MEDS: HYDROCODONE/ACETAMINOPHEN 10/325MG TABLET PO PRN ×2 (09:24→18:29)
[2019-11-16 12:00] VITALS: BP 132/67
[2019-11-16 16:00] VITALS: BP 114/54
[2019-11-16] MEDS: SILVER SULFADIAZINE 1% CREAM 25GM TOP SCH ×2 (16:10→21:00)
[2019-11-16] MEDS: RIVAROXABAN 20 MG TABLET PO SCH (17:37)
[2019-11-16 20:00] VITALS: BP 112/53
[2019-11-17] VITALS: BP 119/60
[2019-11-17] MEDS: CLINDAMYCIN 600MG PREMIX 50 ML IV SCH ×3 (00:58→17:15)
[2019-11-17] MEDS: IPRATROPIUM/ALBUTEROL 0.5-3(2.5)MG/3ML NEB HHN SCH ×4 (01:27→21:15)
[2019-11-17 04:00] VITALS: BP 108/72
[2019-11-17] MEDS: BLOOD SUGAR DIAGNOSTIC STRIP TEST SCH ×4 (05:27→20:48)
[2019-11-17] MEDS: INSULIN LISPRO 100 UNITS/ML SUBCUT SCH ×4 (06:14→20:48)
[2019-11-17 08:00] VITALS: BP 113/60
[2019-11-17] MEDS: FAMOTIDINE 20MG TABLET PO SCH ×2 (08:25→20:41)
[2019-11-17] MEDS: FUROSEMIDE 40MG/4ML VIAL IVP SCH (08:25)
[2019-11-17] MEDS: DILTIAZEM HCL 300MG CAPSULE SR 24HR PO SCH (08:25)
[2019-11-17] MEDS: SILVER SULFADIAZINE 1% CREAM 25GM TOP SCH ×2 (08:26→22:19)
[2019-11-17] MEDS: CARVEDILOL 12.5MG TABLET PO SCH ×2 (08:26→20:41)
[2019-11-17] MEDS ORDERED: OXYCODONE HCL/ACETAMINOPHEN 5/325MG TABLET PO PRN (13:45)
[2019-11-17] MEDS: OXYCODONE HCL/ACETAMINOPHEN 5/325MG TABLET PO PRN ×2 (15:12→20:42)
[2019-11-17 16:00] VITALS: BP 118/62
[2019-11-17] MEDS: RIVAROXABAN 20 MG TABLET PO SCH (17:14)
[2019-11-17 20:00] VITALS: BP 127/74
[2019-11-18] VITALS (7 sets, daily range): BP systolic 102–126; BP diastolic 47–78
[2019-11-18] MEDS: CLINDAMYCIN 600MG PREMIX 50 ML IV SCH ×2 (01:02→08:45)
[2019-11-18] MEDS: IPRATROPIUM/ALBUTEROL 0.5-3(2.5)MG/3ML NEB HHN SCH ×4 (02:00→20:29)
[2019-11-18] MEDS: INSULIN LISPRO 100 UNITS/ML SUBCUT SCH ×4 (06:33→20:27)
[2019-11-18] MEDS: BLOOD SUGAR DIAGNOSTIC STRIP TEST SCH ×4 (06:33→20:27)
[2019-11-18] MEDS: FUROSEMIDE 40MG/4ML VIAL IVP SCH (08:44)
[2019-11-18] MEDS: FAMOTIDINE 20MG TABLET PO SCH ×2 (08:44→20:27)
[2019-11-18] MEDS: DILTIAZEM HCL 300MG CAPSULE SR 24HR PO SCH (08:45)
[2019-11-18] MEDS: CARVEDILOL 12.5MG TABLET PO SCH ×2 (09:00→20:27)
[2019-11-18] MEDS: SILVER SULFADIAZINE 1% CREAM 25GM TOP SCH (09:16)
[2019-11-18] MEDS: OXYCODONE HCL/ACETAMINOPHEN 5/325MG TABLET PO PRN ×2 (09:22→18:41)
[2019-11-18] MEDS ORDERED: COLCHICINE 0.6MG TABLET PO SCH (12:00)
[2019-11-18] MEDS ORDERED: ZINC SULFATE 220 MG ( 50 ) CAPSULE PO SCH (13:15)
[2019-11-18] MEDS ORDERED: MULTIVITAMINS,THER W-MINERALS TABLET PO SCH (13:15)
[2019-11-18] MEDS ORDERED: OXYC-523 MT (16:28)
[2019-11-18] MEDS: RIVAROXABAN 20 MG TABLET PO SCH (17:11)
== END 2019-11-18 23:25 | disposition home health service (06) | DRG 871 ==
LOC: ER 01:50 → 8WST 06:57 → ENRESERV 07:54
PROVIDERS: ADMIT Internal Medicine; ATTEND Internal Medicine
DX: A41.9 Sepsis, unspecified organism (principal); N17.0 Acute kidney failure with tubular necrosis; J96.20 Acute and chronic respiratory failure, unspecified whether with hypoxia or hypercapnia; I50.33 Acute on chronic diastolic (congestive) heart failure; L03.115 Cellulitis of right lower limb; I43 Cardiomyopathy in diseases classified elsewhere; L03.116 Cellulitis of left lower limb; I48.91 Unspecified atrial fibrillation; E11.9 Type 2 diabetes mellitus without complications; J44.9 Chronic obstructive pulmonary disease, unspecified; E66.9 Obesity, unspecified; I11.0 Hypertensive heart disease with heart failure; G47.33 Obstructive sleep apnea (adult) (pediatric); Z88.5 Allergy status to narcotic agent; Z88.8 Allergy status to other drugs, medicaments and biological substances; Z79.899 Other long term (current) drug therapy; Z99.81 Dependence on supplemental oxygen; Z68.29 Body mass index [BMI] 29.0-29.9, adult; I25.10 Atherosclerotic heart disease of native coronary artery without angina pectoris; I44.7 Left bundle-branch block, unspecified; S80.922A Unspecified superficial injury of left lower leg, initial encounter; S80.921A Unspecified superficial injury of right lower leg, initial encounter
CPT/HCPCS: 36415; 71045; 80048; 80053; 81003; 82962; 83880; 84484; 85025; 93005; 94640; 97162; 99285; C1893; J1815; J1940; J3490; J7030; J7040; J7060

== ENCOUNTER 2020-02-22 18:51 | Inpatient (IN) | payer MEDICARE, MEDICAID ==
[~2020-02-22] VITALS: Ht 180.3 cm; Wt 109.8 kg
[~2020-02-22 18:51] MED LIST changes: +DOXY100C2 MT; +OMEP40CA12 MT; +TERB250T51 MT
[2020-02-22 20:37] LABS: HEMATOCRIT. 42.7 % (42.0-52.0); HEMOGLOBIN. 13.9 g/dL (14.0-18.0); MEAN CORPUSCULAR HEMOGLOBIN 27.1 pg (28.0-32.0); MEAN CORPUSCULAR VOLUME 83.5 fL (80.0-94.0); MEAN PLATELET VOLUME 9.2 fl (7.4-10.4); PLATELET 208 x1000/uL (130-400); RED BLOOD CELL COUNT 5.11 mill/uL (4.7-6.1); RED CELL DISTRIBUTION WIDTH 16.2 % (11.6-14.6)
[2020-02-22 20:44] LABS: CHLORIDE 98 mEq/L (98-107)
[2020-02-22] MEDS ORDERED: ALBUTEROL (0.083%) 2.5MG/3ML NEB HHN STA (20:52)
[2020-02-22] MEDS ORDERED: IPRATROPIUM BROMIDE (0.02%) 0.5MG/2.5ML NEB HHN STA (20:52)
[2020-02-22] MEDS ORDERED: CEFTRIAXONE 2 G PREMIX 50 ML IV ONE (21:00)
[2020-02-22] MEDS ORDERED: AZITHROMYCIN 500 MG TABLET PO ONE (21:00)
[2020-02-22 21:07] LABS: PLATELET ESTIMATE NORMAL
[2020-02-22] MEDS ORDERED: FUROSEMIDE 40MG/4ML VIAL IVP ONE (21:45)
[2020-02-22] MEDS ORDERED: PIPERACILLIN/TAZ 3.375G PREMIX 50 ML IV ONE (21:45)
[2020-02-22] MEDS ORDERED: HYDROCODONE/ACETAMINOPHEN 5/325MG TABLET PO ONE (22:00)
[2020-02-22 22:23] LABS: CHLORIDE 98 mEq/L (98-107)
[2020-02-23] MEDS ORDERED: MORPHINE SULFATE 2 MG/ML CPJ (NOT FOR IM USE) IV PRN (06:00)
[2020-02-23] MEDS ORDERED: ONDANSETRON HCL 4MG/2ML INJ IV PRN (09:15)
[2020-02-23] MEDS: IPRATROPIUM BROMIDE (0.02%) 0.5MG/2.5ML NEB HHN SCH ×2 (09:30→16:57)
[2020-02-23] MEDS: FUROSEMIDE 40MG/4ML VIAL IVP SCH (10:05)
[2020-02-23] MEDS ORDERED: VANCOMYCIN 1500MG in DEXTROSE 5% WATER 250ML IV SCH (10:30)
[2020-02-23] MEDS: DILTIAZEM HCL 90MG TABLET PO SCH ×2 (11:36→20:00)
[2020-02-23] MEDS: HYDROCODONE/ACETAMINOPHEN 10/325MG TABLET PO PRN ×2 (11:58→20:32)
[2020-02-23] MEDS ORDERED: RIVAROXABAN 20 MG TABLET PO SCH (17:00)
[2020-02-23] MEDS ORDERED: PIPERACILLIN/TAZOBACTAM 3.375 G in DEXT 5% WATER 100 ML IV SCH (18:30)
[2020-02-23] MEDS: ACETAMINOPHEN 325MG TABLET PO PRN (22:26)
[2020-02-24] MEDS: DILTIAZEM HCL 90MG TABLET PO SCH ×4 (02:59→20:50)
[2020-02-24] MEDS: MORPHINE SULFATE 2 MG/ML CPJ (NOT FOR IM USE) IV PRN ×3 (03:12→22:01)
[2020-02-24 07:00] LABS: HEMATOCRIT. 40.8 % (42.0-52.0); HEMOGLOBIN. 12.9 g/dL (14.0-18.0); MEAN CORPUSCULAR HEMOGLOBIN 26.3 pg (28.0-32.0); MEAN CORPUSCULAR VOLUME 83.4 fL (80.0-94.0); MEAN PLATELET VOLUME 9.1 fl (7.4-10.4); PLATELET 163 x1000/uL (130-400); RED CELL DISTRIBUTION WIDTH 15.9 % (11.6-14.6)
[2020-02-24 07:07] LABS: CHLORIDE 95 mEq/L (98-107)
[2020-02-24 09:29] LABS: PLATELET ESTIMATE NORMAL
[2020-02-24 12:00] VITALS: BP 127/79
[2020-02-24] MEDS: FUROSEMIDE 40MG/4ML VIAL IVP SCH (14:10)
[2020-02-24] MEDS: PIPERACILLIN/TAZOBACTAM 3.375 G in DEXT 5% WATER 100 ML IV SCH ×2 (14:10→20:49)
[2020-02-24 16:00] VITALS: BP 134/68
[2020-02-24 16:06] VITALS: BP 136/69
[2020-02-24] MEDS ORDERED: PIPERACILLIN/TAZOBACTAM 3.375 G in DEXT 5% WATER 100 ML IV SCH (18:00)
[2020-02-24 20:00] VITALS: BP 122/63
[2020-02-24] MEDS: RIVAROXABAN 20 MG TABLET PO SCH (20:50)
[2020-02-24] MEDS: CARVEDILOL 3.125 MG TABLET PO SCH (21:00)
[2020-02-25] VITALS: BP 125/60
[2020-02-25] MEDS: DILTIAZEM HCL 90MG TABLET PO SCH ×4 (01:13→18:00)
[2020-02-25] MEDS: PIPERACILLIN/TAZOBACTAM 3.375 G in DEXT 5% WATER 100 ML IV SCH ×7 (01:13→21:55)
[2020-02-25] MEDS: ACETAMINOPHEN 325MG TABLET PO PRN ×2 (01:14→09:28)
[2020-02-25] MEDS: MORPHINE SULFATE 2 MG/ML CPJ (NOT FOR IM USE) IV PRN ×2 (03:53→11:40)
[2020-02-25 04:00] VITALS: BP 124/64
[2020-02-25] MEDS: VANCOMYCIN 1500MG in DEXTROSE 5% WATER 250ML IV SCH (04:53)
[2020-02-25] MEDS ORDERED: ALBUTEROL 6.7GM HFA INHALER ORI PRN (06:30)
[2020-02-25 06:33] LABS: BASOPHILS % 0.7 % (0.0-2.0); EOSINOPHILS % 3.7 % (0.0-5.0); HEMATOCRIT. 40.8 % (42.0-52.0); HEMOGLOBIN. 13.1 g/dL (14.0-18.0); LYMPHOCYTES % 8.5 % (20.0-50.0); MEAN CORPUSCULAR HEMOGLOBIN 26.8 pg (28.0-32.0); MEAN CORPUSCULAR VOLUME 83.7 fL (80.0-94.0); MEAN PLATELET VOLUME 9.3 fl (7.4-10.4); MONOCYTES % 6.4 % (2.0-8.0); NEUTROPHILS % 80.7 % (40.0-76.0); PLATELET 170 x1000/uL (130-400); RED BLOOD CELL COUNT 4.88 mill/uL (4.7-6.1); RED CELL DISTRIBUTION WIDTH 15.7 % (11.6-14.6)
[2020-02-25 06:57] LABS: CHLORIDE 92 mEq/L (98-107)
[2020-02-25 08:00] VITALS: BP 115/62
[2020-02-25] MEDS ORDERED: POTASSIUM CHLORIDE 20MEQ/PACKET PO SCH ×2 (09:00→13:00)
[2020-02-25] MEDS ORDERED: ENOXAPARIN 40MG/0.4ML SYR SUBCUT SCH ×2 (09:00)
[2020-02-25] MEDS: FUROSEMIDE 40MG/4ML VIAL IVP SCH (09:09)
[2020-02-25] MEDS: CARVEDILOL 3.125 MG TABLET PO SCH (09:29)
[2020-02-25 12:00] VITALS: BP 127/66
[2020-02-25 16:00] VITALS: BP 99/60
[2020-02-25] MEDS: RIVAROXABAN 20 MG TABLET PO SCH (16:44)
[2020-02-25] MEDS: HYDROCODONE/ACETAMINOPHEN 10/325MG TABLET PO PRN (16:45)
[2020-02-25] MEDS: MAGNESIUM 2 G PREMIX 50 ML IV NR ×2 (18:00→21:55)
[2020-02-25 20:00] VITALS: BP 138/66
[2020-02-25] MEDS: CARVEDILOL 6.25 MG TABLET PO SCH (21:55)
[2020-02-26] VITALS (7 sets, daily range): BP systolic 113–140; BP diastolic 70–90
[2020-02-26] MEDS: DILTIAZEM HCL 90MG TABLET PO SCH ×5 (00:35→23:52)
[2020-02-26] MEDS: VANCOMYCIN 1500MG in DEXTROSE 5% WATER 250ML IV SCH ×2 (00:35→18:01)
[2020-02-26] MEDS: MORPHINE SULFATE 2 MG/ML CPJ (NOT FOR IM USE) IV PRN ×4 (01:50→23:53)
[2020-02-26] MEDS: PIPERACILLIN/TAZOBACTAM 3.375 G in DEXT 5% WATER 100 ML IV SCH ×4 (01:50→20:35)
[2020-02-26 07:57] LABS: CHLORIDE 91 mEq/L (98-107)
[2020-02-26] MEDS: FUROSEMIDE 40MG/4ML VIAL IVP SCH (10:13)
[2020-02-26] MEDS: CARVEDILOL 6.25 MG TABLET PO SCH ×2 (10:13→20:36)
[2020-02-26] MEDS: MAGNESIUM OXIDE 400MG TABLET PO SCH (10:14)
[2020-02-26] MEDS ORDERED: LIDOCAINE HCL 1% 20ML VIAL (Pyxis) INJ ONE (12:46)
[2020-02-26] MEDS ORDERED: SODIUM BICARBONATE 4% (2.4MEQ) 5ML VIAL IV ONE (12:46)
[2020-02-26] MEDS: RIVAROXABAN 20 MG TABLET PO SCH (18:01)
[2020-02-26] MEDS: LORAZEPAM 2MG/ML CPJ IV PRN (20:35)
[2020-02-27] VITALS: BP 148/78
[2020-02-27] MEDS: FUROSEMIDE 40MG/4ML VIAL IVP SCH ×3 (00:55→20:35)
[2020-02-27] MEDS: PIPERACILLIN/TAZOBACTAM 3.375 G in DEXT 5% WATER 100 ML IV SCH ×4 (01:08→20:35)
[2020-02-27] MEDS: MORPHINE SULFATE 2 MG/ML CPJ (NOT FOR IM USE) IV PRN (03:49)
[2020-02-27 04:00] VITALS: BP 121/61
[2020-02-27] MEDS: LORAZEPAM 2MG/ML CPJ IV PRN (04:59)
[2020-02-27] MEDS: DILTIAZEM HCL 90MG TABLET PO SCH ×3 (05:16→17:36)
[2020-02-27] MEDS: CARVEDILOL 6.25 MG TABLET PO SCH ×2 (09:52→20:43)
[2020-02-27] MEDS: MAGNESIUM OXIDE 400MG TABLET PO SCH (09:52)
[2020-02-27 11:01] LABS: BG CARBOXYHEMOGLOBIN 0.9 % (0.5-1.5); BG DEOXYHEMOGLOBIN 2.9 % (0.0-5.0); BG HCO3 ACT 45.8 mmol/L (22.0-26.0); BG METHEMOGLOBIN 0.3 % (0.0-1.5); BG OXYGEN SATURATION 97.1 % (92.0-98.5); BG OXYHEMOGLOBIN 95.9 % (94.0-97.0); BG PH 7.274 (7.350-7.450); BG PO2 98.8 mmHg (75.0-100.0); BG SAMPLE SITE RIGHT RADIAL; BG TOTAL HEMOGLOBIN 14.2 g/dL (12.0-18.0); BG VENT MODE NASAL CANNULA
[2020-02-27 12:00] VITALS: BP 110/72
[2020-02-27] MEDS: VANCOMYCIN 1500MG in DEXTROSE 5% WATER 250ML IV SCH (12:01)
[2020-02-27] MEDS: METHYLPREDNISOLONE SOD SUCC 40 MG/ML VIAL IV SCH ×2 (14:27→21:11)
[2020-02-27 16:55] LABS: CHLORIDE 90 mEq/L (98-107)
[2020-02-27] MEDS: RIVAROXABAN 20 MG TABLET PO SCH (17:00)
[2020-02-27 20:00] VITALS: BP 112/78
[2020-02-27 20:53] LABS: HEMATOCRIT. 39.9 % (42.0-52.0); HEMOGLOBIN. 12.5 g/dL (14.0-18.0); MEAN CORPUSCULAR HEMOGLOBIN 26.3 pg (28.0-32.0); MEAN CORPUSCULAR VOLUME 84.1 fL (80.0-94.0); MEAN PLATELET VOLUME 9.5 fl (7.4-10.4); PLATELET 217 x1000/uL (130-400); RED BLOOD CELL COUNT 4.74 mill/uL (4.7-6.1); RED CELL DISTRIBUTION WIDTH 16.2 % (11.6-14.6)
[2020-02-27 22:20] LABS: PLATELET ESTIMATE NORMAL
[2020-02-28] VITALS: BP 133/73
[2020-02-28] MEDS: DILTIAZEM HCL 90MG TABLET PO SCH ×4 (01:06→18:00)
[2020-02-28] MEDS: PIPERACILLIN/TAZOBACTAM 3.375 G in DEXT 5% WATER 100 ML IV SCH ×4 (01:07→21:04)
[2020-02-28] MEDS: MORPHINE SULFATE 2 MG/ML CPJ (NOT FOR IM USE) IV PRN ×3 (03:45→21:05)
[2020-02-28 04:00] VITALS: BP 109/72
[2020-02-28 04:31] LABS: HEMATOCRIT. 39.3 % (42.0-52.0); HEMOGLOBIN. 12.6 g/dL (14.0-18.0); MEAN CORPUSCULAR HEMOGLOBIN 26.8 pg (28.0-32.0); MEAN CORPUSCULAR VOLUME 83.3 fL (80.0-94.0); MEAN PLATELET VOLUME 9.5 fl (7.4-10.4); PLATELET 258 x1000/uL (130-400); RED BLOOD CELL COUNT 4.72 mill/uL (4.7-6.1); RED CELL DISTRIBUTION WIDTH 15.7 % (11.6-14.6)
[2020-02-28 04:55] LABS: CHLORIDE 89 mEq/L (98-107)
[2020-02-28 05:03] LABS: VANCOMYCIN TROUGH 16.6 ug/mL (5.0-10.0)
[2020-02-28] MEDS: METHYLPREDNISOLONE SOD SUCC 40 MG/ML VIAL IV SCH ×3 (05:29→21:04)
[2020-02-28] MEDS: VANCOMYCIN 1500MG in DEXTROSE 5% WATER 250ML IV SCH (05:34)
[2020-02-28 08:00] VITALS: BP 139/63
[2020-02-28] MEDS: IPRATROPIUM BROMIDE (0.02%) 0.5MG/2.5ML NEB HHN SCH ×2 (09:33→13:09)
[2020-02-28] MEDS: FUROSEMIDE 40MG/4ML VIAL IVP SCH ×2 (10:17→21:04)
[2020-02-28] MEDS: MAGNESIUM OXIDE 400MG TABLET PO SCH (10:17)
[2020-02-28] MEDS: CARVEDILOL 6.25 MG TABLET PO SCH ×2 (10:18→21:04)
[2020-02-28 12:00] VITALS: BP 143/63
[2020-02-28 15:24] LABS: ATYPICAL LYMPHOCYTES 1
[2020-02-28 15:25] LABS: PLATELET ESTIMATE NORMAL
[2020-02-28 16:00] VITALS: BP 148/64
[2020-02-28] MEDS: RIVAROXABAN 20 MG TABLET PO SCH (18:00)
[2020-02-28 20:00] VITALS: BP 142/58
[2020-02-29] VITALS: BP 132/74
[2020-02-29] MEDS: DILTIAZEM HCL 90MG TABLET PO SCH ×4 (00:03→17:39)
[2020-02-29] MEDS: PIPERACILLIN/TAZOBACTAM 3.375 G in DEXT 5% WATER 100 ML IV SCH ×4 (02:15→22:08)
[2020-02-29 04:00] VITALS: BP 92/68
[2020-02-29] MEDS: MORPHINE SULFATE 2 MG/ML CPJ (NOT FOR IM USE) IV PRN ×4 (06:05→22:11)
[2020-02-29] MEDS: METHYLPREDNISOLONE SOD SUCC 40 MG/ML VIAL IV SCH ×3 (06:06→22:09)
[2020-02-29 07:56] VITALS: BP 131/75
[2020-02-29] MEDS: FUROSEMIDE 100MG/10ML VIAL IVP SCH ×3 (08:45→22:08)
[2020-02-29] MEDS: MAGNESIUM OXIDE 400MG TABLET PO SCH (08:46)
[2020-02-29] MEDS: CARVEDILOL 6.25 MG TABLET PO SCH ×2 (08:46→22:10)
[2020-02-29 11:48] VITALS: BP 120/58
[2020-02-29] MEDS: IPRATROPIUM BROMIDE (0.02%) 0.5MG/2.5ML NEB HHN SCH ×2 (13:55→21:45)
[2020-02-29 15:55] LABS: HEMATOCRIT. 41.1 % (42.0-52.0); HEMOGLOBIN. 12.7 g/dL (14.0-18.0); MEAN CORPUSCULAR VOLUME 83.9 fL (80.0-94.0); MEAN PLATELET VOLUME 9.3 fl (7.4-10.4); PLATELET 307 x1000/uL (130-400); RED CELL DISTRIBUTION WIDTH 15.6 % (11.6-14.6)
[2020-02-29 16:00] VITALS: BP 127/86
[2020-02-29 16:01] LABS: CHLORIDE 87 mEq/L (98-107)
[2020-02-29 17:25] LABS: PLATELET ESTIMATE NORMAL
[2020-02-29] MEDS: RIVAROXABAN 20 MG TABLET PO SCH (17:39)
[2020-02-29 20:00] VITALS: BP 135/75
[2020-03-01 04:00] VITALS: BP 161/70
[2020-03-01] MEDS: IPRATROPIUM BROMIDE (0.02%) 0.5MG/2.5ML NEB HHN SCH ×3 (04:30→15:00)
[2020-03-01] MEDS: METHYLPREDNISOLONE SOD SUCC 40 MG/ML VIAL IV SCH ×3 (06:23→20:49)
[2020-03-01] MEDS: DILTIAZEM HCL 90MG TABLET PO SCH ×5 (06:24→23:53)
[2020-03-01 08:00] VITALS: BP 148/77
[2020-03-01 08:24] LABS: CHLORIDE 86 mEq/L (98-107)
[2020-03-01 08:29] LABS: HEMOGLOBIN. 12.7 g/dL (14.0-18.0); MEAN CORPUSCULAR HEMOGLOBIN 26.2 pg (28.0-32.0); MEAN CORPUSCULAR VOLUME 82.8 fL (80.0-94.0); MEAN PLATELET VOLUME 9.4 fl (7.4-10.4); PLATELET 314 x1000/uL (130-400); RED BLOOD CELL COUNT 4.83 mill/uL (4.7-6.1); RED CELL DISTRIBUTION WIDTH 16.2 % (11.6-14.6)
[2020-03-01 08:49] VITALS: BP 148/77
[2020-03-01] MEDS: FUROSEMIDE 100MG/10ML VIAL IVP SCH ×2 (09:48→20:49)
[2020-03-01] MEDS: MAGNESIUM OXIDE 400MG TABLET PO SCH (09:49)
[2020-03-01] MEDS: CARVEDILOL 6.25 MG TABLET PO SCH ×2 (09:49→20:50)
[2020-03-01 11:45] LABS: PLATELET ESTIMATE NORMAL
[2020-03-01 12:00] VITALS: BP 164/56
[2020-03-01] MEDS ORDERED: POTASSIUM CHLORIDE 20MEQ/PACKET PO NR (14:15)
[2020-03-01] MEDS: RIVAROXABAN 20 MG TABLET PO SCH (18:05)
[2020-03-01] MEDS: MORPHINE SULFATE 2 MG/ML CPJ (NOT FOR IM USE) IV PRN ×2 (18:06→23:53)
[2020-03-01 20:00] VITALS: BP 124/58
[2020-03-01] MEDS: LORAZEPAM 2MG/ML CPJ IV PRN (20:54)
[2020-03-02] VITALS: BP 115/64
[2020-03-02 04:00] VITALS: BP 146/60
[2020-03-02] MEDS: METHYLPREDNISOLONE SOD SUCC 40 MG/ML VIAL IV SCH ×3 (05:25→20:53)
[2020-03-02] MEDS: DILTIAZEM HCL 90MG TABLET PO SCH ×3 (05:26→18:25)
[2020-03-02 08:00] VITALS: BP 127/46
[2020-03-02] MEDS: MAGNESIUM OXIDE 400MG TABLET PO SCH (08:50)
[2020-03-02] MEDS: FUROSEMIDE 100MG/10ML VIAL IVP SCH ×2 (08:50→20:52)
[2020-03-02] MEDS: CARVEDILOL 6.25 MG TABLET PO SCH ×2 (08:52→20:53)
[2020-03-02] MEDS: IPRATROPIUM BROMIDE (0.02%) 0.5MG/2.5ML NEB HHN SCH ×2 (09:00→13:14)
[2020-03-02] MEDS: MORPHINE SULFATE 2 MG/ML CPJ (NOT FOR IM USE) IV PRN ×2 (09:05→14:09)
[2020-03-02] MEDS ORDERED: POTASSIUM CHLORIDE 20MEQ/PACKET PO NR (09:15)
[2020-03-02 10:59] LABS: BG BASE EXCESS 17.2 mmol/L (-2.0-2.0); BG CARBOXYHEMOGLOBIN 0.7 % (0.5-1.5); BG DEOXYHEMOGLOBIN 4.8 % (0.0-5.0); BG METHEMOGLOBIN 0.1 % (0.0-1.5); BG OXYGEN SATURATION 95.2 % (92.0-98.5); BG OXYHEMOGLOBIN 94.4 % (94.0-97.0); BG PCO2 74.1 mmHg (35.0-45.0); BG PH 7.411 (7.350-7.450); BG PO2 77.8 mmHg (75.0-100.0); BG SAMPLE SITE RIGHT RADIAL; BG TOTAL HEMOGLOBIN 14.3 g/dL (12.0-18.0); BG VENT MODE NASAL CANNULA
[2020-03-02 12:00] VITALS: BP 109/54
[2020-03-02 16:00] VITALS: BP 122/68
[2020-03-02] MEDS: RIVAROXABAN 20 MG TABLET PO SCH (18:26)
[2020-03-02 20:00] VITALS: BP 122/68
[2020-03-02 21:07] LABS: CHLORIDE 86 mEq/L (98-107)
[2020-03-02 21:09] LABS: HEMATOCRIT. 40.4 % (42.0-52.0); HEMOGLOBIN. 12.9 g/dL (14.0-18.0); MEAN CORPUSCULAR HEMOGLOBIN 26.3 pg (28.0-32.0); MEAN CORPUSCULAR VOLUME 82.6 fL (80.0-94.0); PLATELET 321 x1000/uL (130-400)
[2020-03-02 21:44] LABS: PLATELET ESTIMATE NORMAL
[2020-03-03] VITALS: BP 137/71
[2020-03-03] MEDS: DILTIAZEM HCL 90MG TABLET PO SCH ×4 (00:33→18:02)
[2020-03-03] MEDS: MORPHINE SULFATE 2 MG/ML CPJ (NOT FOR IM USE) IV PRN ×2 (01:01→06:25)
[2020-03-03 04:00] VITALS: BP 114/57
[2020-03-03] MEDS: METHYLPREDNISOLONE SOD SUCC 40 MG/ML VIAL IV SCH ×3 (06:24→21:00)
[2020-03-03] MEDS ORDERED: RIVA20TA MT (07:56)
[2020-03-03] MEDS ORDERED: CARV6.2548 MT (07:56)
[2020-03-03] MEDS ORDERED: DILT360C27 MT (07:56)
[2020-03-03] MEDS ORDERED: IPRA3AMP9 NEB (07:56)
[2020-03-03] MEDS ORDERED: ALBU18HF2 IH (07:56)
[2020-03-03] MEDS ORDERED: FLUT1DIS3 INH (07:56)
[2020-03-03] MEDS ORDERED: FURO-151 MT (07:56)
[2020-03-03] MEDS ORDERED: P20 MT (07:56)
[2020-03-03 08:00] VITALS: BP 132/68
[2020-03-03] MEDS: MAGNESIUM OXIDE 400MG TABLET PO SCH (09:00)
[2020-03-03] MEDS: CARVEDILOL 6.25 MG TABLET PO SCH ×2 (09:00→20:54)
[2020-03-03] MEDS: FUROSEMIDE 100MG/10ML VIAL IVP SCH ×2 (09:00→20:53)
[2020-03-03 11:18] VITALS: BP 132/68
[2020-03-03] MEDS: IPRATROPIUM BROMIDE (0.02%) 0.5MG/2.5ML NEB HHN SCH ×2 (15:30→23:00)
[2020-03-03] MEDS: RIVAROXABAN 20 MG TABLET PO SCH (18:01)
[2020-03-03 20:00] VITALS: BP 142/51
[2020-03-03] MEDS: HYDROCODONE/ACETAMINOPHEN 10/325MG TABLET PO PRN (20:54)
[2020-03-04] VITALS: BP 145/55
[2020-03-04] MEDS: DILTIAZEM HCL 90MG TABLET PO SCH ×4 (00:29→19:07)
[2020-03-04 04:00] VITALS: BP 130/49
[2020-03-04] MEDS: METHYLPREDNISOLONE SOD SUCC 40 MG/ML VIAL IV SCH ×4 (05:16→22:24)
[2020-03-04 08:00] VITALS: BP 147/54
[2020-03-04] MEDS: CARVEDILOL 6.25 MG TABLET PO SCH ×3 (09:00→20:23)
[2020-03-04] MEDS: MAGNESIUM OXIDE 400MG TABLET PO SCH (10:14)
[2020-03-04] MEDS: FUROSEMIDE 100MG/10ML VIAL IVP SCH ×2 (10:14→20:22)
[2020-03-04] MEDS: IPRATROPIUM BROMIDE (0.02%) 0.5MG/2.5ML NEB HHN SCH (10:27)
[2020-03-04 12:00] VITALS: BP 122/47
[2020-03-04] MEDS ORDERED: HYDR-4009 MT (12:43)
[2020-03-04] MEDS ORDERED: MORPHINE SULFATE 4 MG/ML CPJ (NOT FOR IM USE) IV SCH (12:45)
[2020-03-04 16:00] VITALS: BP 140/97
[2020-03-04] MEDS ORDERED: DEXTROSE 50% WATER 50ML SYRINGE IV PRN (16:15)
[2020-03-04] MEDS: BLOOD SUGAR DIAGNOSTIC STRIP TEST SCH ×2 (17:41→20:15)
[2020-03-04] MEDS: RIVAROXABAN 20 MG TABLET PO SCH (17:45)
[2020-03-04] MEDS: INSULIN LISPRO 100 UNITS/ML SUBCUT SCH ×2 (17:47→20:22)
[2020-03-04 20:00] VITALS: BP 164/56
[2020-03-04] MEDS ORDERED: MORPHINE SULFATE 2 MG/ML CPJ (NOT FOR IM USE) IV PRN (21:15)
[2020-03-05] VITALS: BP 147/60
[2020-03-05 04:00] VITALS: BP 130/51
[2020-03-05] MEDS: BLOOD SUGAR DIAGNOSTIC STRIP TEST SCH ×4 (05:28→21:06)
[2020-03-05] MEDS: DILTIAZEM HCL 90MG TABLET PO SCH ×5 (05:28→23:59)
[2020-03-05] MEDS: METHYLPREDNISOLONE SOD SUCC 40 MG/ML VIAL IV SCH ×2 (05:28→13:08)
[2020-03-05] MEDS: INSULIN LISPRO 100 UNITS/ML SUBCUT SCH ×4 (05:29→21:08)
[2020-03-05 08:00] VITALS: BP 146/52
[2020-03-05] MEDS: FUROSEMIDE 100MG/10ML VIAL IVP SCH ×2 (09:10→22:07)
[2020-03-05] MEDS: CARVEDILOL 6.25 MG TABLET PO SCH ×2 (09:10→20:58)
[2020-03-05] MEDS: MAGNESIUM OXIDE 400MG TABLET PO SCH (09:10)
[2020-03-05] MEDS: HYDROCODONE/ACETAMINOPHEN 10/325MG TABLET PO PRN ×3 (09:11→22:19)
[2020-03-05 11:53] LABS: HEMATOCRIT. 45.1 % (42.0-52.0); HEMOGLOBIN. 14.3 g/dL (14.0-18.0); MEAN CORPUSCULAR VOLUME 82.2 fL (80.0-94.0); MEAN PLATELET VOLUME 9.2 fl (7.4-10.4); PLATELET 300 x1000/uL (130-400); RED BLOOD CELL COUNT 5.49 mill/uL (4.7-6.1)
[2020-03-05 12:00] VITALS: BP 100/46
[2020-03-05 12:18] LABS: CHLORIDE 82 mEq/L (98-107)
[2020-03-05] MEDS ORDERED: POTASSIUM CHLORIDE 20MEQ TABLET SR PO SCH (13:00)
[2020-03-05 14:15] LABS: PLATELET ESTIMATE NORMAL
[2020-03-05 14:42] LABS: CLARITY URINE CLEAR (CLEAR); COLOR URINE YELLOW (YELLOW); KETONES URINE NEGATIVE (NEGATIVE); LEUKOCYTE ESTERASE URINE NEGATIVE (NEGATIVE); NITRITE URINE NEGATIVE (NEGATIVE); OCCULT BLOOD URINE NEGATIVE (NEGATIVE); PH URINE 5.5 (4.5-8.0); PROTEIN URINE NEGATIVE (NEGATIVE); SPECIFIC GRAVITY URINE 1.015 (1.005-1.030); UROBILINOGEN URINE 0.2 E.U./dL (0.2-1.0)
[2020-03-05] MEDS: IPRATROPIUM BROMIDE (0.02%) 0.5MG/2.5ML NEB HHN SCH ×2 (15:03→21:00)
[2020-03-05 16:00] VITALS: BP 126/43
[2020-03-05] MEDS: RIVAROXABAN 20 MG TABLET PO SCH (17:38)
[2020-03-05 20:00] VITALS: BP 126/42
[2020-03-05] MEDS: INSULIN GLARGINE UD 100 UNITS/ML SYR SUBCUT SCH (21:47)
[2020-03-06] VITALS: BP 128/58
[2020-03-06 04:00] VITALS: BP 159/66
[2020-03-06] MEDS: IPRATROPIUM BROMIDE (0.02%) 0.5MG/2.5ML NEB HHN SCH ×2 (04:50→21:06)
[2020-03-06] MEDS: DILTIAZEM HCL 90MG TABLET PO SCH ×4 (05:43→23:41)
[2020-03-06] MEDS: BLOOD SUGAR DIAGNOSTIC STRIP TEST SCH ×4 (06:13→21:30)
[2020-03-06] MEDS: INSULIN LISPRO 100 UNITS/ML SUBCUT SCH ×4 (06:39→22:12)
[2020-03-06 08:00] VITALS: BP 149/55
[2020-03-06] MEDS: MAGNESIUM OXIDE 400MG TABLET PO SCH (09:41)
[2020-03-06] MEDS: PREDNISONE 20MG TABLET PO SCH (09:41)
[2020-03-06] MEDS: FUROSEMIDE 100MG/10ML VIAL IVP SCH ×2 (09:42→21:29)
[2020-03-06] MEDS: CARVEDILOL 6.25 MG TABLET PO SCH ×3 (09:42→21:29)
[2020-03-06] MEDS: INSULIN GLARGINE UD 100 UNITS/ML SYR SUBCUT SCH ×2 (10:27→22:21)
[2020-03-06 12:00] VITALS: BP 146/80
[2020-03-06 16:00] VITALS: BP 142/65
[2020-03-06] MEDS: RIVAROXABAN 20 MG TABLET PO SCH (18:32)
[2020-03-06 20:00] VITALS: BP 151/59
[2020-03-06] MEDS: HYDROCODONE/ACETAMINOPHEN 10/325MG TABLET PO PRN (23:41)
[2020-03-07] VITALS: BP 144/60
[2020-03-07] MEDS: IPRATROPIUM BROMIDE (0.02%) 0.5MG/2.5ML NEB HHN SCH ×3 (02:30→15:30)
[2020-03-07 04:00] VITALS: BP 140/46
[2020-03-07] MEDS: DILTIAZEM HCL 90MG TABLET PO SCH ×3 (06:00→18:00)
[2020-03-07] MEDS: INSULIN LISPRO 100 UNITS/ML SUBCUT SCH ×3 (06:54→17:30)
[2020-03-07] MEDS: CARVEDILOL 6.25 MG TABLET PO SCH ×2 (09:00→09:53)
[2020-03-07] MEDS: FUROSEMIDE 100MG/10ML VIAL IVP SCH (09:51)
[2020-03-07] MEDS: BLOOD SUGAR DIAGNOSTIC STRIP TEST SCH ×3 (10:00→17:00)
[2020-03-07] MEDS: PREDNISONE 20MG TABLET PO SCH (10:03)
[2020-03-07] MEDS: MAGNESIUM OXIDE 400MG TABLET PO SCH (10:03)
[2020-03-07] MEDS: INSULIN GLARGINE UD 100 UNITS/ML SYR SUBCUT SCH (12:23)
[2020-03-07 15:59] VITALS: BP 145/59
[2020-03-07] MEDS: RIVAROXABAN 20 MG TABLET PO SCH (18:15)
[2020-03-07] MEDS ORDERED: CARVEDILOL 12.5MG TABLET PO SCH (21:00)
== END 2020-03-07 19:25 | disposition home health service (06) | DRG 871 ==
LOC: ER 18:51 → 8WST 23:44 → ENRESERV 02-24 08:16 → 5WST 02-25 21:41 → 4WST 03-06 13:59
PROVIDERS: ADMIT Internal Medicine; ATTEND Internal Medicine
PROC: 02HV33Z Insertion of Infusion Device into Superior Vena Cava, Percutaneous Approach (ICD-10-PCS; 2020-02-26)
PROC: B548ZZA Ultrasonography of Superior Vena Cava, Guidance (ICD-10-PCS; 2020-02-26)
PROC: 5A09457 Assistance with Respiratory Ventilation, 24-96 Consecutive Hours, Continuous Positive Airway Pressure (ICD-10-PCS; principal; 2020-02-27)
DX: A41.9 Sepsis, unspecified organism (principal); E43 Unspecified severe protein-calorie malnutrition; I50.33 Acute on chronic diastolic (congestive) heart failure; J96.21 Acute and chronic respiratory failure with hypoxia; G92 Toxic encephalopathy; E87.1 Hypo-osmolality and hyponatremia; L03.115 Cellulitis of right lower limb; E87.4 Mixed disorder of acid-base balance; E72.20 Disorder of urea cycle metabolism, unspecified; I42.0 Dilated cardiomyopathy; I43 Cardiomyopathy in diseases classified elsewhere; I48.92 Unspecified atrial flutter; I48.91 Unspecified atrial fibrillation; I11.0 Hypertensive heart disease with heart failure; E87.5 Hyperkalemia; E87.6 Hypokalemia; E83.42 Hypomagnesemia; E66.01 Morbid (severe) obesity due to excess calories; E11.51 Type 2 diabetes mellitus with diabetic peripheral angiopathy without gangrene; G47.33 Obstructive sleep apnea (adult) (pediatric); I25.10 Atherosclerotic heart disease of native coronary artery without angina pectoris; I48.0 Paroxysmal atrial fibrillation; J44.9 Chronic obstructive pulmonary disease, unspecified; Z20.822 Contact with and (suspected) exposure to COVID-19; Z79.01 Long term (current) use of anticoagulants; Z79.899 Other long term (current) drug therapy; Z81.8 Family history of other mental and behavioral disorders; Z82.49 Family history of ischemic heart disease and other diseases of the circulatory system; Z91.19 Patient's noncompliance with other medical treatment and regimen; Z99.81 Dependence on supplemental oxygen; Z68.33 Body mass index [BMI] 33.0-33.9, adult; Z79.891 Long term (current) use of opiate analgesic
CPT/HCPCS: 36415; 36600; 71045; 76937; 80048; 80053; 80202; 81003; 82140; 82375; 82805; 82962; 83605; 83735; 83880; 84145; 84484; 85025; 87635; 93005; 94640; 96365; 96366; 96367; 96375; 97110; 97162; 97166; 97530; 99291; C1725; C1887; C1893; J1815; J1940; J2060; J2270; J2543; J2920; J3370; J3475; J3490; J7040; J7060; J7512; A4315

== ENCOUNTER 2020-03-11 16:17 | Inpatient (IN) | payer MEDICARE, MEDICAID ==
[~2020-03-11] VITALS: Ht 182.9 cm; Wt 105.7 kg
[~2020-03-11 16:17] MED LIST changes: +ALBU18HF2 IH; -DOXY100C2 MT; +HYDR-4009 MT; +IPRA3AMP9 NEB; +P20 MT
[2020-03-11] MEDS ORDERED: MORPHINE SULFATE 4 MG/ML CPJ (NOT FOR IM USE) IV STA (17:18)
[2020-03-11] MEDS ORDERED: ONDANSETRON HCL 4MG/2ML INJ IV STA (17:18)
[2020-03-11] MEDS ORDERED: SODIUM CHLORIDE 0.9% 1,000 ML IV ONE (17:30)
[2020-03-11 17:45] LABS: CLARITY URINE CLEAR (CLEAR); COLOR URINE YELLOW (YELLOW); KETONES URINE NEGATIVE (NEGATIVE); LEUKOCYTE ESTERASE URINE 1+ (NEGATIVE); NITRITE URINE NEGATIVE (NEGATIVE); OCCULT BLOOD URINE NEGATIVE (NEGATIVE); PH URINE 7.5 (4.5-8.0); PROTEIN URINE NEGATIVE (NEGATIVE); SPECIFIC GRAVITY URINE 1.015 (1.005-1.030)
[2020-03-11 18:04] LABS: HEMATOCRIT. 47.9 % (42.0-52.0); HEMOGLOBIN. 15.2 g/dL (14.0-18.0); MEAN CORPUSCULAR HEMOGLOBIN 25.9 pg (28.0-32.0); MEAN CORPUSCULAR VOLUME 81.7 fL (80.0-94.0); MEAN PLATELET VOLUME 9.8 fl (7.4-10.4); PLATELET 197 x1000/uL (130-400); RED BLOOD CELL COUNT 5.86 mill/uL (4.7-6.1)
[2020-03-11 18:09] LABS: CHLORIDE 91 mEq/L (98-107)
[2020-03-11 18:14] LABS: PLATELET ESTIMATE NORMAL
[2020-03-11 18:26] LABS: INR 1.1; PROTHROMBIN TIME 11.8 sec (9.6-11.0)
[2020-03-11] MEDS ORDERED: PIPERACILLIN/TAZ 3.375G PREMIX 50 ML IV ONE (19:15)
[2020-03-11] MEDS ORDERED: VANCOMYCIN 1 G PREMIX 200 ML IV ONE (19:15)
[2020-03-11] MEDS ORDERED: IPRATROPIUM/ALBUTEROL 0.5-3(2.5)MG/3ML NEB HHN PRN (21:30)
[2020-03-11] MEDS ORDERED: DEXTROSE 50% WATER 50ML SYRINGE IV PRN (21:30)
[2020-03-11] MEDS: PIPERACILLIN/TAZOBACTAM 3.375 G in DEXT 5% WATER 100 ML IV SCH (22:00)
[2020-03-11] MEDS ORDERED: SODIUM CHLORIDE 0.9% 1000ML BAG (SEPSIS BOLUS) IV ONE (22:45)
[2020-03-11] MEDS: MORPHINE SULFATE 4 MG/ML CPJ (NOT FOR IM USE) IV PRN (22:51)
[2020-03-11] MEDS: BLOOD SUGAR DIAGNOSTIC STRIP TEST SCH (22:59)
[2020-03-11] MEDS: INSULIN LISPRO 100 UNITS/ML SUBCUT SCH (22:59)
[2020-03-12] MEDS: PIPERACILLIN/TAZOBACTAM 3.375 G in DEXT 5% WATER 100 ML IV SCH ×3 (04:50→17:45)
[2020-03-12] MEDS ORDERED: VANCOMYCIN 750 MG PREMIX 150 ML IV SCH (05:00)
[2020-03-12] MEDS: BLOOD SUGAR DIAGNOSTIC STRIP TEST SCH ×4 (06:30→21:58)
[2020-03-12] MEDS: INSULIN LISPRO 100 UNITS/ML SUBCUT SCH ×4 (06:31→21:00)
[2020-03-12] MEDS: MORPHINE SULFATE 4 MG/ML CPJ (NOT FOR IM USE) IV PRN ×3 (06:46→22:51)
[2020-03-12] MEDS: FUROSEMIDE 40MG/4ML VIAL IVP SCH (08:34)
[2020-03-12 12:00] VITALS: BP 162/74
[2020-03-12] MEDS: VANCOMYCIN 750 MG PREMIX 150 ML IV SCH ×2 (12:14→17:20)
[2020-03-12 12:27] VITALS: BP 159/80
[2020-03-12 16:00] VITALS: BP 95/62
[2020-03-12] MEDS: RIVAROXABAN 20 MG TABLET PO SCH (16:38)
[2020-03-12] MEDS ORDERED: LACTULOSE 20G/30ML UDC PO NR (17:45)
[2020-03-12 20:00] VITALS: BP 116/53
[2020-03-13] VITALS: BP 139/70
[2020-03-13] MEDS: PIPERACILLIN/TAZOBACTAM 3.375 G in DEXT 5% WATER 100 ML IV SCH ×3 (00:35→12:34)
[2020-03-13] MEDS: VANCOMYCIN 750 MG PREMIX 150 ML IV SCH ×3 (02:26→18:39)
[2020-03-13] MEDS: MORPHINE SULFATE 4 MG/ML CPJ (NOT FOR IM USE) IV PRN ×3 (06:07→20:42)
[2020-03-13] MEDS: BLOOD SUGAR DIAGNOSTIC STRIP TEST SCH ×4 (06:08→20:04)
[2020-03-13] MEDS: INSULIN LISPRO 100 UNITS/ML SUBCUT SCH ×4 (07:18→20:47)
[2020-03-13 09:18] VITALS: BP 153/63
[2020-03-13] MEDS: FUROSEMIDE 40MG/4ML VIAL IVP SCH (09:49)
[2020-03-13] MEDS: TAMSULOSIN HCL 0.4MG SR CAPSULE PO SCH (09:49)
[2020-03-13 12:00] VITALS: BP 119/53
[2020-03-13] MEDS: RIVAROXABAN 20 MG TABLET PO SCH (17:32)
[2020-03-13] MEDS: MEROPENEM 2,000 MG in SODIUM CHLORIDE 0.9% 100 ML IV SCH (17:33)
[2020-03-13 17:39] VITALS: BP 141/66
[2020-03-14] MEDS: MEROPENEM 2,000 MG in SODIUM CHLORIDE 0.9% 100 ML IV SCH ×3 (01:13→17:01)
[2020-03-14] MEDS: HYDROCODONE/ACETAMINOPHEN 10/325MG TABLET PO PRN ×4 (01:14→23:11)
[2020-03-14] MEDS: MORPHINE SULFATE 4 MG/ML CPJ (NOT FOR IM USE) IV PRN ×3 (02:45→18:47)
[2020-03-14] MEDS: VANCOMYCIN 750 MG PREMIX 150 ML IV SCH ×2 (02:45→10:36)
[2020-03-14] MEDS: BLOOD SUGAR DIAGNOSTIC STRIP TEST SCH ×4 (05:41→21:00)
[2020-03-14] MEDS: INSULIN LISPRO 100 UNITS/ML SUBCUT SCH ×4 (05:41→21:00)
[2020-03-14 06:43] LABS: CHLORIDE 96 mEq/L (98-107)
[2020-03-14 07:34] LABS: BASOPHILS % 0.3 % (0.0-2.0); EOSINOPHILS % 1.5 % (0.0-5.0); HEMATOCRIT. 41.6 % (42.0-52.0); HEMOGLOBIN. 13.3 g/dL (14.0-18.0); LYMPHOCYTES % 7.8 % (20.0-50.0); MEAN CORPUSCULAR HEMOGLOBIN 26.3 pg (28.0-32.0); MEAN CORPUSCULAR VOLUME 82.3 fL (80.0-94.0); MEAN PLATELET VOLUME 9.6 fl (7.4-10.4); MONOCYTES % 5.4 % (2.0-8.0); PLATELET 142 x1000/uL (130-400); RED BLOOD CELL COUNT 5.05 mill/uL (4.7-6.1)
[2020-03-14] MEDS: FUROSEMIDE 40MG/4ML VIAL IVP SCH (08:05)
[2020-03-14] MEDS: TAMSULOSIN HCL 0.4MG SR CAPSULE PO SCH (08:11)
[2020-03-14 12:00] VITALS: BP_SYST 112; BP_DIAS 42; BP_DIAS 44
[2020-03-14 16:00] VITALS: BP 148/69
[2020-03-14] MEDS: RIVAROXABAN 20 MG TABLET PO SCH (16:54)
[2020-03-14 20:00] VITALS: BP 134/44
[2020-03-15] VITALS: BP 141/46
[2020-03-15] MEDS: MORPHINE SULFATE 4 MG/ML CPJ (NOT FOR IM USE) IV PRN ×2 (00:59→15:06)
[2020-03-15] MEDS: MEROPENEM 2,000 MG in SODIUM CHLORIDE 0.9% 100 ML IV SCH ×3 (00:59→17:35)
[2020-03-15 04:00] VITALS: BP 137/51
[2020-03-15] MEDS: BLOOD SUGAR DIAGNOSTIC STRIP TEST SCH ×4 (05:57→21:00)
[2020-03-15 07:30] LABS: BASOPHILS % 0.5 % (0.0-2.0); EOSINOPHILS % 1.9 % (0.0-5.0); HEMATOCRIT. 40.5 % (42.0-52.0); HEMOGLOBIN. 13.1 g/dL (14.0-18.0); LYMPHOCYTES % 8.7 % (20.0-50.0); MEAN CORPUSCULAR HEMOGLOBIN 26.7 pg (28.0-32.0); MEAN CORPUSCULAR VOLUME 82.6 fL (80.0-94.0); MEAN PLATELET VOLUME 9.5 fl (7.4-10.4); MONOCYTES % 5.6 % (2.0-8.0); NEUTROPHILS % 83.3 % (40.0-76.0); PLATELET 158 x1000/uL (130-400); RED BLOOD CELL COUNT 4.91 mill/uL (4.7-6.1); RED CELL DISTRIBUTION WIDTH 17.1 % (11.6-14.6)
[2020-03-15 07:38] LABS: CHLORIDE 95 mEq/L (98-107)
[2020-03-15] MEDS: INSULIN LISPRO 100 UNITS/ML SUBCUT SCH ×4 (07:50→21:00)
[2020-03-15 08:00] VITALS: BP 148/70
[2020-03-15] MEDS ORDERED: FENTANYL CITRATE/PF 50MCG/ML 2ML VIAL ONE ×2 (08:01→08:40)
[2020-03-15] MEDS ORDERED: ONDANSETRON HCL 4MG/2ML INJ ONE (08:01)
[2020-03-15] MEDS ORDERED: MIDAZOLAM HCL 2 MG/2 ML VIAL ONE (08:01)
[2020-03-15] MEDS ORDERED: METOCLOPRAMIDE HCL 10MG/2ML VIAL ONE (08:01)
[2020-03-15] MEDS ORDERED: PROPOFOL 200MG/20ML VIAL IV ONE (08:01)
[2020-03-15] MEDS ORDERED: GLYCOPYRROLATE 0.2 MG/ML 2ML VIAL ONE (08:01)
[2020-03-15] MEDS ORDERED: SUCCINYLCHOLINE CHLORIDE 200MG/10ML IV ONE (08:01)
[2020-03-15] MEDS: FUROSEMIDE 40MG/4ML VIAL IVP SCH (08:25)
[2020-03-15] MEDS: TAMSULOSIN HCL 0.4MG SR CAPSULE PO SCH (08:25)
[2020-03-15] MEDS ORDERED: ONDANSETRON HCL 4MG/2ML INJ IV PRN (09:00)
[2020-03-15] MEDS ORDERED: MORPHINE SULFATE 2 MG/ML CPJ (NOT FOR IM USE) IV PRN (09:00)
[2020-03-15] MEDS ORDERED: MEPERIDINE HCL/PF 25MG/ML CPJ IV PRN (09:00)
[2020-03-15] MEDS: HYDROMORPHONE HCL/PF 2MG/ML CPJ IV PRN ×7 (09:10→10:20)
[2020-03-15] MEDS: ONDANSETRON HCL 4MG/2ML INJ IV PRN (09:55)
[2020-03-15 12:00] VITALS: BP 148/74
[2020-03-15] MEDS: CARVEDILOL 6.25 MG TABLET PO SCH ×2 (15:05→22:36)
[2020-03-15] MEDS: COLCHICINE 0.6MG TABLET PO SCH (15:05)
[2020-03-15] MEDS: ALLOPURINOL 300 MG TABLET PO SCH (15:05)
[2020-03-15 16:00] VITALS: BP 138/60
[2020-03-15] MEDS: PREDNISONE 20MG TABLET PO SCH (17:35)
[2020-03-15] MEDS: RIVAROXABAN 20 MG TABLET PO SCH (17:35)
[2020-03-15 20:46] VITALS: BP 128/65
[2020-03-15] MEDS: HYDROCODONE/ACETAMINOPHEN 10/325MG TABLET PO PRN (22:37)
[2020-03-16 00:44] VITALS: BP 154/72
[2020-03-16] MEDS: MORPHINE SULFATE 4 MG/ML CPJ (NOT FOR IM USE) IV PRN ×2 (00:51→18:27)
[2020-03-16] MEDS: MEROPENEM 2,000 MG in SODIUM CHLORIDE 0.9% 100 ML IV SCH ×3 (01:08→16:30)
[2020-03-16 04:00] VITALS: BP 119/56
[2020-03-16] MEDS: OMEPRAZOLE 20MG CAPSULE EXTENDED RELEASE PO SCH (06:36)
[2020-03-16 06:42] LABS: HEMATOCRIT. 39.6 % (42.0-52.0); HEMOGLOBIN. 12.7 g/dL (14.0-18.0); MEAN CORPUSCULAR HEMOGLOBIN 26.6 pg (28.0-32.0); MEAN PLATELET VOLUME 9.2 fl (7.4-10.4); PLATELET 140 x1000/uL (130-400); RED BLOOD CELL COUNT 4.77 mill/uL (4.7-6.1); RED CELL DISTRIBUTION WIDTH 17.2 % (11.6-14.6)
[2020-03-16 06:50] LABS: CHLORIDE 97 mEq/L (98-107)
[2020-03-16] MEDS: INSULIN LISPRO 100 UNITS/ML SUBCUT SCH ×4 (07:50→22:01)
[2020-03-16 08:00] VITALS: BP 150/54
[2020-03-16] MEDS: HYDROCODONE/ACETAMINOPHEN 10/325MG TABLET PO PRN (08:15)
[2020-03-16] MEDS: SODIUM CHLORIDE 0.9% 1,000 ML IV SCH (09:00)
[2020-03-16] MEDS: FUROSEMIDE 40MG/4ML VIAL IVP SCH (10:07)
[2020-03-16] MEDS: CARVEDILOL 6.25 MG TABLET PO SCH ×2 (10:08→22:02)
[2020-03-16] MEDS: DILTIAZEM HCL 180MG CAPSULE CD 24HR PO SCH (10:08)
[2020-03-16] MEDS: COLCHICINE 0.6MG TABLET PO SCH (10:08)
[2020-03-16] MEDS: ALLOPURINOL 300 MG TABLET PO SCH (10:09)
[2020-03-16] MEDS: PREDNISONE 20MG TABLET PO SCH ×2 (10:09→18:16)
[2020-03-16] MEDS: TAMSULOSIN HCL 0.4MG SR CAPSULE PO SCH (10:09)
[2020-03-16] MEDS ORDERED: MORPHINE SULFATE 2 MG/ML CPJ (NOT FOR IM USE) IV PRN (10:30)
[2020-03-16 12:00] VITALS: BP 125/87
[2020-03-16] MEDS: BLOOD SUGAR DIAGNOSTIC STRIP TEST SCH ×3 (12:57→21:56)
[2020-03-16 16:00] VITALS: BP 126/58
[2020-03-16] MEDS: RIVAROXABAN 20 MG TABLET PO SCH (17:00)
[2020-03-16] MEDS: FINASTERIDE 5MG TABLET PO SCH (17:15)
[2020-03-16 18:01] LABS: PLATELET ESTIMATE NORMAL
[2020-03-16 20:00] VITALS: BP 140/56
[2020-03-17] VITALS: BP 137/63
[2020-03-17] MEDS: MEROPENEM 2,000 MG in SODIUM CHLORIDE 0.9% 100 ML IV SCH ×3 (00:12→17:25)
[2020-03-17] MEDS: MORPHINE SULFATE 4 MG/ML CPJ (NOT FOR IM USE) IV PRN ×3 (01:25→21:42)
[2020-03-17 04:00] VITALS: BP 142/53
[2020-03-17] MEDS: BLOOD SUGAR DIAGNOSTIC STRIP TEST SCH ×4 (06:23→21:41)
[2020-03-17] MEDS: OMEPRAZOLE 20MG CAPSULE EXTENDED RELEASE PO SCH (06:23)
[2020-03-17] MEDS: INSULIN LISPRO 100 UNITS/ML SUBCUT SCH ×4 (07:50→22:43)
[2020-03-17] MEDS: PREDNISONE 20MG TABLET PO SCH ×2 (07:50→17:25)
[2020-03-17 08:41] VITALS: BP 127/45
[2020-03-17] MEDS: CARVEDILOL 6.25 MG TABLET PO SCH ×2 (09:00→21:00)
[2020-03-17] MEDS: DILTIAZEM HCL 180MG CAPSULE CD 24HR PO SCH (09:33)
[2020-03-17] MEDS: FINASTERIDE 5MG TABLET PO SCH (09:34)
[2020-03-17] MEDS: ALLOPURINOL 300 MG TABLET PO SCH (09:34)
[2020-03-17] MEDS: FUROSEMIDE 40MG/4ML VIAL IVP SCH (09:38)
[2020-03-17] MEDS: COLCHICINE 0.6MG TABLET PO SCH (09:39)
[2020-03-17] MEDS: TAMSULOSIN HCL 0.4MG SR CAPSULE PO SCH (09:40)
[2020-03-17] MEDS: SODIUM CHLORIDE 0.9% 1,000 ML IV SCH (12:06)
[2020-03-17 12:09] VITALS: BP 137/50
[2020-03-17 13:28] LABS: HEMATOCRIT. 42.7 % (42.0-52.0); HEMOGLOBIN. 13.7 g/dL (14.0-18.0); MEAN CORPUSCULAR HEMOGLOBIN 26.5 pg (28.0-32.0); MEAN CORPUSCULAR VOLUME 82.7 fL (80.0-94.0); MEAN PLATELET VOLUME 9.2 fl (7.4-10.4); PLATELET 158 x1000/uL (130-400); RED BLOOD CELL COUNT 5.17 mill/uL (4.7-6.1); RED CELL DISTRIBUTION WIDTH 17.3 % (11.6-14.6)
[2020-03-17 13:32] LABS: CHLORIDE 98 mEq/L (98-107)
[2020-03-17] MEDS: ONDANSETRON HCL 4MG/2ML INJ IV PRN (14:20)
[2020-03-17 16:00] VITALS: BP 138/65
[2020-03-17] MEDS: RIVAROXABAN 20 MG TABLET PO SCH (17:26)
[2020-03-17 18:45] LABS: PLATELET ESTIMATE NORMAL
[2020-03-17 20:00] VITALS: BP 138/58
[2020-03-18] VITALS: BP 148/53
[2020-03-18] MEDS: MEROPENEM 2,000 MG in SODIUM CHLORIDE 0.9% 100 ML IV SCH ×4 (02:36→23:45)
[2020-03-18 04:00] VITALS: BP 145/49
[2020-03-18] MEDS: MORPHINE SULFATE 4 MG/ML CPJ (NOT FOR IM USE) IV PRN ×3 (06:25→20:36)
[2020-03-18] MEDS: BLOOD SUGAR DIAGNOSTIC STRIP TEST SCH ×4 (06:32→20:35)
[2020-03-18 07:22] LABS: HEMOGLOBIN. 12.2 g/dL (14.0-18.0); MEAN CORPUSCULAR HEMOGLOBIN 26.6 pg (28.0-32.0); MEAN CORPUSCULAR VOLUME 82.6 fL (80.0-94.0); MEAN PLATELET VOLUME 9.3 fl (7.4-10.4); PLATELET 147 x1000/uL (130-400); RED CELL DISTRIBUTION WIDTH 17.6 % (11.6-14.6)
[2020-03-18 07:39] LABS: CHLORIDE 98 mEq/L (98-107)
[2020-03-18 08:09] VITALS: BP 140/61
[2020-03-18] MEDS: COLCHICINE 0.6MG TABLET PO SCH (08:46)
[2020-03-18] MEDS: CARVEDILOL 6.25 MG TABLET PO SCH (08:46)
[2020-03-18] MEDS: DILTIAZEM HCL 180MG CAPSULE CD 24HR PO SCH (08:47)
[2020-03-18] MEDS: ALLOPURINOL 300 MG TABLET PO SCH (08:47)
[2020-03-18] MEDS: FINASTERIDE 5MG TABLET PO SCH (08:47)
[2020-03-18] MEDS: TAMSULOSIN HCL 0.4MG SR CAPSULE PO SCH (08:47)
[2020-03-18] MEDS: FUROSEMIDE 40MG/4ML VIAL IVP SCH (08:48)
[2020-03-18] MEDS: FAMOTIDINE 20MG TABLET PO SCH ×2 (08:48→20:34)
[2020-03-18] MEDS: PREDNISONE 20MG TABLET PO SCH ×2 (08:48→17:23)
[2020-03-18] MEDS: INSULIN LISPRO 100 UNITS/ML SUBCUT SCH ×4 (08:50→20:35)
[2020-03-18 12:00] VITALS: BP 141/60
[2020-03-18] MEDS: SODIUM CHLORIDE 0.9% 1,000 ML IV SCH (12:35)
[2020-03-18] MEDS: ONDANSETRON HCL 4MG/2ML INJ IV PRN (14:57)
[2020-03-18 16:00] VITALS: BP 134/57
[2020-03-18] MEDS: RIVAROXABAN 20 MG TABLET PO SCH (17:22)
[2020-03-18] MEDS: DILTIAZEM HCL 60MG TABLET PO SCH ×2 (17:24→23:45)
[2020-03-18 17:31] LABS: PLATELET ESTIMATE NORMAL
[2020-03-18 20:00] VITALS: BP 155/69
[2020-03-18] MEDS: CARVEDILOL 3.125 MG TABLET PO SCH (20:35)
[2020-03-19] VITALS: BP 148/68
[2020-03-19 04:00] VITALS: BP 129/72
[2020-03-19] MEDS: MORPHINE SULFATE 4 MG/ML CPJ (NOT FOR IM USE) IV PRN ×3 (05:22→22:14)
[2020-03-19] MEDS: DILTIAZEM HCL 60MG TABLET PO SCH ×3 (05:23→18:00)
[2020-03-19] MEDS: BLOOD SUGAR DIAGNOSTIC STRIP TEST SCH ×4 (05:41→20:40)
[2020-03-19] MEDS: INSULIN LISPRO 100 UNITS/ML SUBCUT SCH ×4 (05:41→21:00)
[2020-03-19 08:30] VITALS: BP 150/69
[2020-03-19] MEDS ORDERED: DILTIAZEM HCL 300MG CAPSULE SR 24HR PO SCH (09:00)
[2020-03-19] MEDS: CARVEDILOL 3.125 MG TABLET PO SCH ×2 (09:00→20:40)
[2020-03-19] MEDS: FINASTERIDE 5MG TABLET PO SCH (09:45)
[2020-03-19] MEDS: PREDNISONE 20MG TABLET PO SCH ×2 (09:45→17:45)
[2020-03-19] MEDS: TAMSULOSIN HCL 0.4MG SR CAPSULE PO SCH (09:55)
[2020-03-19] MEDS: FAMOTIDINE 20MG TABLET PO SCH ×2 (09:56→20:45)
[2020-03-19] MEDS: ALLOPURINOL 300 MG TABLET PO SCH (09:56)
[2020-03-19] MEDS: MEROPENEM 2,000 MG in SODIUM CHLORIDE 0.9% 100 ML IV SCH ×2 (09:57→17:44)
[2020-03-19] MEDS: FUROSEMIDE 40MG/4ML VIAL IVP SCH (09:57)
[2020-03-19] MEDS: COLCHICINE 0.6MG TABLET PO SCH (09:57)
[2020-03-19] MEDS: SODIUM CHLORIDE 0.9% 1,000 ML IV SCH (10:23)
[2020-03-19 10:31] LABS: BASOPHILS % 0.2 % (0.0-2.0); EOSINOPHILS % 0.1 % (0.0-5.0); HEMATOCRIT. 42.4 % (42.0-52.0); HEMOGLOBIN. 13.5 g/dL (14.0-18.0); LYMPHOCYTES % 8.7 % (20.0-50.0); MEAN CORPUSCULAR HEMOGLOBIN 26.2 pg (28.0-32.0); MEAN CORPUSCULAR VOLUME 82.4 fL (80.0-94.0); MEAN PLATELET VOLUME 9.1 fl (7.4-10.4); PLATELET 164 x1000/uL (130-400); RED BLOOD CELL COUNT 5.15 mill/uL (4.7-6.1); RED CELL DISTRIBUTION WIDTH 17.5 % (11.6-14.6)
[2020-03-19 10:46] LABS: CHLORIDE 97 mEq/L (98-107)
[2020-03-19 12:15] VITALS: BP 150/54
[2020-03-19] MEDS: HYDRALAZINE HCL 25MG TABLET PO SCH ×2 (14:06→20:45)
[2020-03-19 16:28] VITALS: BP 147/62
[2020-03-19] MEDS: RIVAROXABAN 20 MG TABLET PO SCH (17:44)
[2020-03-19 20:00] VITALS: BP 147/60
[2020-03-20] VITALS: BP 115/58
[2020-03-20] MEDS: MEROPENEM 2,000 MG in SODIUM CHLORIDE 0.9% 100 ML IV SCH ×4 (00:30→16:52)
[2020-03-20 04:00] VITALS: BP 133/64
[2020-03-20] MEDS: MORPHINE SULFATE 4 MG/ML CPJ (NOT FOR IM USE) IV PRN ×3 (04:27→22:49)
[2020-03-20] MEDS: DILTIAZEM HCL 60MG TABLET PO SCH ×4 (06:00→18:23)
[2020-03-20] MEDS: HYDRALAZINE HCL 25MG TABLET PO SCH ×3 (06:41→21:22)
[2020-03-20] MEDS: BLOOD SUGAR DIAGNOSTIC STRIP TEST SCH ×4 (06:50→21:19)
[2020-03-20] MEDS: PREDNISONE 20MG TABLET PO SCH ×2 (06:50→18:23)
[2020-03-20] MEDS: INSULIN LISPRO 100 UNITS/ML SUBCUT SCH ×4 (06:59→21:17)
[2020-03-20 07:40] LABS: BASOPHILS % 0.4 % (0.0-2.0); EOSINOPHILS % 0.1 % (0.0-5.0); HEMATOCRIT. 39.9 % (42.0-52.0); LYMPHOCYTES % 8.2 % (20.0-50.0); MEAN CORPUSCULAR HEMOGLOBIN 26.8 pg (28.0-32.0); MEAN CORPUSCULAR VOLUME 82.5 fL (80.0-94.0); MEAN PLATELET VOLUME 9.4 fl (7.4-10.4); MONOCYTES % 4.2 % (2.0-8.0); NEUTROPHILS % 87.1 % (40.0-76.0); PLATELET 146 x1000/uL (130-400); RED BLOOD CELL COUNT 4.84 mill/uL (4.7-6.1); RED CELL DISTRIBUTION WIDTH 17.3 % (11.6-14.6)
[2020-03-20 08:00] VITALS: BP 122/58
[2020-03-20 08:24] LABS: CHLORIDE 97 mEq/L (98-107)
[2020-03-20] MEDS: TAMSULOSIN HCL 0.4MG SR CAPSULE PO SCH (08:43)
[2020-03-20] MEDS: ALLOPURINOL 300 MG TABLET PO SCH (08:43)
[2020-03-20] MEDS: COLCHICINE 0.6MG TABLET PO SCH (08:43)
[2020-03-20] MEDS: FINASTERIDE 5MG TABLET PO SCH (08:43)
[2020-03-20] MEDS: FAMOTIDINE 20MG TABLET PO SCH ×2 (08:44→21:15)
[2020-03-20] MEDS: FUROSEMIDE 40MG/4ML VIAL IVP SCH (08:45)
[2020-03-20] MEDS: SODIUM CHLORIDE 0.9% 1,000 ML IV SCH (09:54)
[2020-03-20] MEDS: CARVEDILOL 3.125 MG TABLET PO SCH ×2 (09:57→21:00)
[2020-03-20 12:00] VITALS: BP 143/56
[2020-03-20 16:00] VITALS: BP 138/59
[2020-03-20] MEDS: RIVAROXABAN 20 MG TABLET PO SCH (16:52)
[2020-03-20 20:05] VITALS: BP 140/57
[2020-03-21] VITALS: BP 136/63
[2020-03-21] MEDS: DILTIAZEM HCL 60MG TABLET PO SCH ×4 (00:57→18:12)
[2020-03-21] MEDS: MEROPENEM 2,000 MG in SODIUM CHLORIDE 0.9% 100 ML IV SCH ×3 (01:01→17:06)
[2020-03-21 04:00] VITALS: BP 150/60
[2020-03-21] MEDS: BLOOD SUGAR DIAGNOSTIC STRIP TEST SCH ×4 (06:19→21:46)
[2020-03-21] MEDS: INSULIN LISPRO 100 UNITS/ML SUBCUT SCH ×4 (06:20→21:00)
[2020-03-21] MEDS: HYDRALAZINE HCL 25MG TABLET PO SCH ×3 (06:30→21:46)
[2020-03-21] MEDS: PREDNISONE 20MG TABLET PO SCH ×2 (06:30→18:12)
[2020-03-21] MEDS: MORPHINE SULFATE 4 MG/ML CPJ (NOT FOR IM USE) IV PRN (06:49)
[2020-03-21 08:00] VITALS: BP 104/59
[2020-03-21] MEDS: CARVEDILOL 3.125 MG TABLET PO SCH ×2 (09:00→21:46)
[2020-03-21] MEDS: HYDROCODONE/ACETAMINOPHEN 10/325MG TABLET PO PRN (09:21)
[2020-03-21] MEDS: ALLOPURINOL 300 MG TABLET PO SCH (09:22)
[2020-03-21] MEDS: COLCHICINE 0.6MG TABLET PO SCH (09:22)
[2020-03-21] MEDS: FAMOTIDINE 20MG TABLET PO SCH ×2 (09:22→21:45)
[2020-03-21] MEDS: TAMSULOSIN HCL 0.4MG SR CAPSULE PO SCH (09:22)
[2020-03-21] MEDS: FUROSEMIDE 40MG/4ML VIAL IVP SCH (09:22)
[2020-03-21] MEDS: FINASTERIDE 5MG TABLET PO SCH (09:22)
[2020-03-21 09:48] LABS: HEMATOCRIT. 43.3 % (42.0-52.0); HEMOGLOBIN. 13.9 g/dL (14.0-18.0); MEAN CORPUSCULAR HEMOGLOBIN 26.5 pg (28.0-32.0); MEAN CORPUSCULAR VOLUME 82.6 fL (80.0-94.0); MEAN PLATELET VOLUME 8.6 fl (7.4-10.4); PLATELET 160 x1000/uL (130-400); RED BLOOD CELL COUNT 5.24 mill/uL (4.7-6.1); RED CELL DISTRIBUTION WIDTH 17.1 % (11.6-14.6)
[2020-03-21 10:00] LABS: CHLORIDE 97 mEq/L (98-107)
[2020-03-21 12:00] VITALS: BP 160/60
[2020-03-21] MEDS: SODIUM CHLORIDE 0.9% 1,000 ML IV SCH (13:26)
[2020-03-21 14:22] LABS: PLATELET ESTIMATE NORMAL
[2020-03-21] MEDS: RIVAROXABAN 20 MG TABLET PO SCH (18:12)
[2020-03-21 20:00] VITALS: BP 144/61
[2020-03-21] MEDS: MORPHINE SULFATE 2 MG/ML CPJ (NOT FOR IM USE) IV PRN (20:27)
[2020-03-21 22:00] VITALS: BP 138/66
[2020-03-22] VITALS: BP 138/66
[2020-03-22] MEDS: DILTIAZEM HCL 60MG TABLET PO SCH ×4 (00:06→17:38)
[2020-03-22] MEDS: MEROPENEM 2,000 MG in SODIUM CHLORIDE 0.9% 100 ML IV SCH ×3 (00:06→17:35)
[2020-03-22] MEDS: MORPHINE SULFATE 2 MG/ML CPJ (NOT FOR IM USE) IV PRN (03:20)
[2020-03-22 04:00] VITALS: BP 153/63
[2020-03-22] MEDS: HYDROCODONE/ACETAMINOPHEN 10/325MG TABLET PO PRN ×2 (04:46→22:15)
[2020-03-22] MEDS: BLOOD SUGAR DIAGNOSTIC STRIP TEST SCH ×4 (05:46→21:20)
[2020-03-22] MEDS: INSULIN LISPRO 100 UNITS/ML SUBCUT SCH ×4 (05:46→21:22)
[2020-03-22] MEDS: HYDRALAZINE HCL 25MG TABLET PO SCH (06:40)
[2020-03-22] MEDS: PREDNISONE 20MG TABLET PO SCH ×2 (06:41→17:35)
[2020-03-22 08:00] VITALS: BP 159/60
[2020-03-22] MEDS: FINASTERIDE 5MG TABLET PO SCH (08:34)
[2020-03-22] MEDS: FUROSEMIDE 40MG/4ML VIAL IVP SCH (08:34)
[2020-03-22] MEDS: FAMOTIDINE 20MG TABLET PO SCH ×2 (08:34→21:20)
[2020-03-22] MEDS: ALLOPURINOL 300 MG TABLET PO SCH (08:34)
[2020-03-22] MEDS: COLCHICINE 0.6MG TABLET PO SCH (08:34)
[2020-03-22] MEDS: CARVEDILOL 3.125 MG TABLET PO SCH ×2 (08:41→21:20)
[2020-03-22] MEDS: TAMSULOSIN HCL 0.4MG SR CAPSULE PO SCH (08:42)
[2020-03-22 12:00] VITALS: BP 190/60
[2020-03-22] MEDS ORDERED: FURO-151 MT (12:42)
[2020-03-22] MEDS ORDERED: RIVA20TA MT (12:42)
[2020-03-22] MEDS ORDERED: HYDR-4009 MT (12:42)
[2020-03-22] MEDS: RIVAROXABAN 20 MG TABLET PO SCH (17:35)
[2020-03-22 20:00] VITALS: BP 132/70
[2020-03-22] MEDS: HYDRALAZINE HCL 50MG TABLET PO SCH (21:20)
[2020-03-23] VITALS: BP 148/64
[2020-03-23] MEDS: DILTIAZEM HCL 60MG TABLET PO SCH ×5 (01:12→23:52)
[2020-03-23] MEDS: MEROPENEM 2,000 MG in SODIUM CHLORIDE 0.9% 100 ML IV SCH ×4 (02:20→23:51)
[2020-03-23 04:00] VITALS: BP 172/69
[2020-03-23] MEDS: HYDRALAZINE HCL 50MG TABLET PO SCH ×4 (05:01→21:20)
[2020-03-23] MEDS: BLOOD SUGAR DIAGNOSTIC STRIP TEST SCH ×4 (06:40→21:17)
[2020-03-23] MEDS: PREDNISONE 20MG TABLET PO SCH ×2 (06:41→17:21)
[2020-03-23] MEDS: INSULIN LISPRO 100 UNITS/ML SUBCUT SCH ×4 (06:42→21:17)
[2020-03-23] MEDS: FUROSEMIDE 40MG/4ML VIAL IVP SCH (08:11)
[2020-03-23] MEDS: CARVEDILOL 3.125 MG TABLET PO SCH ×2 (08:11→20:22)
[2020-03-23] MEDS: FINASTERIDE 5MG TABLET PO SCH (08:11)
[2020-03-23] MEDS: TAMSULOSIN HCL 0.4MG SR CAPSULE PO SCH (08:11)
[2020-03-23] MEDS: ALLOPURINOL 300 MG TABLET PO SCH (08:11)
[2020-03-23] MEDS: FAMOTIDINE 20MG TABLET PO SCH ×2 (08:11→20:22)
[2020-03-23] MEDS: COLCHICINE 0.6MG TABLET PO SCH (08:11)
[2020-03-23] MEDS: HYDROCODONE/ACETAMINOPHEN 10/325MG TABLET PO PRN ×2 (08:28→20:22)
[2020-03-23 12:00] VITALS: BP 141/51
[2020-03-23 16:00] VITALS: BP 138/72
[2020-03-23] MEDS: RIVAROXABAN 20 MG TABLET PO SCH (17:21)
[2020-03-23 20:30] VITALS: BP 159/75
[2020-03-24] VITALS (7 sets, daily range): BP systolic 109–171; BP diastolic 58–84
[2020-03-24] MEDS: HYDRALAZINE HCL 50MG TABLET PO SCH ×3 (05:59→22:01)
[2020-03-24] MEDS: DILTIAZEM HCL 60MG TABLET PO SCH ×3 (06:00→17:43)
[2020-03-24] MEDS: BLOOD SUGAR DIAGNOSTIC STRIP TEST SCH ×4 (06:00→20:46)
[2020-03-24] MEDS: INSULIN LISPRO 100 UNITS/ML SUBCUT SCH ×4 (06:00→20:46)
[2020-03-24] MEDS: PREDNISONE 20MG TABLET PO SCH ×2 (08:45→17:43)
[2020-03-24] MEDS: MEROPENEM 2,000 MG in SODIUM CHLORIDE 0.9% 100 ML IV SCH ×2 (08:45→22:02)
[2020-03-24] MEDS: FINASTERIDE 5MG TABLET PO SCH (08:45)
[2020-03-24] MEDS: ONDANSETRON HCL 4MG/2ML INJ IV PRN ×2 (08:45→17:55)
[2020-03-24] MEDS: COLCHICINE 0.6MG TABLET PO SCH (08:45)
[2020-03-24] MEDS: ALLOPURINOL 300 MG TABLET PO SCH (08:45)
[2020-03-24] MEDS: FAMOTIDINE 20MG TABLET PO SCH ×2 (08:45→20:48)
[2020-03-24] MEDS: FUROSEMIDE 40MG/4ML VIAL IVP SCH (08:45)
[2020-03-24] MEDS: TAMSULOSIN HCL 0.4MG SR CAPSULE PO SCH (08:46)
[2020-03-24] MEDS: CARVEDILOL 3.125 MG TABLET PO SCH ×2 (08:46→20:48)
[2020-03-24] MEDS: RIVAROXABAN 20 MG TABLET PO SCH (17:45)
[2020-03-24] MEDS: HYDROCODONE/ACETAMINOPHEN 10/325MG TABLET PO PRN (18:40)
[2020-03-25] VITALS: BP 143/57
[2020-03-25] MEDS: DILTIAZEM HCL 60MG TABLET PO SCH ×2 (00:02→05:41)
[2020-03-25] MEDS: MEROPENEM 2,000 MG in SODIUM CHLORIDE 0.9% 100 ML IV SCH ×2 (00:02→09:17)
[2020-03-25] MEDS: HYDROCODONE/ACETAMINOPHEN 10/325MG TABLET PO PRN (02:57)
[2020-03-25 04:00] VITALS: BP 106/58
[2020-03-25] MEDS: BLOOD SUGAR DIAGNOSTIC STRIP TEST SCH (05:41)
[2020-03-25] MEDS: HYDRALAZINE HCL 50MG TABLET PO SCH (05:41)
[2020-03-25] MEDS: INSULIN LISPRO 100 UNITS/ML SUBCUT SCH (07:40)
[2020-03-25 08:00] VITALS: BP 169/68
[2020-03-25] MEDS: FUROSEMIDE 40MG/4ML VIAL IVP SCH (09:15)
[2020-03-25] MEDS: PREDNISONE 20MG TABLET PO SCH (09:17)
[2020-03-25] MEDS: FAMOTIDINE 20MG TABLET PO SCH (09:17)
[2020-03-25] MEDS: ALLOPURINOL 300 MG TABLET PO SCH (09:17)
[2020-03-25] MEDS: TAMSULOSIN HCL 0.4MG SR CAPSULE PO SCH (09:17)
[2020-03-25] MEDS: COLCHICINE 0.6MG TABLET PO SCH (09:17)
[2020-03-25] MEDS: FINASTERIDE 5MG TABLET PO SCH (09:17)
[2020-03-25] MEDS: CARVEDILOL 3.125 MG TABLET PO SCH (09:17)
[2020-03-25 10:47] VITALS: BP 169/68
[2020-03-25 13:00] VITALS: BP 146/68
[2020-03-25 19:15] VITALS: BP 162/68
== END 2020-03-25 16:15 | disposition home health service (06) | DRG 853 ==
LOC: ER 16:26 → MICUSO 20:00 → EDBEDREQ 20:03 → EDBEDREQSVC 20:03 → EDBEDREQTM 20:03 → 6WST 03-12 08:33 → 8WST 03-18 10:49
PROVIDERS: ADMIT Internal Medicine; ATTEND Internal Medicine
PROC: 0VB07ZZ Excision of Prostate, Via Natural or Artificial Opening (ICD-10-PCS; principal; 2020-03-15)
PROC: 0V907ZZ Drainage of Prostate, Via Natural or Artificial Opening (ICD-10-PCS; 2020-03-15)
DX: A41.51 Sepsis due to Escherichia coli [E. coli] (principal); I50.33 Acute on chronic diastolic (congestive) heart failure; J96.21 Acute and chronic respiratory failure with hypoxia; E43 Unspecified severe protein-calorie malnutrition; N41.2 Abscess of prostate; N39.0 Urinary tract infection, site not specified; L03.116 Cellulitis of left lower limb; L03.115 Cellulitis of right lower limb; I42.0 Dilated cardiomyopathy; E87.2 Acidosis; I43 Cardiomyopathy in diseases classified elsewhere; I48.92 Unspecified atrial flutter; E87.1 Hypo-osmolality and hyponatremia; R65.20 Severe sepsis without septic shock; I11.0 Hypertensive heart disease with heart failure; J44.9 Chronic obstructive pulmonary disease, unspecified; E11.65 Type 2 diabetes mellitus with hyperglycemia; R32 Unspecified urinary incontinence; I48.0 Paroxysmal atrial fibrillation; E78.5 Hyperlipidemia, unspecified; E66.9 Obesity, unspecified; G47.33 Obstructive sleep apnea (adult) (pediatric); K21.9 Gastro-esophageal reflux disease without esophagitis; B96.20 Unspecified Escherichia coli [E. coli] as the cause of diseases classified elsewhere; E87.8 Other disorders of electrolyte and fluid balance, not elsewhere classified; Z20.822 Contact with and (suspected) exposure to COVID-19; M10.9 Gout, unspecified; Z99.81 Dependence on supplemental oxygen; Z90.79 Acquired absence of other genital organ(s); Z82.49 Family history of ischemic heart disease and other diseases of the circulatory system; Z88.8 Allergy status to other drugs, medicaments and biological substances; Z88.5 Allergy status to narcotic agent; Z79.899 Other long term (current) drug therapy; Z71.3 Dietary counseling and surveillance; Z68.31 Body mass index [BMI] 31.0-31.9, adult; Z91.19 Patient's noncompliance with other medical treatment and regimen
CPT/HCPCS: 36415; 71045; 74177; 80048; 80053; 80202; 81003; 82962; 83605; 84145; 84443; 84484; 85025; 87077; 87186; 87426; 93005; 99291; J0330; J1170; J1815; J1940; J2185; J2250; J2270; J2405; J2543; J2704; J2765; J3010; J3370; J3490; J7030; J7050; J7060; J7512

== ENCOUNTER 2020-04-28 10:36 | Emergency (ER) | payer MEDICARE, MEDICAID ==
[~2020-04-28] VITALS: Ht 180.3 cm; Wt 113.5 kg
[~2020-04-28 10:36] MED LIST changes: -DILT360C27 MT; -P20 MT
[2020-04-28] MEDS ORDERED: SODIUM CHLORIDE 0.9% 1,000 ML IV ONE (11:15)
[2020-04-28 12:03] LABS: BASOPHILS % 1.4 % (0.0-2.0); EOSINOPHILS % 2.1 % (0.0-5.0); HEMATOCRIT. 43.2 % (42.0-52.0); MEAN CORPUSCULAR HEMOGLOBIN 26.6 pg (28.0-32.0); MEAN CORPUSCULAR VOLUME 81.8 fL (80.0-94.0); MEAN PLATELET VOLUME 8.2 fl (7.4-10.4); MONOCYTES % 7.4 % (2.0-8.0); NEUTROPHILS % 67.1 % (40.0-76.0); PLATELET 245 x1000/uL (130-400); RED BLOOD CELL COUNT 5.28 mill/uL (4.7-6.1); RED CELL DISTRIBUTION WIDTH 18.1 % (11.6-14.6)
[2020-04-28 12:11] LABS: CHLORIDE 102 mEq/L (98-107)
[2020-04-28 12:13] LABS: INR 1.2; PROTHROMBIN TIME 12.9 sec (9.6-11.0)
[2020-04-28 12:24] LABS: CLARITY URINE CLEAR (CLEAR); COLOR URINE YELLOW (YELLOW); KETONES URINE NEGATIVE (NEGATIVE); LEUKOCYTE ESTERASE URINE NEGATIVE (NEGATIVE); NITRITE URINE NEGATIVE (NEGATIVE); OCCULT BLOOD URINE NEGATIVE (NEGATIVE); PH URINE 7.5 (4.5-8.0); PROTEIN URINE NEGATIVE (NEGATIVE); SPECIFIC GRAVITY URINE 1.008 (1.005-1.030); UROBILINOGEN URINE 0.2 E.U./dL (0.2-1.0)
[2020-04-28] MEDS ORDERED: MORPHINE SULFATE 4 MG/ML CPJ (NOT FOR IM USE) IV ONE (12:45)
[2020-04-29 14:12] VITALS: BP 150/71
== END 2020-04-29 14:16 | disposition home or self-care (01) ==
LOC: ER 10:59
DX: R10.31 Right lower quadrant pain (principal); R10.32 Left lower quadrant pain; J45.909 Unspecified asthma, uncomplicated; I11.0 Hypertensive heart disease with heart failure; I50.9 Heart failure, unspecified; E11.9 Type 2 diabetes mellitus without complications; J44.9 Chronic obstructive pulmonary disease, unspecified; Z79.84 Long term (current) use of oral hypoglycemic drugs; Z88.6 Allergy status to analgesic agent; Z88.5 Allergy status to narcotic agent
CPT/HCPCS: 36415; 74176; 80053; 81003; 82962; 83690; 85025; 85610; 93005; 96361; 96374; 99285; J2270; J7030

== ENCOUNTER 2021-05-30 11:18 | Inpatient (IN) | payer MEDICARE, MEDICAID ==
[~2021-05-30] VITALS: Ht 180.3 cm; Wt 97.5 kg
[~2021-05-30 11:18] MED LIST changes: -OMEP40CA12 MT; +OMEP40CA20 MT
[2021-05-30 12:50] LABS: BASOPHILS % 1.1 % (0.0-2.0); EOSINOPHILS % 6.3 % (0.0-5.0); HEMATOCRIT. 45.1 % (42.0-52.0); HEMOGLOBIN. 14.9 g/dL (14.0-18.0); LYMPHOCYTES % 23.1 % (20.0-50.0); MEAN PLATELET VOLUME 8.9 fl (7.4-10.4); MONOCYTES % 9.3 % (2.0-8.0); NEUTROPHILS % 60.2 % (40.0-76.0); PLATELET 181 x1000/uL (130-400); RED CELL DISTRIBUTION WIDTH 15.4 % (11.6-14.6)
[2021-05-30 13:05] LABS: CHLORIDE 101 mEq/L (98-107)
[2021-05-30] MEDS ORDERED: VANCOMYCIN 1G PREMIX 200 ML IV ONE (14:45)
[2021-05-30] MEDS ORDERED: PIPERACILLIN/TAZ 3.375G PREMIX 50 ML IV ONE (14:45)
[2021-05-30] MEDS ORDERED: HYDROCODONE/ACETAMINOPHEN 5/325MG TABLET PO ONE (14:45)
[2021-05-30] MEDS ORDERED: VANCOMYCIN 1,000 MG in DEXT 5% WATER 250 ML IV NR (16:30)
[2021-05-30] MEDS ORDERED: PIPERACILLIN/TAZOBACTAM 3.375 G in DEXTROSE 5% WATER 50 ML IV NR (17:00)
[2021-05-31] MEDS: HYDROCODONE/ACETAMINOPHEN 10/325MG TABLET PO PRN ×2 (01:34→11:02)
[2021-05-31] MEDS ORDERED: NALOXONE HCL 0.4MG/ML VIAL IV PRN ×2 (10:00→11:30)
[2021-05-31] MEDS ORDERED: IPRATROPIUM/ALBUTEROL 0.5-3(2.5)MG/3ML NEB HHN PRN (11:15)
[2021-05-31] MEDS ORDERED: DEXTROSE 50% WATER 50ML SYRINGE IV PRN (11:15)
[2021-05-31] MEDS ORDERED: ONDANSETRON HCL 4MG/2ML INJ IV PRN (11:15)
[2021-05-31 12:00] VITALS: BP 155/69
[2021-05-31] MEDS: AMLODIPINE 10MG TABLET PO SCH (12:22)
[2021-05-31] MEDS: BLOOD SUGAR DIAGNOSTIC STRIP TEST SCH ×3 (12:29→21:00)
[2021-05-31] MEDS: INSULIN LISPRO 100 UNITS/ML SUBCUT SCH ×3 (13:10→21:00)
[2021-05-31] MEDS: LEVOFLOXACIN 500MG PREMIX 100 ML IV SCH (15:10)
[2021-05-31 16:00] VITALS: BP 136/61
[2021-05-31] MEDS ORDERED: VANCOMYCIN 1GM PMX (XELLIA) 200 ML IV SCH (16:00)
[2021-05-31] MEDS ORDERED: MORPHINE SULFATE 2 MG/ML CPJ (NOT FOR IM USE) IV NR (16:30)
[2021-05-31] MEDS: RIVAROXABAN 20 MG TABLET PO SCH (16:48)
[2021-05-31] MEDS: VANCOMYCIN 1GM PMX (XELLIA) 200 ML IV SCH (16:49)
[2021-05-31 20:00] VITALS: BP 133/48
[2021-05-31 20:06] VITALS: BP 155/55
[2021-05-31] MEDS: FUROSEMIDE 40MG/4ML VIAL IVP SCH (20:42)
[2021-05-31] MEDS: COLCHICINE 0.6MG TABLET PO SCH (21:00)
[2021-06-01] VITALS: BP 149/51
[2021-06-01] MEDS: HYDROCODONE/ACETAMINOPHEN 10/325MG TABLET PO PRN (02:25)
[2021-06-01 04:00] VITALS: BP 155/57
[2021-06-01] MEDS: INSULIN LISPRO 100 UNITS/ML SUBCUT SCH ×4 (07:12→21:00)
[2021-06-01] MEDS: BLOOD SUGAR DIAGNOSTIC STRIP TEST SCH ×4 (07:12→21:00)
[2021-06-01] MEDS: FUROSEMIDE 40MG/4ML VIAL IVP SCH (09:05)
[2021-06-01] MEDS: AMLODIPINE 10MG TABLET PO SCH (09:06)
[2021-06-01] MEDS: COLCHICINE 0.6MG TABLET PO SCH ×2 (09:06→23:21)
[2021-06-01] MEDS: VANCOMYCIN 1GM PMX (XELLIA) 200 ML IV SCH (10:20)
[2021-06-01 12:00] VITALS: BP 173/118
[2021-06-01] MEDS: OMEPRAZOLE 20MG CAPSULE EXTENDED RELEASE PO SCH (14:42)
[2021-06-01 16:00] VITALS: BP 168/71
[2021-06-01] MEDS ORDERED: HYDRALAZINE HCL 100MG TABLET PO SCH ×2 (16:00→21:00)
[2021-06-01] MEDS: LEVOFLOXACIN 500MG PREMIX 100 ML IV SCH (16:07)
[2021-06-01] MEDS: HYDRALAZINE HCL 100MG TABLET PO SCH ×2 (16:08→23:22)
[2021-06-01] MEDS: RIVAROXABAN 20 MG TABLET PO SCH (16:08)
[2021-06-01 20:00] VITALS: BP 130/61
[2021-06-02] VITALS: BP 111/65
[2021-06-02 04:00] VITALS: BP 143/64
[2021-06-02 06:20] LABS: EOSINOPHILS % 3.4 % (0.0-5.0); HEMOGLOBIN. 16.9 g/dL (14.0-18.0); LYMPHOCYTES % 25.4 % (20.0-50.0); MEAN CORPUSCULAR HEMOGLOBIN 28.1 pg (28.0-32.0); MEAN CORPUSCULAR VOLUME 84.7 fL (80.0-94.0); MEAN PLATELET VOLUME 9.3 fl (7.4-10.4); MONOCYTES % 6.8 % (2.0-8.0); NEUTROPHILS % 63.4 % (40.0-76.0); PLATELET 218 x1000/uL (130-400); RED BLOOD CELL COUNT 6.02 mill/uL (4.7-6.1); RED CELL DISTRIBUTION WIDTH 15.3 % (11.6-14.6)
[2021-06-02] MEDS: BLOOD SUGAR DIAGNOSTIC STRIP TEST SCH ×4 (06:54→21:00)
[2021-06-02] MEDS: INSULIN LISPRO 100 UNITS/ML SUBCUT SCH ×4 (06:55→22:33)
[2021-06-02] MEDS: VANCOMYCIN 1GM PMX (XELLIA) 200 ML IV SCH ×2 (07:30→23:51)
[2021-06-02 07:51] LABS: CHLORIDE 97 mEq/L (98-107)
[2021-06-02 08:00] VITALS: BP 122/61
[2021-06-02] MEDS: FUROSEMIDE 40MG/4ML VIAL IVP SCH (10:17)
[2021-06-02] MEDS: COLCHICINE 0.6MG TABLET PO SCH ×2 (10:17→22:28)
[2021-06-02] MEDS: OMEPRAZOLE 20MG CAPSULE EXTENDED RELEASE PO SCH (10:18)
[2021-06-02] MEDS: AMLODIPINE 10MG TABLET PO SCH (10:18)
[2021-06-02] MEDS: HYDRALAZINE HCL 100MG TABLET PO SCH ×2 (10:18→22:29)
[2021-06-02 12:00] VITALS: BP 152/56
[2021-06-02] MEDS: LEVOFLOXACIN 500MG TABLET PO SCH (12:32)
[2021-06-02 16:00] VITALS: BP 144/60
[2021-06-02] MEDS: RIVAROXABAN 20 MG TABLET PO SCH (17:36)
[2021-06-02 20:00] VITALS: BP 137/64
[2021-06-03] VITALS: BP 135/65
[2021-06-03] MEDS ORDERED: HYDROCODONE/ACETAMINOPHEN 5/325MG TABLET PO PRN (01:00)
[2021-06-03] MEDS ORDERED: HYDROCODONE/ACETAMINOPHEN 5/325MG TABLET PO SCH (01:15)
[2021-06-03 04:00] VITALS: BP 113/50
[2021-06-03 06:00] VITALS: BP 113/50
[2021-06-03] MEDS: BLOOD SUGAR DIAGNOSTIC STRIP TEST SCH ×4 (06:52→21:00)
[2021-06-03] MEDS: HYDROCODONE/ACETAMINOPHEN 10/325MG TABLET PO PRN ×2 (07:05→18:14)
[2021-06-03 08:00] VITALS: BP 137/59
[2021-06-03] MEDS: COLCHICINE 0.6MG TABLET PO SCH ×2 (08:38→20:25)
[2021-06-03] MEDS: HYDRALAZINE HCL 100MG TABLET PO SCH ×2 (08:39→20:24)
[2021-06-03] MEDS: OMEPRAZOLE 20MG CAPSULE EXTENDED RELEASE PO SCH (08:39)
[2021-06-03] MEDS: AMLODIPINE 10MG TABLET PO SCH (08:39)
[2021-06-03] MEDS: FUROSEMIDE 40MG/4ML VIAL IVP SCH (08:40)
[2021-06-03] MEDS: INSULIN LISPRO 100 UNITS/ML SUBCUT SCH ×4 (08:47→21:00)
[2021-06-03] MEDS: LEVOFLOXACIN 500MG TABLET PO SCH (13:37)
[2021-06-03] MEDS: VANCOMYCIN 1GM PMX (XELLIA) 200 ML IV SCH (18:14)
[2021-06-03] MEDS: RIVAROXABAN 20 MG TABLET PO SCH (18:15)
[2021-06-03 20:00] VITALS: BP 122/63
[2021-06-04] VITALS: BP 111/62
[2021-06-04] MEDS: HYDROCODONE/ACETAMINOPHEN 10/325MG TABLET PO PRN ×3 (02:45→20:57)
[2021-06-04 04:00] VITALS: BP 103/52
[2021-06-04] MEDS: INSULIN LISPRO 100 UNITS/ML SUBCUT SCH ×4 (07:50→21:00)
[2021-06-04 08:00] VITALS: BP 158/69
[2021-06-04] MEDS: BLOOD SUGAR DIAGNOSTIC STRIP TEST SCH ×4 (08:02→20:36)
[2021-06-04] MEDS: COLCHICINE 0.6MG TABLET PO SCH ×2 (08:29→20:54)
[2021-06-04] MEDS: AMLODIPINE 10MG TABLET PO SCH (08:29)
[2021-06-04] MEDS: OMEPRAZOLE 20MG CAPSULE EXTENDED RELEASE PO SCH (08:29)
[2021-06-04] MEDS: HYDRALAZINE HCL 100MG TABLET PO SCH ×2 (08:30→20:53)
[2021-06-04] MEDS: FUROSEMIDE 40MG/4ML VIAL IVP SCH (08:30)
[2021-06-04] MEDS ORDERED: LEVO500T89 MT (09:20)
[2021-06-04] MEDS ORDERED: DOXY100T2 MT (09:20)
[2021-06-04] MEDS ORDERED: TRAM50TA3 MT (10:54)
[2021-06-04 12:00] VITALS: BP 135/80
[2021-06-04] MEDS: LEVOFLOXACIN 500MG TABLET PO SCH (13:21)
[2021-06-04] MEDS: VANCOMYCIN 1GM PMX (XELLIA) 200 ML IV SCH (13:22)
[2021-06-04 16:00] VITALS: BP 156/70
[2021-06-04] MEDS: RIVAROXABAN 20 MG TABLET PO SCH (17:58)
[2021-06-04 20:00] VITALS: BP 124/63
[2021-06-05] VITALS: BP 140/65
[2021-06-05 04:00] VITALS: BP 141/75
[2021-06-05] MEDS: HYDROCODONE/ACETAMINOPHEN 10/325MG TABLET PO PRN ×3 (04:11→21:23)
[2021-06-05] MEDS: VANCOMYCIN 1GM PMX (XELLIA) 200 ML IV SCH (06:33)
[2021-06-05] MEDS: BLOOD SUGAR DIAGNOSTIC STRIP TEST SCH ×4 (06:34→21:20)
[2021-06-05] MEDS: OMEPRAZOLE 20MG CAPSULE EXTENDED RELEASE PO SCH (06:34)
[2021-06-05] MEDS: INSULIN LISPRO 100 UNITS/ML SUBCUT SCH ×4 (07:50→21:00)
[2021-06-05 08:00] VITALS: BP 107/50
[2021-06-05] MEDS: HYDRALAZINE HCL 100MG TABLET PO SCH ×2 (09:00→21:26)
[2021-06-05] MEDS: AMLODIPINE 10MG TABLET PO SCH (09:00)
[2021-06-05] MEDS: FUROSEMIDE 40MG/4ML VIAL IVP SCH (09:12)
[2021-06-05] MEDS: COLCHICINE 0.6MG TABLET PO SCH ×2 (09:14→21:21)
[2021-06-05] MEDS: LEVOFLOXACIN 500MG TABLET PO SCH (11:17)
[2021-06-05 12:00] VITALS: BP 117/66
[2021-06-05] MEDS ORDERED: FAMOTIDINE 20MG TABLET PO SCH (12:00)
[2021-06-05] MEDS ORDERED: SIMETHICONE 80MG TABLET CHEW PO SCH (13:00)
[2021-06-05 16:00] VITALS: BP 135/66
[2021-06-05] MEDS: RIVAROXABAN 20 MG TABLET PO SCH (16:35)
[2021-06-05 20:00] VITALS: BP 158/72
[2021-06-06] VITALS: BP 131/69
[2021-06-06] MEDS: VANCOMYCIN 1GM PMX (XELLIA) 200 ML IV SCH (01:03)
[2021-06-06] MEDS: HYDROCODONE/ACETAMINOPHEN 10/325MG TABLET PO PRN (03:38)
[2021-06-06 04:00] VITALS: BP 153/63
[2021-06-06] MEDS: BLOOD SUGAR DIAGNOSTIC STRIP TEST SCH (06:44)
[2021-06-06 08:00] VITALS: BP 108/48
[2021-06-06] MEDS: INSULIN LISPRO 100 UNITS/ML SUBCUT SCH (08:27)
[2021-06-06] MEDS: COLCHICINE 0.6MG TABLET PO SCH (08:45)
[2021-06-06] MEDS: AMLODIPINE 10MG TABLET PO SCH (08:46)
[2021-06-06] MEDS: HYDRALAZINE HCL 100MG TABLET PO SCH (08:47)
[2021-06-06] MEDS: FUROSEMIDE 40MG/4ML VIAL IVP SCH (08:48)
[2021-06-06] MEDS ORDERED: FAMOTIDINE 20MG TABLET PO SCH (09:00)
== END 2021-06-06 10:05 | disposition home or self-care (01) | DRG 602 ==
LOC: ER 11:18 → MICUSO 15:42 → 6EST 05-31 09:36
PROVIDERS: ADMIT Internal Medicine; ATTEND Internal Medicine
DX: L03.113 Cellulitis of right upper limb (principal); I50.33 Acute on chronic diastolic (congestive) heart failure; J96.20 Acute and chronic respiratory failure, unspecified whether with hypoxia or hypercapnia; M10.9 Gout, unspecified; E11.9 Type 2 diabetes mellitus without complications; I11.0 Hypertensive heart disease with heart failure; J44.9 Chronic obstructive pulmonary disease, unspecified; E66.9 Obesity, unspecified; I48.91 Unspecified atrial fibrillation; Z20.822 Contact with and (suspected) exposure to COVID-19; Z96.659 Presence of unspecified artificial knee joint; Z79.01 Long term (current) use of anticoagulants; Z82.49 Family history of ischemic heart disease and other diseases of the circulatory system; Z88.6 Allergy status to analgesic agent; Z88.8 Allergy status to other drugs, medicaments and biological substances; Z79.84 Long term (current) use of oral hypoglycemic drugs; Z79.899 Other long term (current) drug therapy; Z71.3 Dietary counseling and surveillance; Z68.30 Body mass index [BMI] 30.0-30.9, adult
CPT/HCPCS: 36415; 73130; 73200; 74018; 80048; 80053; 80202; 82962; 84550; 85025; 87426; 99285; J1815; J1940; J1956; J2270; J2543; J3370; J7060

== ENCOUNTER 2021-06-14 12:59 | Inpatient (IN) | payer MEDICARE, MEDICAID ==
[~2021-06-14] VITALS: Ht 180.3 cm; Wt 122.5 kg
[~2021-06-14 12:59] MED LIST changes: +DOXY100T2 MT; +LEVO500T89 MT; +OXYC1TAB5 MT; +TRAM50TA3 MT
[2021-06-14 14:50] LABS: EOSINOPHILS % 4.5 % (0.0-5.0); HEMATOCRIT. 48.9 % (42.0-52.0); MEAN CORPUSCULAR HEMOGLOBIN 27.8 pg (28.0-32.0); MEAN CORPUSCULAR VOLUME 84.6 fL (80.0-94.0); MEAN PLATELET VOLUME 9.8 fl (7.4-10.4); MONOCYTES % 7.7 % (2.0-8.0); NEUTROPHILS % 65.8 % (40.0-76.0); PLATELET 151 x1000/uL (130-400); RED BLOOD CELL COUNT 5.78 mill/uL (4.7-6.1); RED CELL DISTRIBUTION WIDTH 15.5 % (11.6-14.6)
[2021-06-14 15:01] LABS: CHLORIDE 103 mEq/L (98-107)
[2021-06-14] MEDS ORDERED: MORPHINE SULFATE 4 MG/ML CPJ (NOT FOR IM USE) IV STA (16:24)
[2021-06-14] MEDS ORDERED: MORPHINE SULFATE 4 MG/ML CPJ (NOT FOR IM USE) IV NR (17:42)
[2021-06-14] MEDS ORDERED: SODIUM CHLORIDE 0.9% 500 ML IV ONE (19:15)
[2021-06-14] MEDS ORDERED: IPRATROPIUM/ALBUTEROL 0.5-3(2.5)MG/3ML NEB HHN PRN (21:15)
[2021-06-14] MEDS ORDERED: GUAIFENESIN 200MG/10ML SUGAR FREE UDC PO PRN (21:15)
[2021-06-14] MEDS ORDERED: ONDANSETRON HCL 4MG/2ML INJ IV PRN (21:15)
[2021-06-14] MEDS ORDERED: HYDROCODONE/ACETAMINOPHEN 5/325MG TABLET PO PRN (21:15)
[2021-06-14] MEDS ORDERED: MAGNESIUM/ALUMINUM HYDROXIDE/SIMETHICONE 30ML UDC PO PRN (21:15)
[2021-06-14] MEDS ORDERED: DOCUSATE SODIUM 100MG CAPSULE PO PRN (21:15)
[2021-06-14] MEDS ORDERED: ACETAMINOPHEN 325MG TABLET PO PRN ×2 (21:15)
[2021-06-14] MEDS ORDERED: CLONIDINE 0.1MG TABLET PO PRN (21:15)
[2021-06-15] VITALS (7 sets, daily range): BP systolic 116–145; BP diastolic 55–91
[2021-06-15] MEDS ORDERED: MORPHINE SULFATE 2 MG/ML CPJ (NOT FOR IM USE) IV NR (00:45)
[2021-06-15] MEDS ORDERED: TRAMADOL 50MG TABLET PO PRN (01:00)
[2021-06-15] MEDS: NITROGLYCERIN 0.4MG TABLET SL SL PRN ×2 (01:38→04:32)
[2021-06-15 07:29] LABS: BASOPHILS % 0.6 % (0.0-2.0); EOSINOPHILS % 4.2 % (0.0-5.0); HEMATOCRIT. 45.4 % (42.0-52.0); LYMPHOCYTES % 26.4 % (20.0-50.0); MEAN CORPUSCULAR HEMOGLOBIN 27.7 pg (28.0-32.0); MEAN PLATELET VOLUME 10.5 fl (7.4-10.4); MONOCYTES % 9.4 % (2.0-8.0); NEUTROPHILS % 59.4 % (40.0-76.0); PLATELET 139 x1000/uL (130-400); RED CELL DISTRIBUTION WIDTH 15.3 % (11.6-14.6)
[2021-06-15 07:47] LABS: CHLORIDE 104 mEq/L (98-107)
[2021-06-15 07:56] LABS: CREATINE KINASE 174 IU/L (39-308)
[2021-06-15 08:06] LABS: CREATINE KINASE MB FRACTION 2.2 ng/mL (0.5-3.6); HDL CHOLESTEROL 41 mg/dL (40-59); LDL CHOLESTEROL 70 mg/dL (5-100); T4 FREE 1.25 ng/dL (0.76-1.46)
[2021-06-15] MEDS ORDERED: ENOXAPARIN 30MG/0.3ML SYR SUBCUT SCH (09:00)
[2021-06-15] MEDS ORDERED: FUROSEMIDE 40MG/4ML VIAL IV SCH (09:00)
[2021-06-15] MEDS: OMEPRAZOLE 20MG CAPSULE EXTENDED RELEASE PO SCH (09:10)
[2021-06-15] MEDS: FUROSEMIDE 40MG TABLET PO SCH ×2 (09:10→18:34)
[2021-06-15] MEDS: ALLOPURINOL 300 MG TABLET PO SCH (09:11)
[2021-06-15] MEDS: COLCHICINE 0.6MG TABLET PO SCH (09:11)
[2021-06-15] MEDS: CARVEDILOL 6.25 MG TABLET PO SCH ×2 (09:12→18:34)
[2021-06-15] MEDS: HYDROCODONE/ACETAMINOPHEN 5/325MG TABLET PO PRN (09:13)
[2021-06-15] MEDS ORDERED: REGADENOSON 0.4 MG/5 ML IV NR (10:30)
[2021-06-15] MEDS ORDERED: MAGNESIUM/ALUMINUM HYDROXIDE/SIMETHICONE 30ML UDC PO NR (17:31)
[2021-06-15] MEDS ORDERED: VISCOUS LIDOCAINE 2% 15 ML UDC PO NR (18:30)
[2021-06-15] MEDS ORDERED: MAGNESIUM 1 G PREMIX 100 ML IV NR (18:30)
[2021-06-15] MEDS ORDERED: KETOROLAC 30MG/ML VIAL IV NR (18:30)
[2021-06-15] MEDS: IPRATROPIUM/ALBUTEROL 0.5-3(2.5)MG/3ML NEB HHN SCH (21:12)
[2021-06-15] MEDS: BUDESONIDE 0.5MG/2ML NEB HHN SCH (21:12)
[2021-06-15] MEDS ORDERED: IOHEXOL-350 100 ML BOTTLE ONE (21:33)
[2021-06-15 22:29] LABS: *AMPHETAMINES SCREEN URINE NEGATIVE (NEGATIVE); *BARBITURATES SCREEN URINE NEGATIVE (NEGATIVE); *BENZODIAZEPINES SCREEN URINE PRESUMTIVE POSITIVE (NEGATIVE); *COCAINE SCREEN URINE NEGATIVE (NEGATIVE); CANNABINOID URINE SCREEN NEGATIVE (NEGATIVE); METHADONE URINE SCREEN NEGATIVE (NEGATIVE); OPIATES URINE SCREEN PRESUMTIVE POSITIVE (NEGATIVE); PHENCYCLIDINE URINE SCREEN NEGATIVE (NEGATIVE)
[2021-06-16] VITALS: BP 137/69
[2021-06-16] MEDS: IPRATROPIUM/ALBUTEROL 0.5-3(2.5)MG/3ML NEB HHN SCH ×4 (01:56→18:00)
[2021-06-16] MEDS: RIVAROXABAN 20 MG TABLET PO SCH ×2 (02:38→21:22)
[2021-06-16] MEDS: HYDROCODONE/ACETAMINOPHEN 5/325MG TABLET PO PRN (02:39)
[2021-06-16 04:00] VITALS: BP 137/59
[2021-06-16 08:00] VITALS: BP 129/56
[2021-06-16] MEDS: COLCHICINE 0.6MG TABLET PO SCH (09:00)
[2021-06-16] MEDS: CARVEDILOL 6.25 MG TABLET PO SCH ×2 (09:00→18:11)
[2021-06-16] MEDS: FUROSEMIDE 40MG TABLET PO SCH ×2 (09:00→18:11)
[2021-06-16] MEDS: OMEPRAZOLE 20MG CAPSULE EXTENDED RELEASE PO SCH (09:00)
[2021-06-16] MEDS: ALLOPURINOL 300 MG TABLET PO SCH (09:00)
[2021-06-16] MEDS ORDERED: REGADENOSON 0.4 MG/5 ML IV ONE (09:28)
[2021-06-16] MEDS: BUDESONIDE 0.5MG/2ML NEB HHN SCH ×2 (09:40→18:00)
[2021-06-16 12:00] VITALS: BP 132/79
[2021-06-16] MEDS ORDERED: NALOXONE HCL 0.4MG/ML VIAL IV PRN (13:00)
[2021-06-16] MEDS: MORPHINE SULFATE 2 MG/ML CPJ (NOT FOR IM USE) IV PRN ×2 (14:11→19:06)
[2021-06-16 16:00] VITALS: BP 147/66
[2021-06-16] MEDS ORDERED: MAGNESIUM/ALUMINUM HYDROXIDE/SIMETHICONE 30ML UDC PO NR (16:45)
[2021-06-16] MEDS ORDERED: VISCOUS LIDOCAINE 2% 15 ML UDC PO NR (17:30)
[2021-06-16] MEDS: TERBINAFINE HCL 250MG TABLET PO SCH (18:10)
[2021-06-16] MEDS: DICYCLOMINE HCL 10MG CAPSULE PO SCH (18:32)
[2021-06-16] MEDS ORDERED: FURO40TA5 MT (19:44)
[2021-06-16] MEDS ORDERED: TAMS-11 MT (19:51)
[2021-06-16] MEDS ORDERED: FLUT1BLS INH (19:51)
[2021-06-16] MEDS ORDERED: ZINC220C6 (19:51)
[2021-06-16] MEDS ORDERED: DILT360T13 MT (19:59)
[2021-06-16 20:00] VITALS: BP 137/44
[2021-06-16] MEDS ORDERED: HYDROCODONE/ACETAMINOPHEN 5/325MG TABLET PO NR (20:30)
[2021-06-16] MEDS ORDERED: KETOROLAC 30MG/ML VIAL IV NR (20:30)
[2021-06-16] MEDS: FAMOTIDINE 20MG TABLET PO SCH (21:22)
[2021-06-17] VITALS: BP 159/58
[2021-06-17] MEDS: DICYCLOMINE HCL 10MG CAPSULE PO SCH ×5 (00:17→23:16)
[2021-06-17] MEDS: MORPHINE SULFATE 2 MG/ML CPJ (NOT FOR IM USE) IV PRN ×3 (00:20→23:32)
[2021-06-17 00:37] LABS: BASOPHILS % 1.3 % (0.0-2.0); EOSINOPHILS % 6.3 % (0.0-5.0); HEMATOCRIT. 47.3 % (42.0-52.0); HEMOGLOBIN. 15.6 g/dL (14.0-18.0); LYMPHOCYTES % 28.4 % (20.0-50.0); MEAN CORPUSCULAR HEMOGLOBIN 27.8 pg (28.0-32.0); MEAN CORPUSCULAR VOLUME 84.2 fL (80.0-94.0); MEAN PLATELET VOLUME 10.2 fl (7.4-10.4); MONOCYTES % 8.2 % (2.0-8.0); NEUTROPHILS % 55.8 % (40.0-76.0); PLATELET 131 x1000/uL (130-400); RED BLOOD CELL COUNT 5.62 mill/uL (4.7-6.1); RED CELL DISTRIBUTION WIDTH 15.2 % (11.6-14.6)
[2021-06-17 00:56] LABS: CHLORIDE 102 mEq/L (98-107)
[2021-06-17] MEDS: IPRATROPIUM/ALBUTEROL 0.5-3(2.5)MG/3ML NEB HHN SCH ×4 (01:36→20:51)
[2021-06-17 04:00] VITALS: BP 160/59
[2021-06-17 08:00] VITALS: BP 156/80
[2021-06-17] MEDS: BUDESONIDE 0.5MG/2ML NEB HHN SCH ×3 (09:09→20:51)
[2021-06-17] MEDS: ASPIRIN 81MG TABLET PO SCH ×2 (09:15→10:48)
[2021-06-17] MEDS: ALLOPURINOL 300 MG TABLET PO SCH (10:48)
[2021-06-17] MEDS: COLCHICINE 0.6MG TABLET PO SCH (10:48)
[2021-06-17] MEDS: FAMOTIDINE 20MG TABLET PO SCH (10:48)
[2021-06-17] MEDS: CARVEDILOL 6.25 MG TABLET PO SCH ×2 (10:49→17:29)
[2021-06-17] MEDS: LOSARTAN POTASSIUM 50 MG TABLET PO SCH (10:49)
[2021-06-17] MEDS: FUROSEMIDE 40MG TABLET PO SCH ×2 (10:49→17:29)
[2021-06-17] MEDS: TERBINAFINE HCL 250MG TABLET PO SCH (10:56)
[2021-06-17] MEDS ORDERED: MAGNESIUM 2 G PREMIX 50 ML IV NR (11:00)
[2021-06-17 12:00] VITALS: BP 153/93
[2021-06-17] MEDS ORDERED: HYDR-4001 PO (14:43)
[2021-06-17 16:00] VITALS: BP 140/95
[2021-06-17 20:00] VITALS: BP 137/50
[2021-06-17] MEDS: RIVAROXABAN 20 MG TABLET PO SCH (20:59)
[2021-06-17] MEDS: SUCRALFATE 1 G/10 ML UDC PO SCH (20:59)
[2021-06-17 23:50] LABS: BASOPHILS % 0.7 % (0.0-2.0); HEMATOCRIT. 48.7 % (42.0-52.0); HEMOGLOBIN. 15.6 g/dL (14.0-18.0); LYMPHOCYTES % 26.9 % (20.0-50.0); MEAN CORPUSCULAR HEMOGLOBIN 28.3 pg (28.0-32.0); MEAN CORPUSCULAR VOLUME 88.2 fL (80.0-94.0); MEAN PLATELET VOLUME 9.6 fl (7.4-10.4); MONOCYTES % 8.4 % (2.0-8.0); PLATELET 98 x1000/uL (130-400); RED BLOOD CELL COUNT 5.52 mill/uL (4.7-6.1); RED CELL DISTRIBUTION WIDTH 15.4 % (11.6-14.6)
[2021-06-18] VITALS: BP 143/65
[2021-06-18] LABS: CHLORIDE 102 mEq/L (98-107)
[2021-06-18] MEDS: IPRATROPIUM/ALBUTEROL 0.5-3(2.5)MG/3ML NEB HHN SCH ×3 (02:13→21:46)
[2021-06-18 04:00] VITALS: BP 134/68
[2021-06-18] MEDS: SUCRALFATE 1 G/10 ML UDC PO SCH ×4 (05:58→21:27)
[2021-06-18] MEDS: DICYCLOMINE HCL 10MG CAPSULE PO SCH ×3 (05:58→17:20)
[2021-06-18] MEDS: MORPHINE SULFATE 2 MG/ML CPJ (NOT FOR IM USE) IV PRN (06:27)
[2021-06-18 08:00] VITALS: BP 148/53
[2021-06-18] MEDS: TERBINAFINE HCL 250MG TABLET PO SCH ×2 (09:00→09:02)
[2021-06-18] MEDS: ASPIRIN 81MG TABLET PO SCH (09:00)
[2021-06-18] MEDS: ALLOPURINOL 300 MG TABLET PO SCH (09:01)
[2021-06-18] MEDS: FUROSEMIDE 40MG TABLET PO SCH ×2 (09:01→17:20)
[2021-06-18] MEDS: COLCHICINE 0.6MG TABLET PO SCH (09:02)
[2021-06-18] MEDS: CARVEDILOL 6.25 MG TABLET PO SCH ×2 (09:02→17:00)
[2021-06-18] MEDS: LOSARTAN POTASSIUM 50 MG TABLET PO SCH (09:02)
[2021-06-18] MEDS: HYDROCODONE/ACETAMINOPHEN 5/325MG TABLET PO PRN ×2 (09:03→21:28)
[2021-06-18] MEDS: BUDESONIDE 0.5MG/2ML NEB HHN SCH (10:02)
[2021-06-18 12:00] VITALS: BP 142/38
[2021-06-18 16:00] VITALS: BP 100/38
[2021-06-18 20:00] VITALS: BP 136/52
[2021-06-18] MEDS: RIVAROXABAN 20 MG TABLET PO SCH (21:26)
[2021-06-19] VITALS: BP 132/51
[2021-06-19] MEDS: DICYCLOMINE HCL 10MG CAPSULE PO SCH ×4 (00:18→17:21)
[2021-06-19] MEDS ORDERED: MORPHINE SULFATE 2 MG/ML CPJ (NOT FOR IM USE) IV SCH (00:45)
[2021-06-19] MEDS: IPRATROPIUM/ALBUTEROL 0.5-3(2.5)MG/3ML NEB HHN SCH ×4 (02:00→21:45)
[2021-06-19 04:00] VITALS: BP 154/61
[2021-06-19 08:00] VITALS: BP 142/60
[2021-06-19] MEDS: ASPIRIN 81MG TABLET PO SCH (09:00)
[2021-06-19] MEDS: TERBINAFINE HCL 250MG TABLET PO SCH (09:00)
[2021-06-19] MEDS: FUROSEMIDE 40MG TABLET PO SCH ×2 (09:55→17:00)
[2021-06-19] MEDS: ALLOPURINOL 300 MG TABLET PO SCH (09:55)
[2021-06-19] MEDS: COLCHICINE 0.6MG TABLET PO SCH (09:55)
[2021-06-19] MEDS: LOSARTAN POTASSIUM 50 MG TABLET PO SCH (09:55)
[2021-06-19] MEDS: CARVEDILOL 6.25 MG TABLET PO SCH ×2 (09:55→17:21)
[2021-06-19] MEDS: SUCRALFATE 1 G/10 ML UDC PO SCH ×4 (09:57→21:00)
[2021-06-19 12:00] VITALS: BP 142/77
[2021-06-19] MEDS: HYDROCODONE/ACETAMINOPHEN 5/325MG TABLET PO PRN (12:06)
[2021-06-19 16:00] VITALS: BP 144/53
[2021-06-19 20:00] VITALS: BP 130/51
[2021-06-19] MEDS: RIVAROXABAN 20 MG TABLET PO SCH (21:22)
[2021-06-20] VITALS: BP 130/48
[2021-06-20] MEDS: IPRATROPIUM/ALBUTEROL 0.5-3(2.5)MG/3ML NEB HHN SCH (01:46)
[2021-06-20 04:00] VITALS: BP 132/51
[2021-06-20] MEDS: DICYCLOMINE HCL 10MG CAPSULE PO SCH ×2 (05:25)
[2021-06-20 07:54] VITALS: BP 129/70
[2021-06-20 08:00] VITALS: BP 130/60
== END 2021-06-20 09:20 | disposition home health service (06) | DRG 391 ==
LOC: ER 12:59 → 7WST 22:10 → EDBEDREQTM 22:15 → EDBEDREQ 22:15 → ENRESERV 22:37
PROVIDERS: ADMIT Family Medicine Adult Medicine; ATTEND Family Medicine Adult Medicine
DX: K21.9 Gastro-esophageal reflux disease without esophagitis (principal); I50.43 Acute on chronic combined systolic (congestive) and diastolic (congestive) heart failure; J96.20 Acute and chronic respiratory failure, unspecified whether with hypoxia or hypercapnia; I42.0 Dilated cardiomyopathy; J98.11 Atelectasis; I48.92 Unspecified atrial flutter; I43 Cardiomyopathy in diseases classified elsewhere; I11.0 Hypertensive heart disease with heart failure; E66.01 Morbid (severe) obesity due to excess calories; E11.51 Type 2 diabetes mellitus with diabetic peripheral angiopathy without gangrene; E78.5 Hyperlipidemia, unspecified; G47.33 Obstructive sleep apnea (adult) (pediatric); I48.0 Paroxysmal atrial fibrillation; J44.9 Chronic obstructive pulmonary disease, unspecified; D64.9 Anemia, unspecified; K76.0 Fatty (change of) liver, not elsewhere classified; I44.0 Atrioventricular block, first degree; M10.9 Gout, unspecified; I25.10 Atherosclerotic heart disease of native coronary artery without angina pectoris; Z96.653 Presence of artificial knee joint, bilateral; Z20.822 Contact with and (suspected) exposure to COVID-19; I87.8 Other specified disorders of veins; Z90.79 Acquired absence of other genital organ(s); Z99.81 Dependence on supplemental oxygen; Z91.19 Patient's noncompliance with other medical treatment and regimen; Z88.6 Allergy status to analgesic agent; Z90.49 Acquired absence of other specified parts of digestive tract; Z87.891 Personal history of nicotine dependence; Z71.3 Dietary counseling and surveillance; Z79.899 Other long term (current) drug therapy; Z82.49 Family history of ischemic heart disease and other diseases of the circulatory system; Z79.01 Long term (current) use of anticoagulants; Z68.37 Body mass index [BMI] 37.0-37.9, adult
CPT/HCPCS: 36415; 71045; 71275; 76705; 78452; 80048; 80053; 80061; 80305; 82550; 82553; 83735; 83880; 84439; 84443; 84484; 85025; 87426; 93005; 93017; 93306; 94640; 99285; A9500; J1885; J2270; J2785; J3475; J7040; J7626; Q9967